=== PATIENT | male | born 1960 | race Caucasian/White ===

== ENCOUNTER 2018-09-04 00:10 | Inpatient (IN) | payer OTHER ==
[~2018-09-04] VITALS: Ht 172.7 cm; Wt 85.9 kg
[2018-09-04] MEDS ORDERED: SOD CHLORIDE 0.9% 1,000 ML IV STA (00:16)
--- NOTE | 2018-09-04 00:20 | ERD ---
ER Documentation Chief Complaint Chief Complaint R39. R SIDED WEAKNESS. 3 PRIOR STROKES. FROM HOME. LWKT 1200. HPI 58-year-old man with a history of stroke and chronic right-sided paresis brought in by EMS from home for about 12 hours of generalized weakness and difficulty speaking, family member who is at the bedside is worried about another stroke because she states he normally speaks more and holds conversations and was able to bathe himself this morning. Since noon he has been more bedbound and does not speak or hold conversations. He has had no fevers or chills, no vomiting or diarrhea, no complaints of chest pain or shortness of breath. Patient was transported here by EMS without complications. ROS All systems reviewed and are negative except as per history of present illness. PMhx/Soc Hypertension, history of stroke with right-sided paresis, expressive dysphasia FmHx Family History: No diabetes Physical Exam Vitals Vital Signs Date Temp Pulse Resp B/P (MAP) Pulse Ox O2 O2 Flow FiO2 Time Delivery Rate 09/04/18 98.7 95 18 204/83 100 00:13 (123) Physical Exam Const: Well developed well-nourished man, appears dehydrated, afebrile HEENT: Dry mucous membranes, no cervical spine deformity Resp: Clear to auscultation bilaterally Cardio: Regular rate and rhythm, no murmurs Ext: No cyanosis, or edema, calves symmetrical Neur: Eyes are open patient is mute, responsive to voice, patient has chronic right upper and lower extremity paresis moving left upper and lower extremity without difficulty Psych: Normal Mood and Affect Result Diagram: 09/04/18 0028 09/04/18 0028 Results 24 hrs Laboratory Tests Test 09/04/18 00:28 White Blood Count 11.1 10^3/ul Red Blood Count 4.92 10^6/ul Hemoglobin 14.1 g/dl Hematocrit 41.3 % Mean Corpuscular Volume 83.9 fl Mean Corpuscular Hemoglobin 28.7 pg Mean Corpuscular Hemoglobin Concent 34.1 g/dl Red Cell Distribution Width 12.7 % Platelet Count 302 10^3/UL Mean Platelet Volume 9.8 fl Immature Granulocytes % 0.200 % Neutrophils % 77.4 % Lymphocytes % 16.5 % Monocytes % 5.3 % Eosinophils % 0.2 % Basophils % 0.4 % Nucleated Red Blood Cells % 0.0 /100WBC Immature Granulocytes # 0.020 10^3/ul Neutrophils # 8.6 10^3/ul Lymphocytes # 1.8 10^3/ul Monocytes # 0.6 10^3/ul Eosinophils # 0.0 10^3/ul Basophils # 0.0 10^3/ul Nucleated Red Blood Cells # 0.0 10^3/ul Sodium Level 142 mmol/L Potassium Level 3.6 mmol/L Chloride Level 99 mmol/L Carbon Dioxide Level 30 mmol/L Anion Gap 13 Blood Urea Nitrogen 21 mg/dl Creatinine 1.75 mg/dl Est Glomerular Filtrat Rate mL/min 40 mL/min Glucose Level 322 mg/dl Calcium Level 9.4 mg/dl Total Bilirubin 0.5 mg/dl Direct Bilirubin 0.00 mg/dl Indirect Bilirubin 0.5 mg/dl Aspartate Amino Transf (AST/SGOT) 23 IU/L Alanine Aminotransferase (ALT/SGPT) 17 IU/L Alkaline Phosphatase 110 IU/L Troponin I 0.056 ng/ml Total Protein 8.4 g/dl Albumin 4.5 g/dl Globulin 3.90 g/dl Albumin/Globulin Ratio 1.15 Lipase 64 U/L Current Medications Medications Dose Sig/Felipe Start Time Status Last (Trade) Ordered Route PRN Stop Time Admin Dose Reason Admin Sodium 1,000 ml @ Q1H STAT 09/04/18 DC 09/04/18 Chloride 1,000 mls/hr IV 00:16 09/04/18 00:53 01:15 Procedures/MDM IV line was established patient was placed on cardiac exercise specialist rhythm strip revealed a sinus rhythm at about 80 bpm with upright P and T waves. Patient was afebrile I administered 1 L normal saline IV EKG performed, read by me revealed a normal sinus rhythm at 91 bpm, normal axis, left ventricular conduction delay QRS duration 112 ms, no concerning ST elevations or depressions noted, diffuse T wave inversions 1 view chest x-ray performed, read by me reveals a pacemaker in the left chest, no acute infiltrates, no pneumothorax. CT scan of the brain was performed there is no acute bleed mass or shift, old CVAs noted. I administered aspirin 324 mg p.o. for neuro protective measures and enalapril 1.25 mg IV x1 for hypertension. CBC was unremarkable, electrolytes revealed dehydration with a BUN/creatinine of 21/1.8, liver function test normal, troponin negative, urinalysis is pending I will follow-up, if positive I will treat with antibiotics. Patient will be admitted to telemetry setting for continued medical management and neurology consultation, possible MRI Departure Diagnosis: Primary Impression: Acute weakness Additional Impressions: Acute dehydration Stroke CVA mechanism: unspecified Qualified Codes: I63.9 - Cerebral infarction, unspecified Altered mental status Altered mental status type: unspecified Qualified Codes: R41.82 - Altered mental status, unspecified Condition: AUGUSTINE Redd MD Sep 04, 2018 00:20
[2018-09-04] MEDS ORDERED: ENALAPRILAT 1.25 MG INJ IV ONE (02:00)
[2018-09-04] MEDS ORDERED: ASPIRIN 81 MG TAB PO ONE (02:00)
[2018-09-04] MEDS ORDERED: SOD CHLORIDE 0.9% 1,000 ML IV SCH (02:07)
[2018-09-04] MEDS ORDERED: ACETAMINOPHEN 650 MG SUPP PR PRN (02:30)
[2018-09-04] MEDS ORDERED: hydrALAzine 20 MG INJ IV PRN (02:30)
[2018-09-04] MEDS ORDERED: NACL 0.9% 3 ML SYG IV SCH (02:30)
--- NOTE | 2018-09-04 05:29 | HP ---
Date/Time of Note Date/Time of Note DATE: 09/04/18 TIME: 05:20 Assessment/Plan VTE Prophylaxis SCD applied (from Nsg): Yes Pharmacological prophylaxis: NA/contraindicated Pharm contraindication: low risk/ambulating Lines/Catheters IV Catheter Type (from Nrsg): Saline Lock Assessment/Plan Hospital Course This is a 58-year-old male being admitted to the telemetry floor for: #1 acute CVA: Patient has left-sided facial droop with right-sided weakness. Permissive hypertension for the first 24 hours, PRN hydralazine for blood pressure greater than 220/120 . Will initiate blood pressure medications after the 24-hour sonia from the incident. Patient did receive aspirin in the emergency room. Check hemoglobin a1C, lipid panel, TSH. MRI of the brain, MRA of the head and neck, 2D echocardiogram with Doppler study, carotid Doppler ultrasound. Neurology . #2 BRIDGETTE: Likely prerenal etiology, from previous baseline creatinine. Will monitor kidney function. Avoid nephrotoxic agents. We will hydrate the patient. #3 history of CVA : Patient has a history of 3 CVAs #4 insulin-dependent diabetes mitis: Insulin sliding scale, will need to confirm patient's home medications, will check hemoglobin A 1C next #5 coronary artery disease: Continue home medications, will check an echocardiogram with bubble study #6 DVT GI prophylaxis: SCDs, no GI prophylaxis indicated Further treatment strategy will be implemented as per the clinical Result Diagram: 09/04/18 0028 09/04/18 0028 Results 24hrs Laboratory Tests Test 09/04/18 00:28 White Blood Count 11.1 H Red Blood Count 4.92 Hemoglobin 14.1 Hematocrit 41.3 L Mean Corpuscular Volume 83.9 Mean Corpuscular Hemoglobin 28.7 L Mean Corpuscular Hemoglobin Concent 34.1 Red Cell Distribution Width 12.7 Platelet Count 302 Mean Platelet Volume 9.8 Immature Granulocytes % 0.200 Neutrophils % 77.4 H Lymphocytes % 16.5 Monocytes % 5.3 Eosinophils % 0.2 Basophils % 0.4 Nucleated Red Blood Cells % 0.0 Immature Granulocytes # 0.020 Neutrophils # 8.6 H Lymphocytes # 1.8 Monocytes # 0.6 Eosinophils # 0.0 Basophils # 0.0 Nucleated Red Blood Cells # 0.0 Urine Color YELLOW Urine Clarity CLEAR Urine pH 6.0 Urine Specific [place] 1.020 Urine Ketones NEGATIVE Urine Nitrite NEGATIVE Urine Bilirubin NEGATIVE Urine Urobilinogen NEGATIVE Urine Leukocyte Esterase NEGATIVE Urine Microscopic RBC 1 Urine Microscopic WBC 1 Urine Hemoglobin NEGATIVE Urine Glucose 3+ H Urine Total Protein 3+ H Sodium Level 142 Potassium Level 3.6 Chloride Level 99 Carbon Dioxide Level 30 Anion Gap 13 Blood Urea Nitrogen 21 H Creatinine 1.75 H Est Glomerular Filtrat Rate mL/min 40 L Glucose Level 322 H Calcium Level 9.4 Total Bilirubin 0.5 Direct Bilirubin 0.00 Indirect Bilirubin 0.5 Aspartate Amino Transf (AST/SGOT) 23 Alanine Aminotransferase (ALT/SGPT) 17 Alkaline Phosphatase 110 Troponin I 0.056 Total Protein 8.4 H Albumin 4.5 Globulin 3.90 H Albumin/Globulin Ratio 1.15 Lipase 64 HPI/ROS Admit Date/Time Admit Date/Time Hx of Present Illness Chief complaint: Generalized weakness, difficulty speaking 58-year-old man with a history of stroke and chronic right-sided paresis brought in by EMS from home for about 12 hours of generalized weakness and difficulty speaking, family member who is at the bedside is worried about another stroke because she states he normally speaks more and holds conversations and was able to bathe himself this morning. Since noon he has been more bedbound and does not speak or hold conversations. He has had no fevers or chills, no vomiting or diarrhea, no complaints of chest pain or shortness of breath. does state that he typically uses a walker at home but also is able to walk short distances without the use of a walker. Allergies: NKDA Medications: We will need to confirm patient's home medication ROS Const: As per HPI Eyes : No pain discharge or redness or change in visual acuity ENT: No pain, sore throat, congestion, congestion, dysphagia or discharge Respiratory: No shortness of breath, cough, sputum, wheezing, or pleuritic pain Cardiovascular: As per HPI GI : no change in appetite, abdominal pain, nausea, vomiting, diarrhea, constipation, or change in the color his stool Genitourinary: No dysuria, hematuria, flank pain , discharge or CVA tenderness Musculoskeletal: No joint pain, back pain, neck pain, restricted range of motion in neck or joints Skin: No rash, bruising or hives Neuro: No headache, dizziness, syncope, seizure, focal weakness Endocrine: No polyuria, polydipsia, temperature intolerance Psych: No hallucination, depression, anxiety or suicidal ideation PMH/Family/Social Past Medical History CVA x3 Insulin-dependent diabetes mellitus Pacemaker Coronary disease Medications Current Medications Sodium Chloride 1,000 ml @ 75 mls/hr [id number] IV ; Start 09/04/18 at 02:07; Stop 09/05/18 at 02:06 IV Flush (NS 3 ml) 3 ml PER PROTOCOL IV ; Start 09/04/18 at 02:30 Acetaminophen (Tylenol Supp) 650 mg Q6H PRN [place] .PAIN 1-3 OR TEMP; Start 09/04/18 at 02:30 Hydralazine HCl (Apresoline) 10 mg Q4H PRN IV ELEVATED BLOOD PRESSURE; Start 09/04/18 at 02:30 Amlodipine Besylate (Norvasc) 5 mg DAILY PO ; Start 09/04/18 at 14:00 Coded Allergies: No Known Allergy (Unverified , 09/04/18) Past Surgical History Pacemaker insertion Family History Significant Family History: no pertinent family hx Social History Smoking Status: Former smoker Exam/Review of Systems Vital Signs Vitals Vital Signs Date Temp Pulse Resp B/P (MAP) Pulse Ox O2 O2 Flow FiO2 Time Delivery Rate 09/04/18 97.6 77 17 151/76 99 Room Air 04:10 (101) Exam Exam General: Currently lying in bed in no acute distress HEENT: Atraumatic, normocephalic. The pupils are equal, round and reactive. Extraocular motor are intact, left-sided facial droop Neck: Supple with full range of motion. No rigidity or meningismus Chest: Nontender Lungs: Clear to auscultation bilaterally no crackles rales or wheezing Heart: Normal S1-S2, Regular rhythm and rate. No murmur, S3, or S4 Abdomen: Soft , nontender, nondistended , bowel sounds are present. No guarding no rebound tenderness , No masses or organomegaly. No costovertebral temporal angle mass Extremities: Normal to inspection, no edema no cyanosis Neurologic: Awake, but nonverbal, patient does have strength 2 out of 5 in bilateral upper and lower extremities, patient is able to move his bilateral upper and lower left extremity.. Additional Comments PROCEDURE: CT Brain without contrast. CLINICAL INDICATION: Altered mental status TECHNIQUE: A CT of the brain was performed utilizing axial imaging from the skull base through the vertex without IV contrast. Multiplanar reformatted images were made. Images were reviewed on a PACS workstation. CTDIvol: 39.30 mGy DLP: 634.23 mGycm DICOM images are available. One or more of the following dose reduction techniques were utilized: 1.) Automated exposure control 2.) Adjustment of the mA +/- kV according to patient's size 3.) Use of iterative reconstruction technique. COMPARISON: None FINDINGS: CALVARIUM: Regional bones are intact. SINUSES: Paranasal sinuses and mastoid air cells are clear. BRAIN: There is mild cerebral volume loss and there is patchy diminished attenuation within the subcortical and periventricular white matter, likely indicating chronic small vessel ischemic changes. Atherosclerotic calcifications noted at the carotid siphons. Prominent relatively symmetric calcifications present in the bilateral basal ganglia and thalami. No evidence for acute ischemia. There is no significant mass effect or evidence of acute hemorrhage. Ventricular prominence is in keeping with degree of sulcal and fissural widening. IMPRESSION: 1. No acute intracranial abnormality. 2. Generalized volume loss, atherosclerosis, moderate chronic small vessel ischemic changes. 3. Prominent calcifications in the bilateral thalami and basal ganglia, chronic and nonspecific, may represent idiopathic calcification, sequela of hyper/ hypoparathyroidism versus remote sequela of toxic exposure or infection. RPTAT: [facility] Physician Efren Date Time Electronically viewed and signed by Physician Efren on 09/04/2018 02:37 xB/ CC: AUGUSTINE JULIAN MD [id number] PROCEDURE: XR Chest. CLINICAL INDICATION: Abdominal pain. TECHNIQUE: PA and Lateral views of the chest were obtained. COMPARISON: None. FINDINGS: Left anterior chest wall dual chamber cardiac pacer, with intact pacing leads. Lead tips overlying the expected locations of the right atrium right ventricle. Cardiomegaly with mild pulmonary vascular congestion. Right pleural effusion and right mid lung and lung base atelectasis versus airspace disease. No signs of pleural fluid or pneumothorax are seen. The osseous structures and soft tissues are unremarkable. IMPRESSION: 1. Cardiomegaly and mild failure. 2. Right pleural effusion with right mid lung and lung base atelectasis. 3. Differential considerations include right lung base pneumonia. RPTAT: [facility] Physician Dorcas Date Time Electronically viewed and signed by Angelita Vasquez Physician on 09/04/2018 01:34 RS/ CC: AUGUSTINE JULIAN MD [id number] LEBRON GARCIA Sep 04, 2018 05:29
[2018-09-04 08:20] VITALS: BP 184/84; PULSE 76; RESP 17
[2018-09-04 09:31] VITALS: Ht 172.7 cm; Wt 85.9 kg
[2018-09-04] MEDS ORDERED: ASPI-903 PO (11:06)
[2018-09-04] MEDS ORDERED: FURO20TA3 PO (11:12)
[2018-09-04] MEDS ORDERED: SPIR100T4 PO (11:12)
[2018-09-04] MEDS ORDERED: ATOR-2 PO (11:12)
[2018-09-04] MEDS ORDERED: CHOL100062 PO (11:12)
[2018-09-04] MEDS ORDERED: INSU100I33 SC (11:17)
[2018-09-04] MEDS ORDERED: BENA5TAB33 PO (11:17)
[2018-09-04] MEDS ORDERED: FLUO10CA17 PO (11:17)
[2018-09-04] MEDS ORDERED: NOVO3I SC ×3 (11:17)
[2018-09-04] MEDS ORDERED: FER325 PO (11:17)
[2018-09-04] MEDS ORDERED: HYDR-3672 PO (11:17)
[2018-09-04] MEDS ORDERED: TAMS-14 PO (11:17)
[2018-09-04 11:36] VITALS: BP 174/82; PULSE 73; RESP 17
[2018-09-04] MEDS: AMLODIPINE 5 MG TAB PO SCH (13:14)
--- NOTE | 2018-09-04 13:19 | CONSI ---
Assessment/Plan Assessment/Plan Assessment/Plan (Recall) 58 M c/ report of prior stroke w/ ? residual R sided weakness (? L MCA) and other comorbidities... who presents for evaluation of new aphasia. The clinical picture is worrisome for a recurrent stroke. Focal seizure is additionally considered (especially given the chronicity of his R sided weakness...). Recrudescence is a Dx of exclusion.. Head CT is without obvious acute intracranial pathology. MRI brain is contraindicated 2/2 pacemaker. CTA is presently limited by acute renal failure.. LDL 148; A1C 8.1% P: EEG to evaluate for epileptiform activity Repeat CTH in am to evaluate for interval change CTA H/N when able, should kidney function continue to improve Await echo read Add UDS, ESR, RPR Agree w/ asa daily for secondary stroke prevention for now Add Lipitor 80 hs for the same.. Other risk factor modification and other medical management per primary PT/OT/ST as necessary Will follow clinically Consultation Date/Type/Reason Admit Date/Time Type of Consult Neurology Reason for Consultation aphasia Requesting Provider: LEBRON GARCIA Date/Time of Note DATE: 09/04/18 TIME: 13:06 Hx of Present Illness The patient is presently unable to contribute a Hx. It is elsewhere noted: 58-year-old man with a history of stroke and chronic right-sided paresis brought in by EMS from home for about 12 hours of generalized weakness and difficulty speaking, family member who is at the bedside is worried about another stroke because she states he normally speaks more and holds conversations and was able to bathe himself this morning. Since noon he has been more bedbound and does not speak or hold conversations. He has had no fevers or chills, no vomiting or diarrhea, no complaints of chest pain or shortness of breath. does state t hat he typically uses a walker at home but also is able to walk short distances without the use of a walker. Allergies: NKDA limited by aphasia Objective Exam Vitals Vital Signs Date Temp Pulse Resp B/P (MAP) Pulse Ox O2 O2 Flow FiO2 Time Delivery Rate 09/04/18 97.4 73 17 174/82 96 11:36 (112) 09/04/18 Room Air 08:20 Exam PE: Gen Appearance: No Apparent Distress HEENT: Normocephalic Cardiovascular: Regular rate Abdomen: Soft Extremities: Dry NE: The patient was alert though nonverbal. Cranial nerve examination was limited by mental status. Pupils were equal and reactive to light. There was no afferent pupillary defect. Funduscopic examination was limited. Face was grossly symmetric, w/ present corneal and cough reflexes. Tone was normal. Muscle bulk was normal. I did not see fasciculations. The patient moved his left side with good strength on command, though was weak on the right. Coordination and gait testing was limited by mental status. Arm and leg reflexes were brisk on the right. Ríos's sign was absent. Plantar response was extensor on the right. Results Result Diagram: 09/04/18 0028 09/04/18 0957 Results 24hrs Laboratory Tests Test 09/04/18 00:28 09/04/18 07:40 09/04/18 09:56 09/04/18 09:57 White Blood Count 11.1 H Red Blood Count 4.92 Hemoglobin 14.1 Hematocrit 41.3 L Mean Corpuscular Volume 83.9 Mean Corpuscular 28.7 L Hemoglobin Mean Corpuscular 34.1 Hemoglobin Concent Red Cell Distribution 12.7 Width Platelet Count 302 Mean Platelet Volume 9.8 Immature Granulocytes % 0.200 Neutrophils % 77.4 H Lymphocytes % 16.5 Monocytes % 5.3 Eosinophils % 0.2 Basophils % 0.4 Nucleated Red Blood 0.0 Cells % Immature Granulocytes # 0.020 Neutrophils # 8.6 H Lymphocytes # 1.8 Monocytes # 0.6 Eosinophils # 0.0 Basophils # 0.0 Nucleated Red Blood 0.0 Cells # Urine Color YELLOW Urine Clarity CLEAR Urine pH 6.0 Urine Specific [place] 1.020 Urine Ketones NEGATIVE Urine Nitrite NEGATIVE Urine Bilirubin NEGATIVE Urine Urobilinogen NEGATIVE Urine Leukocyte Esterase NEGATIVE Urine Microscopic RBC 1 Urine Microscopic WBC 1 Urine Hemoglobin NEGATIVE Urine Glucose 3+ H Urine Total Protein 3+ H Sodium Level 142 141 Potassium Level 3.6 3.5 Chloride Level 99 108 Carbon Dioxide Level 30 25 Anion Gap 13 8 Blood Urea Nitrogen 21 H 18 Creatinine 1.75 H 1.42 H Est Glomerular Filtrat 40 L 51 L Rate mL/min Glucose Level 322 H 83 # Calcium Level 9.4 8.7 Total Bilirubin 0.5 Direct Bilirubin 0.00 Indirect Bilirubin 0.5 Aspartate Amino 23 Transf (AST/SGOT) Alanine 17 Aminotransferase (ALT/SG PT) Alkaline Phosphatase 110 Troponin I 0.056 Total Protein 8.4 H Albumin 4.5 Globulin 3.90 H Albumin/Globulin Ratio 1.15 Lipase 64 Bedside Glucose 95 Hemoglobin A1c 8.1 H Triglycerides Level 301 H Cholesterol Level 233 H LDL Cholesterol, 148 Calculated HDL Cholesterol 25 L Cholesterol/HDL Ratio 9.3 Past Medical History reviewed Home Meds Reported Medications Insulin Aspart* (Novolog Insulin Pen*) 100 Unit/Ml Soln, 15 UNIT SC WITH LUNCH, EA 09/04/18 Insulin Aspart* (Novolog Insulin Pen*) 100 Unit/Ml Soln, 20 UNIT SC WITH DINNER, EA 09/04/18 Insulin Aspart* (Novolog Insulin Pen*) 100 Unit/Ml Soln, 10 UNIT SC WITH BREAKFAST, EA 09/04/18 Insulin Glargine,Hum.rec.anlog (Basaglar Kwikpen U-100) 100 Unit/1 Ml Insuln.pen, 40 UNIT SC QHS, EA 09/04/18 Benazepril Hcl* (Benazepril Hcl*) 5 Mg Tablet, 5 MG PO DAILY, #30 TAB 09/04/18 Hydralazine Hcl* (Hydralazine Hcl*) 50 Mg Tab, 12.5 MG PO TID, #90 TAB 09/04/18 Tamsulosin Hcl* (Flomax*) 0.4 Mg Cap.er.24h, 0.4 MG PO DAILY, CAP 09/04/18 Fluoxetine Hcl* (Fluoxetine Hcl*) 10 Mg Capsule, 10 MG PO DAILY, CAP 09/04/18 Ferrous Sulfate* (Ferrous Sulfate*) 325 Mg Tabec, 325 MG PO DAILY, TAB 09/04/18 Furosemide* (Furosemide*) 20 Mg Tablet, 60 MG PO BID, #30 TAB 09/04/18 Cholecalciferol* (Vitamin D3*) 1,000 Unit Tablet, 1000 UNIT PO DAILY, TAB 09/04/18 Atorvastatin* (Atorvastatin*) 80 Mg Tablet, 80 MG PO QHS, #30 TAB 09/04/18 Spironolactone* (Spironolactone*) 100 Mg Tablet, 25 MG PO DAILY, TAB 09/04/18 Aspirin* (Aspirin* Chew) 81 Mg Tab.chew, 81 MG PO DAILY, TAB.CHEW 09/04/18 Medications Current Medications IV Flush (NS 3 ml) 3 ml PER PROTOCOL IV ; Start 09/04/18 at 02:30 Acetaminophen (Tylenol Supp) 650 mg Q6H PRN [place] .PAIN 1-3 OR TEMP; Start 09/04/18 at 02:30 Hydralazine HCl (Apresoline) 10 mg Q4H PRN IV ELEVATED BLOOD PRESSURE; Start 09/04/18 at 02:30 Amlodipine Besylate (Norvasc) 5 mg DAILY PO ; Start 09/04/18 at 14:00 Allergies: Coded Allergies: No Known Allergy (Unverified , 09/04/18) Social History Smoking Status: Former smoker ALLYN CARTWRIGHT Sep 04, 2018 13:18
--- NOTE | 2018-09-04 15:22 | RADRPT ---
Echocardiogram Report Patient Name: SRI CUBAPatient ID: [id number] : 1960 (58y 6m)Study Date: 09/04/2018 9:26:02 AM Gender: MAccession #: [id number] Tech: Amrik Nielson [facility] Location: [facility] Ref.Physician: LEBRON GARCIA Height(Cm): BSA: Weight(Kg): Quality: AdequateOrder Physician: LEBRON GARCIA Account #: Procedures: Echocardiographic Report: Transthoracic echocardiogram with complete 2D, M-Mode, and doppler examination. Indications: Cerebrovascular Accident. Measurements: 2D/M Mode Doppler Measurement Value Normal Range Measurement Value Normal Range LVIDd 2D 4.5 [ 4.2 - 5.8 ] cm AV Peak Saulo 0.9 [ 100.0 - 170.0 ] cm/sec LVIDs 2D 4.2 [ 2.5 - 4.0 ] cm AV Peak PG 3.0 [ 2.0 - 9.0 ] mmHg LVPWd 2D 1.0 [ 0.6 - 1.0 ] cm LVOT Peak Saulo 0.6 [ 70.0 - 110.0 ] cm/sec IVSd 2D 1.4 [ 0.6 - 1.0 ] cm LVOT Peak PG 1.0 [ 2.0 - 6.0 ] mmHg AoR Diam 2D 3.5 [ 2.6 - 3.4 ] cm MV E Peak Saulo 1.0 [ 60.0 - 130.0 ] cm/sec EDV 2D 94.4 [ 62.0 - 150.0 ] ml MV A Peak Saulo 0.5 [ 100.0 - 120.0 ] cm/sec ESV 2D 78.6 [ 21.0 - 61.0 ] ml MV E/A 2.0 [ 0.8 - 1.5 ] ratio EF 2D 16.7 [ 52.0 - 72.0 ] percent MV Decel Time 148 [ 104 - 258 ] msec LA Dimen 2D 3.7 [ 3.0 - 4.0 ] cm Lat E` Saulo 0.1 [ 10.0 - 15.0 ] cm/sec Lateral E/E` 14.4 [ 1.0 - 2.0 ] ratio Med E` Saulo 0.0 cm/sec MV E/A 2.0 [ 0.8 - 1.5 ] ratio TR Peak Saulo 1.9 [ 100.0 - 280.0 ] cm/sec TR Peak PG 14.0 mmHg RVSP 24.0 [ 10.0 - 36.0 ] mmHg Findings: Left Ventricle: Normal left ventricular cavity size. Sigmoid septum. Severe global left ventricular systolic dysfunction. Ejection fraction is visually estimated at 25 %. Tissue Doppler/Mitral Doppler indices are consistent with pseudonormalization with mildly elevated left atrial pressure (Stage II diastolic dysfunction). Right Ventricle: Normal right ventricular size. Normal right ventricular systolic function. Linear artifact in right ventricle suggestive of catheter, pacer lead, or ICD lead. Left Atrium: The left atrium is normal in size. Right Atrium: The right atrium is normal in size. Atrial Septum: Bubble study was performed with and with out valsalva indicating no evidence of intra atrial shunt. Mitral Valve: Mild mitral leaflet calcification. Mild mitral annular calcification. Trace mitral regurgitation. Aortic Valve: No significant aortic stenosis or insufficiency. Aortic cusps appear mildly calcified. Tricuspid Valve: Normal appearance of the tricuspid valve. The estimated Peak RVSP is 24 mmHg. There is trace tricuspid regurgitation. Pericardium: Normal pericardium with no significant pericardial effusion. Aorta: Normal aortic root. IVC: Normal size and normal respiratory collapse consistent with normal right atrial pressure. Conclusions: Normal left ventricular cavity size. Sigmoid septum. Severe global left ventricular systolic dysfunction. Ejection fraction is visually estimated at 25 %. Tissue Doppler/Mitral Doppler indices are consistent with pseudonormalization with mildly elevated left atrial pressure (Stage II diastolic dysfunction). Mild mitral leaflet calcification. Mild mitral annular calcification. Trace mitral regurgitation. No significant aortic stenosis or insufficiency. Aortic cusps appear mildly calcified. Normal appearance of the tricuspid valve. The estimated Peak RVSP is 24 mmHg. There is trace tricuspid regurgitation. Bubble study was performed with and with out valsalva indicating no evidence of intra atrial shunt. Electronically Signed By: Chaka Bolivar 2018-09-04 15:21:55 PDT
--- NOTE | 2018-09-04 15:23 | PN ---
Date/Time of Note Date/Time of Note DATE: 09/04/18 TIME: 15:18 Assessment/Plan VTE Prophylaxis SCD applied (from Nsg): Yes Pharmacological prophylaxis: NA/contraindicated Pharm contraindication: low risk/ambulating Lines/Catheters IV Catheter Type (from Nrsg): Peripheral IV Assessment/Plan Hospital Course Assessment and plan 1. Suspect Acute CVA. -Patient with noted with right-sided weakness and left-sided facial droop with suspect aphasia. - Patient with permissive hypertension for now. - Neurologist following. - Continue with antiplatelet therapy as well as statin medication. - MRI of the brain could not be obtained due to pacemaker. - CT scan of the brain with with no acute intracranial abnormality. - Follow-up with PT/OT/ST follow-up on EEG per neurology. - CTA scan of the brain pending renal function. 2. BR[place]GETTE. - Continue with IV hydration. - Follow-up renal panel. - Group Home Supervisor following. - Follow-up renal ultrasound 3. History of CVA in the past. - Patient reportedly has history of CVA x3. - There is reported baseline of weakness on the right side. - PT to follow. 4. Diabetes. - Continue insulin regimen. 5. history of CAD. - Resume cardiovascular medications. Disposition plan. Awaiting PT/OT/ST. Follow-up on renal ultrasound. Follow-up on renal panel. Continue in-house monitoring for now. Discussed POC with Dr. Damon Result Diagram: 09/04/18 0028 09/04/18 0957 Results 24hrs Laboratory Tests Test 09/04/18 00:28 09/04/18 07:40 09/04/18 09:56 09/04/18 09:57 White Blood Count 11.1 H Red Blood Count 4.92 Hemoglobin 14.1 Hematocrit 41.3 L Mean Corpuscular Volume 83.9 Mean Corpuscular 28.7 L Hemoglobin Mean Corpuscular 34.1 Hemoglobin Concent Red Cell Distribution 12.7 Width Platelet Count 302 Mean Platelet Volume 9.8 Immature Granulocytes % 0.200 Neutrophils % 77.4 H Lymphocytes % 16.5 Monocytes % 5.3 Eosinophils % 0.2 Basophils % 0.4 Nucleated Red Blood 0.0 Cells % Immature Granulocytes # 0.020 Neutrophils # 8.6 H Lymphocytes # 1.8 Monocytes # 0.6 Eosinophils # 0.0 Basophils # 0.0 Nucleated Red Blood 0.0 Cells # Urine Color YELLOW Urine Clarity CLEAR Urine pH 6.0 Urine Specific [place] 1.020 Urine Ketones NEGATIVE Urine Nitrite NEGATIVE Urine Bilirubin NEGATIVE Urine Urobilinogen NEGATIVE Urine Leukocyte Esterase NEGATIVE Urine Microscopic RBC 1 Urine Microscopic WBC 1 Urine Hemoglobin NEGATIVE Urine Glucose 3+ H Urine Total Protein 3+ H Sodium Level 142 141 Potassium Level 3.6 3.5 Chloride Level 99 108 Carbon Dioxide Level 30 25 Anion Gap 13 8 Blood Urea Nitrogen 21 H 18 Creatinine 1.75 H 1.42 H Est Glomerular Filtrat 40 L 51 L Rate mL/min Glucose Level 322 H 83 # Calcium Level 9.4 8.7 Total Bilirubin 0.5 Direct Bilirubin 0.00 Indirect Bilirubin 0.5 Aspartate Amino 23 Transf (AST/SGOT) Alanine 17 Aminotransferase (ALT/SG PT) Alkaline Phosphatase 110 Troponin I 0.056 Total Protein 8.4 H Albumin 4.5 Globulin 3.90 H Albumin/Globulin Ratio 1.15 Lipase 64 Bedside Glucose 95 Hemoglobin A1c 8.1 H Triglycerides Level 301 H Cholesterol Level 233 H LDL Cholesterol, 148 Calculated HDL Cholesterol 25 L Cholesterol/HDL Ratio 9.3 Subjective 24 Hr Interval Summary Free Text/Dictation Appears somewhat aphasic. Family at bedside. Noted with weakness on right side of the body Exam/Review of Systems Exam Vitals Vital Signs Date Temp Pulse Resp B/P (MAP) Pulse Ox O2 O2 Flow FiO2 Time Delivery Rate 09/04/18 97.4 73 17 174/82 96 11:36 (112) 09/04/18 Room Air 08:20 Constitutional: alert Respiratory: clear to auscultation Cardiovascular: regular rate and rhythm Gastrointestinal: soft, non-tender Musculoskeletal: muscle weakness (right side) Neurological: No BRICKLAYER SEWER II-XII intact, No nl speech Skin: No ecchymosis Results Results 24hrs Laboratory Tests Test 09/04/18 00:28 09/04/18 07:40 09/04/18 09:56 09/04/18 09:57 White Blood Count 11.1 H Red Blood Count 4.92 Hemoglobin 14.1 Hematocrit 41.3 L Mean Corpuscular Volume 83.9 Mean Corpuscular 28.7 L Hemoglobin Mean Corpuscular 34.1 Hemoglobin Concent Red Cell Distribution 12.7 Width Platelet Count 302 Mean Platelet Volume 9.8 Immature Granulocytes % 0.200 Neutrophils % 77.4 H Lymphocytes % 16.5 Monocytes % 5.3 Eosinophils % 0.2 Basophils % 0.4 Nucleated Red Blood 0.0 Cells % Immature Granulocytes # 0.020 Neutrophils # 8.6 H Lymphocytes # 1.8 Monocytes # 0.6 Eosinophils # 0.0 Basophils # 0.0 Nucleated Red Blood 0.0 Cells # Urine Color YELLOW Urine Clarity CLEAR Urine pH 6.0 Urine Specific [place] 1.020 Urine Ketones NEGATIVE Urine Nitrite NEGATIVE Urine Bilirubin NEGATIVE Urine Urobilinogen NEGATIVE Urine Leukocyte Esterase NEGATIVE Urine Microscopic RBC 1 Urine Microscopic WBC 1 Urine Hemoglobin NEGATIVE Urine Glucose 3+ H Urine Total Protein 3+ H Sodium Level 142 141 Potassium Level 3.6 3.5 Chloride Level 99 108 Carbon Dioxide Level 30 25 Anion Gap 13 8 Blood Urea Nitrogen 21 H 18 Creatinine 1.75 H 1.42 H Est Glomerular Filtrat 40 L 51 L Rate mL/min Glucose Level 322 H 83 # Calcium Level 9.4 8.7 Total Bilirubin 0.5 Direct Bilirubin 0.00 Indirect Bilirubin 0.5 Aspartate Amino 23 Transf (AST/SGOT) Alanine 17 Aminotransferase (ALT/SG PT) Alkaline Phosphatase 110 Troponin I 0.056 Total Protein 8.4 H Albumin 4.5 Globulin 3.90 H Albumin/Globulin Ratio 1.15 Lipase 64 Bedside Glucose 95 Hemoglobin A1c 8.1 H Triglycerides Level 301 H Cholesterol Level 233 H LDL Cholesterol, 148 Calculated HDL Cholesterol 25 L Cholesterol/HDL Ratio 9.3 Medications Medication Current Medications IV Flush (NS 3 ml) 3 ml PER PROTOCOL IV ; Start 09/04/18 at 02:30 Acetaminophen (Tylenol Supp) 650 mg Q6H PRN [place] .PAIN 1-3 OR TEMP; Start 09/04/18 at 02:30 Hydralazine HCl (Apresoline) 10 mg Q4H PRN IV ELEVATED BLOOD PRESSURE; Start 09/04/18 at 02:30 Amlodipine Besylate (Norvasc) 5 mg DAILY PO Last administered on 09/04/18at 13:14; Admin Dose 5 MG; Start 09/04/18 at 14:00 Atorvastatin Calcium (Lipitor) 80 mg HS PO ; Start 09/04/18 at 21:00 EDGAR KING NP Sep 04, 2018 15:23
[2018-09-04 15:44] VITALS: BP 161/78; PULSE 76; RESP 17
--- NOTE | 2018-09-04 16:27 | CONS ---
DATE OF ADMISSION: 09/04/2018 DATE OF CONSULTATION: 09/04/2018 TYPE OF CONSULTATION: Nephrology. REASON FOR CONSULTATION: Acute kidney injury. PROVIDER REQUESTING CONSULTATION: Jayant Hernández NP HISTORY OF PRESENT ILLNESS: This is a 58-year-old male with a past medical history of heart failure with ejection fraction of 30%, history of CVA, history of diabetes and coronary artery disease, who p resented to [facility] with generalized weakness and dysarthria. The patient at [facility] has got chronic right-sided hemiparesis, was noted to have inability to speak or hold conversa tions. As a result, the patient was admitted to [facility] for evaluation. Upon a rrival, the patient had a CT scan of the brain that showed no acute findings, generalized volume loss , calcifications in the thalamus and basal ganglia. The patient was subsequently admitted to [facility] for evaluation and continued care. In terms of patient's renal history, per patient's at bedside states that he has underlying CKD with unknown baseline renal function. The patient's states that his renal function betwee n diuretic use. On admission, the patient has creatinine of 1.75 mg/dL which is improved with suppor tive care. There have been no reports of hemoptysis, hematemesis or hematochezia. PAST MEDICAL HISTORY: History of CVA, history of diabetes, history of coronary artery disease, histo ry of CKD. FAMILY HISTORY: No family history of kidney disease. SOCIAL HISTORY: Does not drink, smoke or do drugs. PAST SURGICAL HISTORY: Status post pacemaker placement. MEDICATIONS: Have been reviewed. ALLERGIES: HAVE BEEN REVIEWED. NO KNOWN DRUG ALLERGIES. REVIEW OF SYSTEMS: Unable to do adequate review systems as patient is nonverbal. Pertinent positive s as obtained by reviewing medical records, speaking to hospital staff, stated in HPI; otherwise nega tive. PHYSICAL EXAMINATION: VITAL SIGNS: Blood pressure is 174/82, respirations 17, pulse 83, temperature 97.4. HEENT: Head is normocephalic. NECK: Supple. HEART: Regular rate. LUNGS: Show diminished breath sounds at the base. ABDOMEN: Soft, nontender to palpation without rebound or guarding. EXTREMITIES: Negative for clubbing, cyanosis. No edema. NEUROLOGIC: The patient has right-sided hemiparesis, currently aphasic. DERMATOLOGIC: No rashes. LABORATORY DATA: Have been reviewed. IMAGING STUDIES: Have been reviewed. ASSESSMENT AND PLAN: This is a 58-year-old male who presents with: 1. Nonoliguric acute kidney injury on top of chronic kidney disease with unknown baseline creatinine . Etiology of current acute kidney injury is secondary to hemodynamics, possible BILLIE inhibitor effec t. The patient's renal function has improved with supportive care and IV fluids. The patient's urin alysis is bland, no active sediment, positive proteinuria. Recommendation at this point is to contin ue current medical management, continue supportive care and renally dose all medications. Avoid BILLIE inhibitors at this time until renal function stabilizes if possible. Also attempt to avoid significa nt hemodynamic fluctuations. 2. Mineral bone disorder. Monitor calcium and phosphorus levels. 3. Hypertension. Etiology may be secondary to acute cerebrovascular accident. Continue to monitor closely. Continue current blood pressure regimen. We would defer BILLIE inhibitor at this time. Avoid hypotensive episodes in the setting of possible cerebrovascular accident. Permissive hypertension m ay be required. 4. Aphasia, possible acute cerebrovascular accident. Initial CT scan was negative. Continue to mon itor. Follow up with neurology. 5. History of cerebrovascular accident. Continue medical management. 6. Diabetes. Continue current insulin regimen. 7. Coronary artery disease. Continue current medical management. Follow up with cardiology. 8. History of congestive heart failure, currently compensated. Monitor closely on IV fluids. Thank you, Jayant, for this interesting consult. It will be a pleasure to follow patient with charli t hroughout the hospital course. Dictated By: BROOKS HER DO NR/NTS Conf#: [id number] DID#: [id number] CC: LEBRON GARCIA MD; HASMUKH KWAN MD;*EndCC*
[2018-09-04 20:00] VITALS: BP 146/98; PULSE 84; RESP 18
[2018-09-04] MEDS ORDERED: GLUCAGON 1 MG INJ IM PRN (21:00)
[2018-09-04] MEDS ORDERED: GLUCOSE GEL 15 GRAM TUBE PO PRN ×2 (21:00)
[2018-09-04] MEDS ORDERED: DEXTROSE 50% 50 ML SYRINGE IV PRN ×2 (21:00)
[2018-09-04] MEDS ORDERED: GLUCOSE GEL 15 GRAM TUBE BUCCAL PRN (21:00)
[2018-09-04] MEDS: ATORVASTATIN 80 MG TAB PO SCH (21:50)
[2018-09-04] MEDS: INSULIN ASPART [NOVOLOG] 3 ML PEN SC SCH (22:10)
[2018-09-05 00:08] VITALS: BP 130/71; PULSE 73; RESP 18
[2018-09-05] MEDS: ACCU-CHEK XX SCH (01:50)
[2018-09-05 04:00] VITALS: BP 147/60; PULSE 68; RESP 18
--- NOTE | 2018-09-05 06:44 | EEG ---
EEG NOTE Report Details DATE OF TEST: 09/04/18 HISTORY: The patient is a 58-year-old M who presents with aphasia. This EEG is requested to evaluate for seizures. SEDATION: None. CONDITIONS OF RECORDING: This EEG was recorded digitally on the [employer] machine, using the International 10-20 System of electrodes plus anterior temporals and [place]. STATES SAMPLED: Wakefulness and drowsiness. FINDINGS: The background is continuous and grossly symmetric. A well-formed posterior dominant rhythm is absent. The normal [id number] frequency-amplitude gradient was absent. The remainder of the awake background is notable for admixed theta and delta activity. Photic stimulation does not elicit any definite driving responses or epileptiform discharges. Hyperventilation was not performed. No asymmetries, focal abnormalities or epileptiform discharges were seen. IMPRESSION: Abnormal electroencephalogram due to: diffuse slowing. COMMENT: The slowing of the background indicates diffuse cortical dysfunction of nonspecific etiology. ALLYN CARTWRIGHT Sep 05, 2018 06:44
[2018-09-05 07:08] VITALS: BP 152/70; PULSE 71; RESP 20
[2018-09-05] MEDS: AMLODIPINE 5 MG TAB PO SCH (08:28)
[2018-09-05] MEDS: INSULIN ASPART [NOVOLOG] 3 ML PEN SC SCH ×4 (08:34→21:00)
--- NOTE | 2018-09-05 08:52 | PN ---
DATE: 09/05/2018 SUBJECTIVE: The patient had an episode of urinary retention overnight, in and out catheterization. No other acute events noted. No hemoptysis, hematemesis or hematochezia. OBJECTIVE: VITAL SIGNS: Blood pressure is 152/70, pulse 71, respirations 20, temperature 98.6. HEENT: Head is normocephalic. NECK: Supple. HEART: Regular rate. LUNGS: Show diminished breath sounds at the base. ABDOMEN: Soft, nontender to palpation without rebound or guarding. EXTREMITIES: Negative for clubbing, cyanosis, no edema. DERMATOLOGIC: No rashes. MUSCULOSKELETAL: No joint effusion. NEUROLOGIC: No change in exam. MEDICATIONS: Reviewed. LABORATORY DATA: Reviewed. IMAGING STUDIES: Reviewed. ASSESSMENT AND PLAN: 1. Nonoliguric acute kidney injury on top of chronic kidney disease with unknown baseline creatinine . Etiology of acute kidney injury is secondary to hemodynamics, BILLIE inhibitor effect, diuretics. Th e patient's renal function has improved with supportive care. At this point, continue current treatm ent plan, supportive care, renally dose all medications. 2. Mineral bone disorder, monitor calcium and phosphorus levels. 3. Hypertension. Blood pressure is improving. Continue current medical management. 4. Aphasia possible cerebrovascular accident versus seizure. Continue to monitor. Neurology workup is ongoing. 5. History of cerebrovascular accident. Continue medical management. 6. Diabetes. Continue current insulin regimen. 7. Benign prostatic hypertrophy. The patient had status post intermittent catheterization. Continu e to monitor. Consider resuming Flomax. 8. History of congestive heart failure, currently compensated. 9. History of coronary artery disease. Continue medical management. Dictated By: BROOKS HER DO NR/NTS Conf#: [id number] DID#: [id number] CC: LEBRON GARCIA MD; BROOKS HER DO; HASMUKH KWAN MD;*EndCC*
[2018-09-05 11:36] VITALS: BP 146/80; PULSE 78; RESP 20
--- NOTE | 2018-09-05 13:16 | CONS ---
Assessment/Plan Assessment/Plan Assessment/Plan (Recall) 58 M c/ report of prior stroke w/ ? residual R sided weakness (? L MCA) and other comorbidities... who presents for evaluation of new aphasia. The clinical picture is worrisome for a recurrent stroke. Focal seizure was additionally considered (especially given the chronicity of his R sided weakness...); however, EEG is without epileptiform activity Recrudescence is a Dx of exclusion.. Head CT was without obvious acute intracranial pathology. MRI brain is contraindicated 2/2 pacemaker. TTE was notable for severe, global LV systolic dysfunction. CTA is presently limited by acute renal failure.. LDL 148; A1C 8.1%, RPR neg; UDS neg P: Repeat CTH to evaluate for interval change CTA H/N when able, should kidney function continue to improve Agree w/ asa daily for secondary stroke prevention for now Continue Lipitor 80 hs for the same.. Other risk factor modification and other medical management per primary PT/OT/ST as necessary Will follow clinically Consultation Date/Type/Reason Admit Date/Time Sep 04, 2018 at 02:03 Type of Consult Neurology Reason for Consultation aphasia Requesting Provider: LEBRON GARCIA Date/Time of Note DATE: 09/05/18 TIME: 13:12 24 HR Interval Summary Free Text/Dictation Continues acute care Exam/Review of Systems Exam Vitals Vital Signs Date Temp Pulse Resp B/P (MAP) Pulse Ox O2 O2 Flow FiO2 Time Delivery Rate 09/05/18 97.7 78 20 146/80 94 11:36 (102) 09/05/18 Room Air 04:00 Intake and Output 09/04/18 09/04/18 09/05/18 1515:00 23:00 07:00 IntakeIntake Total 350 ml 200 ml 50 ml OutputOutput Total 225 ml 200 ml BalanceBalance 350 ml -25 ml -150 ml Results Result Diagram: 09/05/18 0550 09/05/18 0550 Results 24hrs Laboratory Tests Test 09/04/18 14:00 09/04/18 18:00 09/04/18 22:06 09/05/18 01:40 Erythrocyte 43 H Sedimentation Rate Urine Color YELLOW Urine Clarity CLEAR Urine pH 5.0 Urine Specific [place] 1.014 Urine Ketones NEGATIVE Urine Nitrite NEGATIVE Urine Bilirubin NEGATIVE Urine Urobilinogen NEGATIVE Urine Leukocyte Esterase NEGATIVE Urine Microscopic RBC 1 Urine Microscopic WBC 1 Urine Hemoglobin NEGATIVE Urine Random Creatinine 97.56 Urine Random Sodium 80 Urine Glucose 3+ H Urine Total Protein Urine Opiates Screen Negative Urine Barbiturates Negative Urine Amphetamines Negative Screen Urine Benzodiazepines Negative Screen Urine Cocaine Screen Negative Urine Cannabinoids Negative Bedside Glucose 229 H 195 Test 09/05/18 05:50 09/05/18 08:01 09/05/18 12:03 White Blood Count 11.5 H Red Blood Count 4.54 L Hemoglobin 13.0 L Hematocrit 37.8 L Mean Corpuscular Volume 83.3 Mean Corpuscular 28.6 L Hemoglobin Mean Corpuscular 34.4 Hemoglobin Concent Red Cell Distribution 12.7 Width Platelet Count 291 Mean Platelet Volume 10.0 Immature Granulocytes % 0.300 Neutrophils % 68.7 Lymphocytes % 22.4 Monocytes % 5.7 Eosinophils % 2.3 Basophils % 0.6 Nucleated Red Blood 0.0 Cells % Immature Granulocytes # 0.040 H Neutrophils # 7.9 H Lymphocytes # 2.6 Monocytes # 0.7 Eosinophils # 0.3 Basophils # 0.1 Nucleated Red Blood 0.0 Cells # Sodium Level 140 Potassium Level 3.5 Chloride Level 106 Carbon Dioxide Level 25 Anion Gap 9 Blood Urea Nitrogen 18 Creatinine 1.48 H Est Glomerular Filtrat 48 L Rate mL/min Glucose Level 178 Calcium Level 8.8 Magnesium Level 1.9 Total Bilirubin 0.5 Direct Bilirubin 0.00 Indirect Bilirubin 0.5 Aspartate Amino 27 Transf (AST/SGOT) Alanine 17 Aminotransferase (ALT/SG PT) Alkaline Phosphatase 90 Total Protein 7.1 # Albumin 3.6 Globulin 3.50 H Albumin/Globulin Ratio 1.02 Thyroid Stimulating 1.720 Hormone (TSH) Bedside Glucose 172 164 Medications Medication Current Medications IV Flush (NS 3 ml) 3 ml PER PROTOCOL IV ; Start 09/04/18 at 02:30 Acetaminophen (Tylenol Supp) 650 mg Q6H PRN [place] .PAIN 1-3 OR TEMP; Start 09/04/18 at 02:30 Hydralazine HCl (Apresoline) 10 mg Q4H PRN IV ELEVATED BLOOD PRESSURE; Start 09/04/18 at 02:30 Amlodipine Besylate (Norvasc) 5 mg DAILY PO Last administered on 09/05/18at 08:28; Admin Dose 5 MG; Start 09/04/18 at 14:00 Atorvastatin Calcium (Lipitor) 80 mg HS PO Last administered on 09/04/18at 21:50; Admin Dose 80 MG; Start 09/04/18 at 21:00 Diagnostic Test (Pha) (Accu-Chek) 1 ea 02 XX Last administered on 09/05/18at 01:50; Admin Dose 1 EA; Start 09/05/18 at 02:00 Insulin Aspart (Novolog Insulin Pen) NOVOLOG *MILD* ALGORITHM WITH MEALS BEDTIME SC Last administered on 09/05/18at 12:10; Admin Dose 1 UNIT; Start 09/04/18 at 21:30 Miscellaneous Information 1 ea NOTE XX ; Start 09/04/18 at 21:00 Glucose (Glutose) 15 gm Q15M PRN PO DECREASED GLUCOSE; Start 09/04/18 at 21:00 Glucose (Glutose) 22.5 gm Q15M PRN PO DECREASED GLUCOSE; Start 09/04/18 at 21:00 Dextrose (D50w Syringe) 25 ml Q15M PRN IV DECREASED GLUCOSE; Start 09/04/18 at 21:00 Dextrose (D50w Syringe) 50 ml Q15M PRN IV DECREASED GLUCOSE; Start 09/04/18 at 21:00 Glucagon (Glucagen) 1 mg Q15M PRN IM DECREASED GLUCOSE; Start 09/04/18 at 21:00 Glucose (Glutose) 15 gm Q15M PRN BUCCAL DECREASED GLUCOSE; Start 09/04/18 at 21:00 Insulin Glargine (Lantus) 13 units DAILY@0800 SC ; Start 09/06/18 at 08:00 ALLYN CARTWRIGHT Sep 05, 2018 13:16
--- NOTE | 2018-09-05 14:23 | PN ---
Date/Time of Note Date/Time of Note DATE: 09/05/18 TIME: 14:18 Assessment/Plan VTE Prophylaxis Risk score (from Ns)>0 risk: 4 [place] [facility] [place] Pharmacological prophylaxis: heparin Lines/Catheters IV [facility] (from [facility]): Peripheral IV Assessment/Plan Hospital Course Assessment and plan 1. Suspect Acute CVA. -Patient with noted with right-sided weakness and left-sided facial droop with aphasia. - Neurologist following. - Continue with antiplatelet therapy as well as statin medication. - MRI of the brain could not be obtained due to pacemaker. - 1st CT scan of the brain with with no acute intracranial abnormality. - Follow-up with PT/OT/ST - further brain imaging per neurologist 2. BRIDGETTE. - Continue with IV hydration. - monitor renal panel. - Technology Teacher following. 3. History of CVA in the past. - Patient reportedly has history of CVA x3. - There is reported baseline of weakness on the right side. - PT following 4. Diabetes. - Continue insulin regimen. 5. history of CAD. - Resume cardiovascular medications. Disposition plan. Continue physical therapy services. Further brain imaging per neurologist. Discussed case with patient's family. We will see for possible retirement facility versus ARU. continue to monitor Discussed POC with Dr. Damon Result Diagram: 09/05/18 0550 09/05/18 0550 Results 24hrs Laboratory Tests Test 09/04/18 18:00 09/04/18 22:06 09/05/18 01:40 09/05/18 05:50 Urine Color YELLOW Urine Clarity CLEAR Urine pH 5.0 Urine Specific [place] 1.014 Urine Ketones NEGATIVE Urine Nitrite NEGATIVE Urine Bilirubin NEGATIVE Urine Urobilinogen NEGATIVE Urine Leukocyte Esterase NEGATIVE Urine Microscopic RBC 1 Urine Microscopic WBC 1 Urine Hemoglobin NEGATIVE Urine Random Creatinine 97.56 Urine Random Sodium 80 Urine Glucose 3+ H Urine Total Protein Urine Opiates Screen Negative Urine Barbiturates Negative Urine Amphetamines Negative Screen Urine Benzodiazepines Negative Screen Urine Cocaine Screen Negative Urine Cannabinoids Negative Bedside Glucose 229 H 195 White Blood Count 11.5 H Red Blood Count 4.54 L Hemoglobin 13.0 L Hematocrit 37.8 L Mean Corpuscular Volume 83.3 Mean Corpuscular 28.6 L Hemoglobin Mean Corpuscular 34.4 Hemoglobin Concent Red Cell Distribution 12.7 Width Platelet Count 291 Mean Platelet Volume 10.0 Immature Granulocytes % 0.300 Neutrophils % 68.7 Lymphocytes % 22.4 Monocytes % 5.7 Eosinophils % 2.3 Basophils % 0.6 Nucleated Red Blood 0.0 Cells % Immature Granulocytes # 0.040 H Neutrophils # 7.9 H Lymphocytes # 2.6 Monocytes # 0.7 Eosinophils # 0.3 Basophils # 0.1 Nucleated Red Blood 0.0 Cells # Sodium Level 140 Potassium Level 3.5 Chloride Level 106 Carbon Dioxide Level 25 Anion Gap 9 Blood Urea Nitrogen 18 Creatinine 1.48 H Est Glomerular Filtrat 48 L Rate mL/min Glucose Level 178 Calcium Level 8.8 Magnesium Level 1.9 Total Bilirubin 0.5 Direct Bilirubin 0.00 Indirect Bilirubin 0.5 Aspartate Amino 27 Transf (AST/SGOT) Alanine 17 Aminotransferase (ALT/SG PT) Alkaline Phosphatase 90 Total Protein 7.1 # Albumin 3.6 Globulin 3.50 H Albumin/Globulin Ratio 1.02 Thyroid Stimulating 1.720 Hormone (TSH) Test 09/05/18 08:01 09/05/18 12:03 Bedside Glucose 172 164 Subjective 24 Hr Interval Summary Free Text/Dictation still aphasic. still noted with right sided weakness. family at bedside. Exam/Review of Systems Exam Vitals Vital Signs Date Temp Pulse Resp B/P (MAP) Pulse Ox O2 O2 Flow FiO2 Time Delivery Rate 09/05/18 97.7 78 20 146/80 94 11:36 (102) 09/05/18 Room Air 04:00 Intake and Output 09/04/18 09/04/18 09/05/18 1515:00 23:00 07:00 IntakeIntake Total 350 ml 200 ml 50 ml OutputOutput Total 225 ml 200 ml BalanceBalance 350 ml -25 ml -150 ml Exam Constitutional: alert Respiratory: clear to auscultation Cardiovascular: regular rate and rhythm Gastrointestinal: soft, non-tender Musculoskeletal: muscle weakness (right side) Neurological: No METAL WINDOW SCREEN ASSEMBLER II-XII intact, No nl speech Skin: No ecchymosis Results Results 24hrs Laboratory Tests Test 09/04/18 18:00 09/04/18 22:06 09/05/18 01:40 09/05/18 05:50 Urine Color YELLOW Urine Clarity CLEAR Urine pH 5.0 Urine Specific [place] 1.014 Urine Ketones NEGATIVE Urine Nitrite NEGATIVE Urine Bilirubin NEGATIVE Urine Urobilinogen NEGATIVE Urine Leukocyte Esterase NEGATIVE Urine Microscopic RBC 1 Urine Microscopic WBC 1 Urine Hemoglobin NEGATIVE Urine Random Creatinine 97.56 Urine Random Sodium 80 Urine Glucose 3+ H Urine Total Protein Urine Opiates Screen Negative Urine Barbiturates Negative Urine Amphetamines Negative Screen Urine Benzodiazepines Negative Screen Urine Cocaine Screen Negative Urine Cannabinoids Negative Bedside Glucose 229 H 195 White Blood Count 11.5 H Red Blood Count 4.54 L Hemoglobin 13.0 L Hematocrit 37.8 L Mean Corpuscular Volume 83.3 Mean Corpuscular 28.6 L Hemoglobin Mean Corpuscular 34.4 Hemoglobin Concent Red Cell Distribution 12.7 Width Platelet Count 291 Mean Platelet Volume 10.0 Immature Granulocytes % 0.300 Neutrophils % 68.7 Lymphocytes % 22.4 Monocytes % 5.7 Eosinophils % 2.3 Basophils % 0.6 Nucleated Red Blood 0.0 Cells % Immature Granulocytes # 0.040 H Neutrophils # 7.9 H Lymphocytes # 2.6 Monocytes # 0.7 Eosinophils # 0.3 Basophils # 0.1 Nucleated Red Blood 0.0 Cells # Sodium Level 140 Potassium Level 3.5 Chloride Level 106 Carbon Dioxide Level 25 Anion Gap 9 Blood Urea Nitrogen 18 Creatinine 1.48 H Est Glomerular Filtrat 48 L Rate mL/min Glucose Level 178 Calcium Level 8.8 Magnesium Level 1.9 Total Bilirubin 0.5 Direct Bilirubin 0.00 Indirect Bilirubin 0.5 Aspartate Amino 27 Transf (AST/SGOT) Alanine 17 Aminotransferase (ALT/SG PT) Alkaline Phosphatase 90 Total Protein 7.1 # Albumin 3.6 Globulin 3.50 H Albumin/Globulin Ratio 1.02 Thyroid Stimulating 1.720 Hormone (TSH) Test 09/05/18 08:01 09/05/18 12:03 Bedside Glucose 172 164 Medications Medication Current Medications IV Flush (NS 3 ml) 3 ml PER PROTOCOL IV ; Start 09/04/18 at 02:30 Acetaminophen (Tylenol Supp) 650 mg Q6H PRN [place] .PAIN 1-3 OR TEMP; Start 09/04/18 at 02:30 Hydralazine HCl (Apresoline) 10 mg Q4H PRN IV ELEVATED BLOOD PRESSURE; Start 09/04/18 at 02:30 Amlodipine Besylate (Norvasc) 5 mg DAILY PO Last administered on 09/05/18at 0 8:28; Admin Dose 5 MG; Start 09/04/18 at 14:00 Atorvastatin Calcium (Lipitor) 80 mg HS PO Last administered on 09/04/18at 21:50; Admin Dose 80 MG; Start 09/04/18 at 21:00 Diagnostic Test (Pha) (Accu-Chek) 1 ea 02 XX Last administered on 09/05/18at 01:50; Admin Dose 1 EA; Start 09/05/18 at 02:00 Insulin Aspart (Novolog Insulin Pen) NOVOLOG *MILD* ALGORITHM WITH MEALS BEDTIME SC Last administered on 09/05/18at 12:10; Admin Dose 1 UNIT; Start 09/04/18 at 21:30 Miscellaneous Information 1 ea NOTE XX ; Start 09/04/18 at 21:00 Glucose (Glutose) 15 gm Q15M PRN PO DECREASED GLUCOSE; Start 09/04/18 at 21:00 Glucose (Glutose) 22.5 gm Q15M PRN PO DECREASED GLUCOSE; Start 09/04/18 at 21:00 Dextrose (D50w Syringe) 25 ml Q15M PRN IV DECREASED GLUCOSE; Start 09/04/18 at 21:00 Dextrose (D50w Syringe) 50 ml Q15M PRN IV DECREASED GLUCOSE; Start 09/04/18 at 21:00 Glucagon (Glucagen) 1 mg Q15M PRN IM DECREASED GLUCOSE; Start 09/04/18 at 21:00 Glucose (Glutose) 15 gm Q15M PRN BUCCAL DECREASED GLUCOSE; Start 09/04/18 at 21:00 Insulin Glargine (Lantus) 13 units DAILY@0800 SC ; Start 09/06/18 at 08:00 EDGAR KING NP Sep 05, 2018 14:23
[2018-09-05 15:18] VITALS: BP 158/68; PULSE 81; RESP 20
[2018-09-05 20:00] VITALS: BP 174/80; PULSE 80; RESP 20
[2018-09-05] MEDS: ATORVASTATIN 80 MG TAB PO SCH (20:48)
[2018-09-05] MEDS: HEPARIN 5,000 UNIT/1 ML VIAL SC SCH (21:01)
[2018-09-06] VITALS (7 sets, daily range): BP systolic 132–163; BP diastolic 74–91; PULSE 68–79; RESP 16–20
[2018-09-06] MEDS: ACCU-CHEK XX SCH (02:19)
[2018-09-06] MEDS: INSULIN ASPART [NOVOLOG] 3 ML PEN SC SCH ×4 (07:53→21:53)
[2018-09-06] MEDS ORDERED: INSULIN GLARGINE [LANTus] (100 UNITS/ML) SYG SC SCH (08:00)
[2018-09-06] MEDS: AMLODIPINE 5 MG TAB PO SCH (09:01)
[2018-09-06] MEDS: HEPARIN 5,000 UNIT/1 ML VIAL SC SCH ×2 (09:04→21:53)
--- NOTE | 2018-09-06 09:41 | PN ---
DATE: 09/06/2018 SUBJECTIVE: The patient is stable, no events overnight. OBJECTIVE: VITAL SIGNS: Blood pressure is 133/74, pulse 68, respirations 16, temperature 98.3. HEENT: Head is normocephalic. NECK: Supple. HEART: Regular rate. LUNGS: Show diminished breath sounds at the base. ABDOMEN: Soft, nontender to palpation without rebound or guarding. EXTREMITIES: Negative for clubbing, cyanosis, no edema. DERMATOLOGIC: No rashes. MUSCULOSKELETAL: No joint effusion. NEUROLOGIC: No change in exam. MEDICATIONS: The patient's medications have been reviewed. LABORATORY DATA: Reviewed. IMAGING STUDIES: Reviewed. ASSESSMENT AND PLAN: 1. Nonoliguric acute kidney injury on top of chronic kidney disease with unknown baseline creatinine . Etiology of acute kidney injury is secondary to hemodynamics. Renal function is overall stable. Continue current treatment plan, supportive care, renally dose all medications. 2. Mineral bone disorder. Monitor calcium and phosphorus levels. 3. Hypertension. Continue current blood pressure regimen. 4. Acute cerebrovascular accident. The patient's repeat CT scan showed evidence of subacute left fr ontal lobe stroke. Continue to monitor. Continue medical management. Follow up with neurology. 5. History of old cerebrovascular accident. Continue medical management. 6. Diabetes. Continue current insulin regimen. 7. Benign prostatic hypertrophy. Continue Flomax. 8. History of congestive heart failure. 9. History of coronary artery disease. Dictated By: BROOKS HER DO NR/NTS Conf#: [id number] DID#: [id number] CC: LEBRON GARCIA MD; HASMUKH KWAN MD; BROOKS HER DO;*EndCC*
--- NOTE | 2018-09-06 11:07 | CONS ---
Assessment/Plan Assessment/Plan Assessment/Plan (Recall) 58 M c/ report of prior stroke w/ ? residual R sided weakness (? L MCA) and other comorbidities... who presents for evaluation of new aphasia. Serial Head CTs confirmed a new Left frontal infarction.. LDL 148; A1C 8.1% RPR neg; UDS neg TTE was notable for severe, global LV systolic dysfunction. MRI brain was contraindicated 2/2 pacemaker. CTA is presently limited by acute renal failure.. P: CUS to evaluate for significant L ICA stenosis Agree w/ asa daily for secondary stroke prevention for now Continue Lipitor 80 hs for the same.. Other risk factor modification and other medical management per primary PT/OT/ST as necessary Will follow clinically Consultation Date/Type/Reason Admit Date/Time Sep 04, 2018 at 02:03 Type of Consult Neurology Reason for Consultation aphasia Requesting Provider: LEBRON GARCIA Date/Time of Note DATE: 09/06/18 TIME: 11:04 24 HR Interval Summary Free Text/Dictation s/p repeat head CT Exam/Review of Systems Exam Vitals Vital Signs Date Temp Pulse Resp B/P (MAP) Pulse Ox O2 O2 Flow FiO2 Time Delivery Rate 09/06/18 98.3 68 16 133/74 94 07:12 (93) 09/05/18 Room Air 04:00 Intake and Output 09/05/18 09/05/18 09/06/18 1515:00 23:00 07:00 IntakeIntake Total 250 ml 350 ml 40 ml OutputOutput Total 400 ml BalanceBalance 250 ml 350 ml -360 ml Results Result Diagram: 09/06/18 0507 09/06/18 0507 Results 24hrs Laboratory Tests Test 09/05/18 12:03 09/05/18 17:06 09/05/18 20:40 09/06/18 02:12 Bedside Glucose 164 239 H 276 H 277 H Test 09/06/18 05:07 09/06/18 07:45 White Blood Count 9.3 Red Blood Count 4.31 L Hemoglobin 12.4 L Hematocrit 36.1 L Mean Corpuscular Volume 83.8 Mean Corpuscular 28.8 L Hemoglobin Mean Corpuscular 34.3 Hemoglobin Concent Red Cell Distribution 12.6 Width Platelet Count 263 Mean Platelet Volume 10.3 Immature Granulocytes % 0.300 Neutrophils % 67.1 Lymphocytes % 22.5 Monocytes % 6.8 Eosinophils % 2.9 Basophils % 0.4 Nucleated Red Blood 0.0 Cells % Immature Granulocytes # 0.030 Neutrophils # 6.2 Lymphocytes # 2.1 Monocytes # 0.6 Eosinophils # 0.3 Basophils # 0.0 Nucleated Red Blood 0.0 Cells # Sodium Level 139 Potassium Level 3.8 Chloride Level 106 Carbon Dioxide Level 25 Anion Gap 8 Blood Urea Nitrogen 20 Creatinine 1.59 H Est Glomerular Filtrat 45 L Rate mL/min Glucose Level 274 H Calcium Level 8.7 Phosphorus Level 3.6 Magnesium Level 1.9 Bedside Glucose 236 H Medications Medication Current Medications IV Flush (NS 3 ml) 3 ml PER PROTOCOL IV ; Start 09/04/18 at 02:30 Acetaminophen (Tylenol Supp) 650 mg Q6H PRN [place] .PAIN 1-3 OR TEMP; Start 09/04/18 at 02:30 Hydralazine HCl (Apresoline) 10 mg Q4H PRN IV ELEVATED BLOOD PRESSURE; Start 09/04/18 at 02:30 Amlodipine Besylate (Norvasc) 5 mg DAILY PO Last administered on 09/06/18at 09:01; Admin Dose 5 MG; Start 09/04/18 at 14:00 Atorvastatin Calcium (Lipitor) 80 mg HS PO Last administered on 09/05/18at 20:48; Admin Dose 80 MG; Start 09/04/18 at 21:00 Diagnostic Test (Pha) (Accu-Chek) 1 ea 02 XX Last administered on 09/06/18at 02:19; Admin Dose 1 EA; Start 09/05/18 at 02:00 Insulin Aspart (Novolog Insulin Pen) NOVOLOG *MILD* ALGORITHM WITH MEALS BEDTIME SC Last administered on 09/06/18at 07:53; Admin Dose 3 UNIT; Start 09/04/18 at 21:30 Miscellaneous Information 1 ea NOTE XX ; Start 09/04/18 at 21:00 Glucose (Glutose) 15 gm Q15M PRN PO DECREASED GLUCOSE; Start 09/04/18 at 21:00 Glucose (Glutose) 22.5 gm Q15M PRN PO DECREASED GLUCOSE; Start 09/04/18 at 21:00 Dextrose (D50w Syringe) 25 ml Q15M PRN IV DECREASED GLUCOSE; Start 09/04/18 at 21:00 Dextrose (D50w Syringe) 50 ml Q15M PRN IV DECREASED GLUCOSE; Start 09/04/18 at 21:00 Glucagon (Glucagen) 1 mg Q15M PRN IM DECREASED GLUCOSE; Start 09/04/18 at 21:00 Glucose (Glutose) 15 gm Q15M PRN BUCCAL DECREASED GLUCOSE; Start 09/04/18 at 21:00 Insulin Glargine (Lantus) 13 units DAILY@0800 SC Last administered on 09/06/18at 07:53; Admin Dose 13 UNITS; Start 09/06/18 at 08:00 Heparin Sodium (Porcine) (Heparin (5000 Units/1ml)) 5,000 unit BID SC Last administered on 09/06/18at 09:04; Admin Dose 5,000 UNIT; Start 09/05/18 at 21:00 ALLYN CARTWRIGHT Sep 06, 2018 11:07
--- NOTE | 2018-09-06 12:24 | PN ---
Date/Time of Note Date/Time of Note DATE: 09/06/18 TIME: 12:20 Assessment/Plan VTE Prophylaxis Risk score (from Ns)>0 risk: 4 SCD applied (from [facility] [place]): Yes Pharmacological prophylaxis: heparin Lines/Catheters IV Catheter Type (from [facility]): [place] Assessment/Plan Hospital Course Assessment and plan 1. Suspect Acute CVA. -Patient with noted with right-sided weakness and left-sided facial droop with aphasia. - Neurologist following. - Continue with antiplatelet therapy as well as statin medication. - MRI of the brain could not be obtained due to pacemaker. - 1st CT scan of the brain with with no acute intracranial abnormality. - 2nd CT scan of brain: Subacute left frontal lobe stroke, anterior cerebral artery territory. - Continue with PT/OT/ST 2. BRIDGETTE. - Continue with IV hydration. - monitor renal panel. - Substitute Bus Driver following. 3. History of CVA in the past. - Patient reportedly has history of CVA x3. - There is reported baseline of weakness on the right side. - PT following 4. Diabetes. - Continue insulin regimen. - will adjust for better glucose control 5. history of CAD. - Resume cardiovascular medications. Disposition plan. Insulin regimen adjusted. Follow-up with case management and family for decision for ARU, fdc facility, or home with [facility]. Continue supportive care for now. Discussed POC with Dr. Damon Result Diagram: 09/06/18 0507 09/06/18 0507 Results 24hrs Laboratory Tests Test 09/05/18 17:06 09/05/18 20:40 09/06/18 02:12 09/06/18 05:07 Bedside Glucose 239 H 276 H 277 H White Blood Count 9.3 Red Blood Count 4.31 L Hemoglobin 12.4 L Hematocrit 36.1 L Mean Corpuscular Volume 83.8 Mean Corpuscular 28.8 L Hemoglobin Mean Corpuscular 34.3 Hemoglobin Concent Red Cell Distribution 12.6 Width Platelet Count 263 Mean Platelet Volume 10.3 Immature Granulocytes % 0.300 Neutrophils % 67.1 Lymphocytes % 22.5 Monocytes % 6.8 Eosinophils % 2.9 Basophils % 0.4 Nucleated Red Blood 0.0 Cells % Immature Granulocytes # 0.030 Neutrophils # 6.2 Lymphocytes # 2.1 Monocytes # 0.6 Eosinophils # 0.3 Basophils # 0.0 Nucleated Red Blood 0.0 Cells # Sodium Level 139 Potassium Level 3.8 Chloride Level 106 Carbon Dioxide Level 25 Anion Gap 8 Blood Urea Nitrogen 20 Creatinine 1.59 H Est Glomerular Filtrat 45 L Rate mL/min Glucose Level 274 H Calcium Level 8.7 Phosphorus Level 3.6 Magnesium Level 1.9 Test 09/06/18 07:45 09/06/18 11:56 Bedside Glucose 236 H 247 H Subjective 24 Hr Interval Summary Free Text/Dictation aphasic, family at bedside. still with right sided weakness Exam/Review of Systems Exam Vitals Vital Signs Date Temp Pulse Resp B/P (MAP) Pulse Ox O2 O2 Flow FiO2 Time Delivery Rate 09/06/18 98.0 18 132/77 97 11:46 (95) 09/06/18 68 07:12 09/05/18 Room Air 04:00 Intake and Output 09/05/18 09/05/18 09/06/18 1515:00 23:00 07:00 IntakeIntake Total 250 ml 350 ml 40 ml OutputOutput Total 400 ml BalanceBalance 250 ml 350 ml -360 ml Exam Constitutional: alert Respiratory: clear to auscultation Cardiovascular: regular rate and rhythm Gastrointestinal: soft, non-tender Musculoskeletal: muscle weakness (right side) Neurological: No MARBLE SUPERVISOR II-XII intact, No nl speech Skin: No ecchymosis Results Results 24hrs Laboratory Tests Test 09/05/18 17:06 09/05/18 20:40 09/06/18 02:12 09/06/18 05:07 Bedside Glucose 239 H 276 H 277 H White Blood Count 9.3 Red Blood Count 4.31 L Hemoglobin 12.4 L Hematocrit 36.1 L Mean Corpuscular Volume 83.8 Mean Corpuscular 28.8 L Hemoglobin Mean Corpuscular 34.3 Hemoglobin Concent Red Cell Distribution 12.6 Width Platelet Count 263 Mean Platelet Volume 10.3 Immature Granulocytes % 0.300 Neutrophils % 67.1 Lymphocytes % 22.5 Monocytes % 6.8 Eosinophils % 2.9 Basophils % 0.4 Nucleated Red Blood 0.0 Cells % Immature Granulocytes # 0.030 Neutrophils # 6.2 Lymphocytes # 2.1 Monocytes # 0.6 Eosinophils # 0.3 Basophils # 0.0 Nucleated Red Blood 0.0 Cells # Sodium Level 139 Potassium Level 3.8 Chloride Level 106 Carbon Dioxide Level 25 Anion Gap 8 Blood Urea Nitrogen 20 Creatinine 1.59 H Est Glomerular Filtrat 45 L Rate mL/min Glucose Level 274 H Calcium Level 8.7 Phosphorus Level 3.6 Magnesium Level 1.9 Test 09/06/18 07:45 09/06/18 11:56 Bedside Glucose 236 H 247 H Medications Medication Current Medications IV Flush (NS 3 ml) 3 ml PER PROTOCOL IV ; Start 09/04/18 at 02:30 Acetaminophen (Tylenol Supp) 650 mg Q6H PRN [place] .PAIN 1-3 OR TEMP; Start 09/04/18 at 02:30 Hydralazine HCl (Apresoline) 10 mg Q4H PRN IV ELEVATED BLOOD PRESSURE; Start 09/04/18 at 02:30 Amlodipine Besylate (Norvasc) 5 mg DAILY PO Last administered on 09/06/18at 09:01; Admin Dose 5 MG; Start 09/04/18 at 14:00 Atorvastatin Calcium (Lipitor) 80 mg HS PO Last administered on 09/05/18at 20:48; Admin Dose 80 MG; Start 09/04/18 at 21:00 Diagnostic Test (Pha) (Accu-Chek) 1 ea 02 XX Last administered on 09/06/18at 02:19; Admin Dose 1 EA; Start 09/05/18 at 02:00 Insulin Aspart (Novolog Insulin Pen) NOVOLOG *MILD* ALGORITHM WITH MEALS BEDTIME SC Last administered on 09/06/18at 07:53; Admin Dose 3 UNIT; Start 09/04/18 at 21:30 Miscellaneous Information 1 ea NOTE XX ; Start 09/04/18 at 21:00 Glucose (Glutose) 15 gm Q15M PRN PO DECREASED GLUCOSE; Start 09/04/18 at 21:00 Glucose (Glutose) 22.5 gm Q15M PRN PO DECREASED GLUCOSE; Start 09/04/18 at 21:00 Dextrose (D50w Syringe) 25 ml Q15M PRN IV DECREASED GLUCOSE; Start 09/04/18 at 21:00 Dextrose (D50w Syringe) 50 ml Q15M PRN IV DECREASED GLUCOSE; Start 09/04/18 at 21:00 Glucagon (Glucagen) 1 mg Q15M PRN IM DECREASED GLUCOSE; Start 09/04/18 at 21:00 Glucose (Glutose) 15 gm Q15M PRN BUCCAL DECREASED GLUCOSE; Start 09/04/18 at 21:00 Heparin Sodium (Porcine) (Heparin (5000 Units/1ml)) 5,000 unit BID SC Last administered on 09/06/18at 09:04; Admin Dose 5,000 UNIT; Start 09/05/18 at 21:00 Insulin Glargine (Lantus) 20 units DAILY@0800 SC ; Start 09/07/18 at 08:00 EDGAR KING NP Sep 06, 2018 12:24
[2018-09-06] MEDS: ATORVASTATIN 80 MG TAB PO SCH (21:40)
[2018-09-07 00:21] VITALS: BP 150/67; PULSE 68; RESP 20
[2018-09-07] MEDS: ACCU-CHEK XX SCH (02:06)
[2018-09-07 04:16] VITALS: BP 149/83; PULSE 70; RESP 20
[2018-09-07] MEDS: AMLODIPINE 5 MG TAB PO SCH (07:54)
[2018-09-07 08:01] VITALS: BP 157/74; PULSE 73; RESP 20
[2018-09-07] MEDS: INSULIN GLARGINE [LANTus] (100 UNITS/ML) SYG SC SCH (08:13)
[2018-09-07] MEDS: INSULIN ASPART [NOVOLOG] 3 ML PEN SC SCH ×4 (08:13→20:36)
[2018-09-07] MEDS: HEPARIN 5,000 UNIT/1 ML VIAL SC SCH ×2 (08:13→20:36)
--- NOTE | 2018-09-07 08:39 | PN ---
DATE: 09/07/2018 SUBJECTIVE: The patient is stable, no events overnight. OBJECTIVE: VITAL SIGNS: Blood pressure 157/74, pulse 73, respirations 20, temperature 98.4. HEENT: Head is normocephalic. NECK: Supple. HEART: Regular rate. LUNGS: Show diminished breath sounds at the base. ABDOMEN: Soft, nontender to palpation without rebound or guarding. EXTREMITIES: Negative for clubbing, cyanosis, no edema. DERMATOLOGIC: No rashes. MUSCULOSKELETAL: No joint effusion. NEUROLOGIC: No change in exam. MEDICATIONS: The patient's medications have been reviewed. LABORATORY DATA: Has been reviewed. IMAGING STUDIES: Have been reviewed. ASSESSMENT AND PLAN: 1. Nonoliguric acute kidney injury on top of chronic kidney disease with unknown baseline creatinine . Etiology of BRIDGETTE is likely secondary to hemodynamics. The patient's renal function appears to be s tabilizing between a creatinine 1.4 to 1.6 mg/dL. At this point, continue current treatment plan, mcdermott pportive care, renally dose all meds. 2. Anemia. Monitor hemoglobin and hematocrit levels. 3. Mineral bone disorder, monitor calcium and phosphorus levels. 4. Hypertension. Continue current blood pressure regimen. 5. Acute cerebrovascular accident. Patient's repeat CT scan shows evidence of subacute left frontal lobe stroke. Continue to monitor. Medical management. Follow up with neurology. 6. Diabetes. Continue current insulin regimen. 7. Benign prostatic hypertrophy. Continue Flomax. 8. History of congestive heart failure. 9. History of coronary artery disease. Dictated By: BROOKS SAMS/LORENA Conf#: [id number] DID#: [id number]
--- NOTE | 2018-09-07 10:22 | CONS ---
Assessment/Plan Assessment/Plan Assessment/Plan (Recall) 58 M c/ report of prior stroke w/ ? residual R sided weakness (? L MCA) and other comorbidities... who presents for evaluation of new aphasia. Serial Head CTs confirmed a new Left frontal infarction.. LDL 148; A1C 8.1% RPR neg; UDS neg TTE was notable for severe, global LV systolic dysfunction. CUS is notable for moderate ICA stenoses bilaterally MRI brain was contraindicated 2/2 pacemaker. CTA is presently limited by acute renal failure.. P: CTA Neck to further characterize L ICA stenosis, when renal function allows.. Agree w/ asa daily for secondary stroke prevention for now Continue Lipitor 80 hs for the same.. Other risk factor modification and other medical management per primary PT/OT/ST as necessary Will follow clinically Consultation Date/Type/Reason Admit Date/Time Sep 04, 2018 at 02:03 Type of Consult Neurology Reason for Consultation aphasia Requesting Provider: LEBRON GARCIA Date/Time of Note DATE: 09/07/18 TIME: 10:21 24 HR Interval Summary Free Text/Dictation s/p CUS Exam/Review of Systems Exam Vitals Vital Signs Date Temp Pulse Resp B/P (MAP) Pulse Ox O2 O2 Flow FiO2 Time Delivery Rate 09/07/18 98.4 73 20 157/74 94 Room Air 08:01 (101) Intake and Output 09/06/18 09/06/18 09/07/18 1515:00 23:00 07:00 IntakeIntake Total 300 ml 50 ml OutputOutput Total 350 ml 1200 ml BalanceBalance -50 ml -1150 ml Results Result Diagram: 09/07/1818 09/07/1818 Results 24hrs Laboratory Tests Test 09/06/18 11:56 09/06/18 17:14 09/06/18 21:39 09/07/18 02:02 Bedside Glucose 247 H 234 H 239 H 183 Test 09/07/18 05:18 09/07/18 07:51 White Blood Count 9.1 Red Blood Count 4.59 L Hemoglobin 13.0 L Hematocrit 38.2 L Mean Corpuscular Volume 83.2 Mean Corpuscular 28.3 L Hemoglobin Mean Corpuscular 34.0 Hemoglobin Concent Red Cell Distribution 12.8 Width Platelet Count 273 Mean Platelet Volume 10.2 Immature Granulocytes % 0.300 Neutrophils % 62.6 Lymphocytes % 26.3 Monocytes % 6.8 Eosinophils % 3.2 Basophils % 0.8 Nucleated Red Blood 0.0 Cells % Immature Granulocytes # 0.030 Neutrophils # 5.7 Lymphocytes # 2.4 Monocytes # 0.6 Eosinophils # 0.3 Basophils # 0.1 Nucleated Red Blood 0.0 Cells # Sodium Level 140 Potassium Level 3.7 Chloride Level 107 Carbon Dioxide Level 27 Anion Gap 6 Blood Urea Nitrogen 20 Creatinine 1.48 H Est Glomerular Filtrat 48 L Rate mL/min Glucose Level 216 Calcium Level 8.5 Bedside Glucose 176 Medications Medication Current Medications IV Flush (NS 3 ml) 3 ml PER PROTOCOL IV ; Start 09/04/18 at 02:30 Acetaminophen (Tylenol Supp) 650 mg Q6H PRN [place] .PAIN 1-3 OR TEMP; Start 09/04/18 at 02:30 Hydralazine HCl (Apresoline) 10 mg Q4H PRN IV ELEVATED BLOOD PRESSURE; Start 09/04/18 at 02:30 Amlodipine Besylate (Norvasc) 5 mg DAILY PO Last administered on 09/07/18at 07:54; Admin Dose 5 MG; Start 09/04/18 at 14:00 Atorvastatin Calcium (Lipitor) 80 mg HS PO Last administered on 09/06/18at 21:40; Admin Dose 80 MG; Start 09/04/18 at 21:00 Diagnostic Test (Pha) (Accu-Chek) 1 ea 02 XX Last administered on 09/07/18at 02:06; Admin Dose 1 EA; Start 09/05/18 at 02:00 Insulin Aspart (Novolog Insulin Pen) NOVOLOG *MILD* ALGORITHM WITH MEALS BEDTIME SC Last administered on 09/07/18at 08:13; Admin Dose 1 UNIT; Start 09/04/18 at 21:30 Miscellaneous Information 1 ea NOTE XX ; Start 09/04/18 at 21:00 Glucose (Glutose) 15 gm Q15M PRN PO DECREASED GLUCOSE; Start 09/04/18 at 21:00 Glucose (Glutose) 22.5 gm Q15M PRN PO DECREASED GLUCOSE; Start 09/04/18 at 21:00 Dextrose (D50w Syringe) 25 ml Q15M PRN IV DECREASED GLUCOSE; Start 09/04/18 at 21:00 Dextrose (D50w Syringe) 50 ml Q15M PRN IV DECREASED GLUCOSE; Start 09/04/18 at 21:00 Glucagon (Glucagen) 1 mg Q15M PRN IM DECREASED GLUCOSE; Start 09/04/18 at 21:00 Glucose (Glutose) 15 gm Q15M PRN BUCCAL DECREASED GLUCOSE; Start 09/04/18 at 21:00 Heparin Sodium (Porcine) (Heparin (5000 Units/1ml)) 5,000 unit BID SC Last administered on 09/07/18at 08:13; Admin Dose 5,000 UNIT; Start 09/05/18 at 21:00 Insulin Glargine (Lantus) 20 units DAILY@0800 SC Last administered on 09/07/18at 08:13; Admin Dose 20 UNITS; Start 09/07/18 at 08:00 ALLYN CARTWRIGHT Sep 07, 2018 10:22
[2018-09-07 11:20] VITALS: BP 147/73; PULSE 71; RESP 20
--- NOTE | 2018-09-07 13:53 | PN ---
Date/Time of Note Date/Time of Note DATE: 09/07/18 TIME: 13:48 Assessment/Plan VTE Prophylaxis Risk score (from Ns)>0 risk: 5 SCD applied ([place] [facility] [place] Yes Pharmacological prophylaxis: heparin Lines/Catheters IV [facility] Type (from [facility] Saline Lock Assessment/Plan Hospital Course Assessment and plan 1. Suspect Acute CVA. -Patient with noted with right-sided weakness and left-sided facial droop with aphasia. - Neurologist following. - Continue with antiplatelet therapy as well as statin medication. - MRI of the brain could not be obtained due to pacemaker. - 1st CT scan of the brain with with no acute intracranial abnormality. - 2nd CT scan of brain: Subacute left frontal lobe stroke, anterior cerebral artery territory. - Continue with PT/OT/ST - Carotid doppler: Increased velocities in the bilateral ICAs, suspicious for at least 50-69% stenosis. - Plan for CTA 2. BRIDGETTE. - monitor renal panel. - Receptionist [facility] following. 3. History of CVA in the past. - Patient reportedly has history of CVA x3. - There is reported baseline of weakness on the right side. - PT following 4. Diabetes. - Continue insulin regimen. - will adjust for better glucose control 5. history of CAD. - Resume cardiovascular medications. Disposition plan. f/u CTA neck. continue supportive care. Awaiting ARU eval Discussed POC with Dr. Damon Result Diagram: 09/07/18 0518 09/07/18 0518 Results 24hrs Laboratory Tests Test 09/06/18 17:14 09/06/18 21:39 09/07/18 02:02 09/07/18 05:18 Bedside Glucose 234 H 239 H 183 White Blood Count 9.1 Red Blood Count 4.59 L Hemoglobin 13.0 L Hematocrit 38.2 L Mean Corpuscular Volume 83.2 Mean Corpuscular 28.3 L Hemoglobin Mean Corpuscular 34.0 Hemoglobin Concent Red Cell Distribution 12.8 Width Platelet Count 273 Mean Platelet Volume 10.2 Immature Granulocytes % 0.300 Neutrophils % 62.6 Lymphocytes % 26.3 Monocytes % 6.8 Eosinophils % 3.2 Basophils % 0.8 Nucleated Red Blood 0.0 Cells % Immature Granulocytes # 0.030 Neutrophils # 5.7 Lymphocytes # 2.4 Monocytes # 0.6 Eosinophils # 0.3 Basophils # 0.1 Nucleated Red Blood 0.0 Cells # Sodium Level 140 Potassium Level 3.7 Chloride Level 107 Carbon Dioxide Level 27 Anion Gap 6 Blood Urea Nitrogen 20 Creatinine 1.48 H Est Glomerular Filtrat 48 L Rate mL/min Glucose Level 216 Calcium Level 8.5 Test 09/07/18 07:51 09/07/18 11:40 09/07/18 12:58 Bedside Glucose 176 254 H 256 H Subjective 24 Hr Interval Summary Free Text/Dictation was able to tell me his name during interview. Still with right sided weakness Exam/Review of Systems Exam Vitals Vital Signs Date Temp Pulse Resp B/P (MAP) Pulse Ox O2 O2 Flow FiO2 Time Delivery Rate 09/07/18 98.6 71 20 147/73 93 Room Air 11:20 (97) Intake and Output 09/06/18 09/06/18 09/07/18 1515:00 23:00 07:00 IntakeIntake Total 300 ml 50 ml OutputOutput Total 350 ml 1200 ml BalanceBalance -50 ml -1150 ml Exam Constitutional: alert Respiratory: clear to auscultation Cardiovascular: regular rate and rhythm Gastrointestinal: soft, non-tender Musculoskeletal: muscle weakness (right side) Neurological: No AUDIT CONTROL CLERK II-XII intact, No nl speech Skin: No ecchymosis Results Results 24hrs Laboratory Tests Test 09/06/18 17:14 09/06/18 21:39 09/07/18 02:02 09/07/18 05:18 Bedside Glucose 234 H 239 H 183 White Blood Count 9.1 Red Blood Count 4.59 L Hemoglobin 13.0 L Hematocrit 38.2 L Mean Corpuscular Volume 83.2 Mean Corpuscular 28.3 L Hemoglobin Mean Corpuscular 34.0 Hemoglobin Concent Red Cell Distribution 12.8 Width Platelet Count 273 Mean Platelet Volume 10.2 Immature Granulocytes % 0.300 Neutrophils % 62.6 Lymphocytes % 26.3 Monocytes % 6.8 Eosinophils % 3.2 Basophils % 0.8 Nucleated Red Blood 0.0 Cells % Immature Granulocytes # 0.030 Neutrophils # 5.7 Lymphocytes # 2.4 Monocytes # 0.6 Eosinophils # 0.3 Basophils # 0.1 Nucleated Red Blood 0.0 Cells # Sodium Level 140 Potassium Level 3.7 Chloride Level 107 Carbon Dioxide Level 27 Anion Gap 6 Blood Urea Nitrogen 20 Creatinine 1.48 H Est Glomerular Filtrat 48 L Rate mL/min Glucose Level 216 Calcium Level 8.5 Test 09/07/18 07:51 09/07/18 11:40 09/07/18 12:58 Bedside Glucose 176 254 H 256 H Medications Medication Current Medications IV Flush (NS 3 ml) 3 ml PER PROTOCOL IV ; Start 09/04/18 at 02:30 Acetaminophen (Tylenol Supp) 650 mg Q6H PRN [place] .PAIN 1-3 OR TEMP; Start 09/04/18 at 02:30 Hydralazine HCl (Apresoline) 10 mg Q4H PRN IV ELEVATED BLOOD PRESSURE; Start 09/04/18 at 02:30 Amlodipine Besylate (Norvasc) 5 mg DAILY PO Last administered on 09/07/18at 07:54; Admin Dose 5 MG; Start 09/04/18 at 14:00 Atorvastatin Calcium (Lipitor) 80 mg HS PO Last administered on 09/06/18at 21:40; Admin Dose 80 MG; Start 09/04/18 at 21:00 Diagnostic Test (Pha) (Accu-Chek) 1 ea 02 XX Last administered on 09/07/18at 02:06; Admin Dose 1 EA; Start 09/05/18 at 02:00 Insulin Aspart (Novolog Insulin Pen) NOVOLOG *MILD* ALGORITHM WITH MEALS BEDTIME SC Last administered on 09/07/18at 11:47; Admin Dose 3 UNIT; Start 09/04/18 at 21:30 Miscellaneous Information 1 ea NOTE XX ; Start 09/04/18 at 21:00 Glucose (Glutose) 15 gm Q15M PRN PO DECREASED GLUCOSE; Start 09/04/18 at 21:00 Glucose (Glutose) 22.5 gm Q15M PRN PO DECREASED GLUCOSE; Start 09/04/18 at 21:00 Dextrose (D50w Syringe) 25 ml Q15M PRN IV DECREASED GLUCOSE; Start 09/04/18 at 21:00 Dextrose (D50w Syringe) 50 ml Q15M PRN IV DECREASED GLUCOSE; Start 09/04/18 at 21:00 Glucagon (Glucagen) 1 mg Q15M PRN IM DECREASED GLUCOSE; Start 09/04/18 at 21:00 Glucose (Glutose) 15 gm Q15M PRN BUCCAL DECREASED GLUCOSE; Start 09/04/18 at 21:00 Heparin Sodium (Porcine) (Heparin (5000 Units/1ml)) 5,000 unit BID SC Last administered on 09/07/18at 08:13; Admin Dose 5,000 UNIT; Start 09/05/18 at 21:00 Insulin Glargine (Lantus) 20 units DAILY@0800 SC Last administered on 09/07/18at 08:13; Admin Dose 20 UNITS; Start 09/07/18 at 08:00 EDGAR KING NP Sep 07, 2018 13:53
[2018-09-07 15:34] VITALS: BP 161/77; PULSE 76; RESP 22
[2018-09-07 20:00] VITALS: BP 165/79; RESP 18
[2018-09-07] MEDS: ATORVASTATIN 80 MG TAB PO SCH (20:24)
[2018-09-08 00:50] VITALS: BP 142/85; PULSE 80; RESP 18
[2018-09-08] MEDS: ACCU-CHEK XX SCH (01:59)
[2018-09-08 04:31] VITALS: BP 163/80; PULSE 76; RESP 18
[2018-09-08 07:37] VITALS: BP 148/74; PULSE 71; RESP 24
[2018-09-08] MEDS: INSULIN ASPART [NOVOLOG] 3 ML PEN SC SCH ×4 (08:10→21:00)
[2018-09-08] MEDS: INSULIN GLARGINE [LANTus] (100 UNITS/ML) SYG SC SCH (08:13)
--- NOTE | 2018-09-08 08:44 | PN ---
DATE: 09/08/2018 SUBJECTIVE: The patient is stable, no events overnight. OBJECTIVE: VITAL SIGNS: Blood pressure is 148/74, pulse 71, respirations 24, temperature 98.2. HEENT: Head is normocephalic. NECK: Supple. HEART: Regular rate. LUNGS: Show diminished breath sounds at the base. ABDOMEN: Soft, nontender to palpation without rebound or guarding. EXTREMITIES: Negative for clubbing, cyanosis. No edema. DERMATOLOGIC: No rashes. MUSCULOSKELETAL: No joint effusion. NEUROLOGIC: No change in exam. MEDICATIONS: The patient's medication have been reviewed. LABORATORY DATA: Has been reviewed. ASSESSMENT AND PLAN: 1. Nonoliguric acute kidney injury on top of chronic kidney disease with unknown baseline creatinine . Etiology of acute kidney injury is secondary to hemodynamics. The patient's renal function appear s to be stabilizing between a creatinine of 1.4 to 1.6 mg/dL. At this point, continue current treatm ent plans, supportive care, renally dose all medication. 2. Anemia. Monitor hemoglobin and hematocrit levels. 3. Mineral bone disorder, monitor calcium and phosphorus levels. 4. Hypertension. Continue current blood pressure regimen. 5. Possible acute cerebrovascular accident. The patient's CT scan has been reviewed. Continue [facility] [place] management. Follow up with neurology. 6. Diabetes. Continue current insulin regimen. 7. Benign prostatic hypertrophy. Continue Flomax. 8. History of congestive heart failure. 9. History of coronary artery disease. 10. Carotid artery stenosis. The patient will eventually require CT angiogram for definitive evalua tion. Please note that patient does have risk for contrast-associated nephropathy. We will continue to monitor. If the patient is to proceed with angiogram, would recommend a course of IV hydration a nd starting Mucomyst. Dictated By: BROOKS HER DO NR/NTS Conf#: [id number] DID#: [id number] CC: HASMUKH KWAN MD; LEBRON GARCIA MD;*EndCC*
[2018-09-08] MEDS: HEPARIN 5,000 UNIT/1 ML VIAL SC SCH ×2 (09:36→21:25)
[2018-09-08] MEDS: AMLODIPINE 5 MG TAB PO SCH (09:45)
[2018-09-08 11:23] VITALS: BP 139/71; PULSE 73; RESP 20
--- NOTE | 2018-09-08 13:49 | PN ---
Date/Time of Note Date/Time of Note DATE: 09/08/18 TIME: 13:46 Assessment/Plan VTE Prophylaxis Risk score (from Ns)>0 risk: 4 SCD applied (from [facility] [place]): Yes Pharmacological prophylaxis: heparin Lines/Catheters IV Catheter Type (from [facility] Saline Lock Assessment/Plan Hospital Course Assessment and plan 1. Suspect Acute CVA. -Patient with noted with right-sided weakness and left-sided facial droop with aphasia. - Neurologist following. - Continue with antiplatelet therapy as well as statin medication. - MRI of the brain could not be obtained due to pacemaker. - 1st CT scan of the brain with with no acute intracranial abnormality. - 2nd CT scan of brain: Subacute left frontal lobe stroke, anterior cerebral artery territory. - Continue with PT/OT/ST - Carotid doppler: Increased velocities in the bilateral ICAs, suspicious for at least 50-69% stenosis. - Awaiting ARU eval 2. BRIDGETTE. - monitor renal panel. - Windows Application Developer following. 3. History of CVA in the past. - Patient reportedly has history of CVA x3. - There is reported baseline of weakness on the right side. - PT following 4. Diabetes. - Continue insulin regimen. - will adjust for better glucose control 5. history of CAD. - Resume cardiovascular medications. Disposition plan. continue current tx. Pending ARU vs. snf placement. Will follow up Discussed POC with Dr. Damon Result Diagram: 09/08/1851509/08/18 0516 Results 24hrs Laboratory Tests Test 09/07/18 16:48 09/07/18 20:26 09/08/18 01:52 09/08/18 05:16 Bedside Glucose 200 266 H 158 White Blood Count 9.7 Red Blood Count 4.54 L Hemoglobin 12.9 L Hematocrit 38.2 L Mean Corpuscular Volume 84.1 Mean Corpuscular 28.4 L Hemoglobin Mean Corpuscular 33.8 Hemoglobin Concent Red Cell Distribution 12.7 Width Platelet Count 284 Mean Platelet Volume 10.2 Immature Granulocytes % 0.200 Neutrophils % 62.1 Lymphocytes % 27.8 Monocytes % 5.9 Eosinophils % 3.4 Basophils % 0.6 Nucleated Red Blood 0.0 Cells % Immature Granulocytes # 0.020 Neutrophils # 6.0 Lymphocytes # 2.7 Monocytes # 0.6 Eosinophils # 0.3 Basophils # 0.1 Nucleated Red Blood 0.0 Cells # Sodium Level 140 Potassium Level 3.7 Chloride Level 106 Carbon Dioxide Level 27 Anion Gap 7 Blood Urea Nitrogen 20 Creatinine 1.44 H Est Glomerular Filtrat 50 L Rate mL/min Glucose Level 177 Calcium Level 8.6 Test 09/08/18 08:02 09/08/18 12:18 Bedside Glucose 175 186 Subjective 24 Hr Interval Summary Free Text/Dictation patient able to follow simple commands, appears to have more strength on ride side of body. Exam/Review of Systems Exam Vitals Vital Signs Date Temp Pulse Resp B/P (MAP) Pulse Ox O2 O2 Flow FiO2 Time Delivery Rate 09/08/18 97.9 73 20 139/71 96 Room Air 11:23 (93) Intake and Output 09/07/18 09/07/18 09/08/18 1515:00 23:00 07:00 IntakeIntake Total 240 ml 240 ml OutputOutput Total 850 ml 35 ml BalanceBalance 240 ml -610 ml -35 ml Exam Constitutional: alert Respiratory: clear to auscultation Cardiovascular: regular rate and rhythm Gastrointestinal: soft, non-tender Musculoskeletal: muscle weakness (right side) Neurological: No EVENT PROMOTER II-XII intact, No nl speech Skin: No ecchymosis Results Results 24hrs Laboratory Tests Test 09/07/18 16:48 09/07/18 20:26 09/08/18 01:52 09/08/18 05:16 Bedside Glucose 200 266 H 158 White Blood Count 9.7 Red Blood Count 4.54 L Hemoglobin 12.9 L Hematocrit 38.2 L Mean Corpuscular Volume 84.1 Mean Corpuscular 28.4 L Hemoglobin Mean Corpuscular 33.8 Hemoglobin Concent Red Cell Distribution 12.7 Width Platelet Count 284 Mean Platelet Volume 10.2 Immature Granulocytes % 0.200 Neutrophils % 62.1 Lymphocytes % 27.8 Monocytes % 5.9 Eosinophils % 3.4 Basophils % 0.6 Nucleated Red Blood 0.0 Cells % Immature Granulocytes # 0.020 Neutrophils # 6.0 Lymphocytes # 2.7 Monocytes # 0.6 Eosinophils # 0.3 Basophils # 0.1 Nucleated Red Blood 0.0 Cells # Sodium Level 140 Potassium Level 3.7 Chloride Level 106 Carbon Dioxide Level 27 Anion Gap 7 Blood Urea Nitrogen 20 Creatinine 1.44 H Est Glomerular Filtrat 50 L Rate mL/min Glucose Level 177 Calcium Level 8.6 Test 09/08/18 08:02 09/08/18 12:18 Bedside Glucose 175 186 Medications Medication Current Medications IV Flush (NS 3 ml) 3 ml PER PROTOCOL IV ; Start 09/04/18 at 02:30 Acetaminophen (Tylenol Supp) 650 mg Q6H PRN [place] .PAIN 1-3 OR TEMP; Start 09/04/18 at 02:30 Hydralazine HCl (Apresoline) 10 mg Q4H PRN IV ELEVATED BLOOD PRESSURE; Start 09/04/18 at 02:30 Amlodipine Besylate (Norvasc) 5 mg DAILY PO Last administered on 09/08/18at 09:45; Admin Dose 5 MG; Start 09/04/18 at 14:00 Atorvastatin Calcium (Lipitor) 80 mg HS PO Last administered on 09/07/18at 20:24; Admin Dose 80 MG; Start 09/04/18 at 21:00 Diagnostic Test (Pha) (Accu-Chek) 1 ea 02 XX Last administered on 09/08/18at 01:59; Admin Dose 1 EA; Start 09/05/18 at 02:00 Insulin Aspart (Novolog Insulin Pen) NOVOLOG *MILD* ALGORITHM WITH MEALS BEDTIME SC Last administered on 09/08/18at 12:22; Admin Dose 2 UNIT; Start 09/04/18 at 21:30 Miscellaneous Information 1 ea NOTE XX ; Start 09/04/18 at 21:00 Glucose (Glutose) 15 gm Q15M PRN PO DECREASED GLUCOSE; Start 09/04/18 at 21:00 Glucose (Glutose) 22.5 gm Q15M PRN PO DECREASED GLUCOSE; Start 09/04/18 at 21:00 Dextrose (D50w Syringe) 25 ml Q15M PRN IV DECREASED GLUCOSE; Start 09/04/18 at 21:00 Dextrose (D50w Syringe) 50 ml Q15M PRN IV DECREASED GLUCOSE; Start 09/04/18 at 21:00 Glucagon (Glucagen) 1 mg Q15M PRN IM DECREASED GLUCOSE; Start 09/04/18 at 21:00 Glucose (Glutose) 15 gm Q15M PRN BUCCAL DECREASED GLUCOSE; Start 09/04/18 at 21:00 Heparin Sodium (Porcine) (Heparin (5000 Units/1ml)) 5,000 unit BID SC Last administered on 09/08/18at 09:36; Admin Dose 5,000 UNIT; Start 09/05/18 at 21:00 Insulin Glargine (Lantus) 20 units DAILY@0800 SC Last administered on 09/08/18at 08:13; Admin Dose 20 UNITS; Start 09/07/18 at 08:00 Acetaminophen (Tylenol Tab) 650 mg Q6H PRN PO MILD PAIN(1-3)OR ELEVATED TEMP; Start 09/07/18 at 15:00 EDGAR KING NP Sep 08, 2018 13:49
[2018-09-08 15:55] VITALS: BP 137/66; PULSE 75; RESP 20
--- NOTE | 2018-09-08 18:06 | CONS ---
Assessment/Plan Assessment/Plan Assessment/Plan (Recall) 58 M c/ report of prior stroke w/ ? residual R sided weakness (? L MCA) and other comorbidities... who presents for evaluation of new aphasia. Serial Head CTs confirmed a new Left frontal infarction.. LDL 148; A1C 8.1% RPR neg; UDS neg TTE was notable for severe, global LV systolic dysfunction. CUS is notable for moderate ICA stenoses bilaterally MRI brain was contraindicated 2/2 pacemaker. CTA is presently limited by acute renal failure.. P: CTA Neck to further characterize L ICA stenosis, when renal function allows.. Agree w/ asa daily for secondary stroke prevention for now Continue Lipitor 80 hs for the same.. Other risk factor modification and other medical management per primary PT/OT/ST as necessary Will follow clinically Consultation Date/Type/Reason Admit Date/Time Sep 04, 2018 at 02:03 Type of Consult Neurology Reason for Consultation aphasia Requesting Provider: LEBRON GARCIA Date/Time of Note DATE: 09/08/18 TIME: 18:05 24 HR Interval Summary Free Text/Dictation Continues acute care Exam/Review of Systems Exam Vitals Vital Signs Date Temp Pulse Resp B/P (MAP) Pulse Ox O2 O2 Flow FiO2 Time Delivery Rate 09/08/18 98.2 75 20 137/66 95 Room Air 15:55 (89) Intake and Output 09/07/18 09/07/18 09/08/18 1515:00 23:00 07:00 IntakeIntake Total 240 ml 240 ml OutputOutput Total 850 ml 35 ml BalanceBalance 240 ml -610 ml -35 ml Results Result Diagram: 09/08/18 0516 09/08/18 0516 Results 24hrs Laboratory Tests Test 09/07/18 20:26 09/08/18 01:52 09/08/18 05:16 09/08/18 08:02 Bedside Glucose 266 H 158 175 White Blood Count 9.7 Red Blood Count 4.54 L Hemoglobin 12.9 L Hematocrit 38.2 L Mean Corpuscular Volume 84.1 Mean Corpuscular 28.4 L Hemoglobin Mean Corpuscular 33.8 Hemoglobin Concent Red Cell Distribution 12.7 Width Platelet Count 284 Mean Platelet Volume 10.2 Immature Granulocytes % 0.200 Neutrophils % 62.1 Lymphocytes % 27.8 Monocytes % 5.9 Eosinophils % 3.4 Basophils % 0.6 Nucleated Red Blood 0.0 Cells % Immature Granulocytes # 0.020 Neutrophils # 6.0 Lymphocytes # 2.7 Monocytes # 0.6 Eosinophils # 0.3 Basophils # 0.1 Nucleated Red Blood 0.0 Cells # Sodium Level 140 Potassium Level 3.7 Chloride Level 106 Carbon Dioxide Level 27 Anion Gap 7 Blood Urea Nitrogen 20 Creatinine 1.44 H Est Glomerular Filtrat 50 L Rate mL/min Glucose Level 177 Calcium Level 8.6 Test 09/08/18 12:18 Bedside Glucose 186 Medications Medication Current Medications IV Flush (NS 3 ml) 3 ml PER PROTOCOL IV ; Start 09/04/18 at 02:30 Acetaminophen (Tylenol Supp) 650 mg Q6H PRN [place] .PAIN 1-3 OR TEMP; Start 09/04/18 at 02:30 Hydralazine HCl (Apresoline) 10 mg Q4H PRN IV ELEVATED BLOOD PRESSURE; Start 09/04/18 at 02:30 Amlodipine Besylate (Norvasc) 5 mg DAILY PO Last administered on 09/08/18at 09:45; Admin Dose 5 MG; Start 09/04/18 at 14:00 Atorvastatin Calcium (Lipitor) 80 mg HS PO Last administered on 09/07/18at 20:24; Admin Dose 80 MG; Start 09/04/18 at 21:00 Diagnostic Test (Pha) (Accu-Chek) 1 ea 02 XX Last administered on 09/08/18at 01:59; Admin Dose 1 EA; Start 09/05/18 at 02:00 Insulin Aspart (Novolog Insulin Pen) NOVOLOG *MILD* ALGORITHM WITH MEALS BE DTIME SC Last administered on 09/08/18at 12:22; Admin Dose 2 UNIT; Start 09/04/18 at 21:30 Miscellaneous Information 1 ea NOTE XX ; Start 09/04/18 at 21:00 Glucose (Glutose) 15 gm Q15M PRN PO DECREASED GLUCOSE; Start 09/04/18 at 21:00 Glucose (Glutose) 22.5 gm Q15M PRN PO DECREASED GLUCOSE; Start 09/04/18 at 21:00 Dextrose (D50w Syringe) 25 ml Q15M PRN IV DECREASED GLUCOSE; Start 09/04/18 at 21:00 Dextrose (D50w Syringe) 50 ml Q15M PRN IV DECREASED GLUCOSE; Start 7/1/19 at 21:00 Glucagon (Glucagen) 1 mg Q15M PRN IM DECREASED GLUCOSE; Start 09/04/18 at 21:00 Glucose (Glutose) 15 gm Q15M PRN BUCCAL DECREASED GLUCOSE; Start 09/04/18 at 21:00 Heparin Sodium (Porcine) (Heparin (5000 Units/1ml)) 5,000 unit BID SC Last administered on 09/08/18at 09:36; Admin Dose 5,000 UNIT; Start 09/05/18 at 21:00 Insulin Glargine (Lantus) 20 units DAILY@0800 SC Last administered on 09/08/18at 08:13; Admin Dose 20 UNITS; Start 09/07/18 at 08:00 Acetaminophen (Tylenol Tab) 650 mg Q6H PRN PO MILD PAIN(1-3)OR ELEVATED TEMP; Start 09/07/18 at 15:00 ALLYN CARTWRIGHT Sep 08, 2018 18:06
[2018-09-08 20:00] VITALS: BP 169/83; PULSE 77; RESP 20
[2018-09-08] MEDS: ATORVASTATIN 80 MG TAB PO SCH (21:18)
[2018-09-09 01:13] VITALS: BP 130/78; RESP 20
[2018-09-09] MEDS: ACCU-CHEK XX SCH (02:00)
[2018-09-09 04:00] VITALS: BP 129/72; PULSE 63; RESP 20
[2018-09-09 07:49] VITALS: BP 130/74; PULSE 77; RESP 16
[2018-09-09] MEDS: INSULIN ASPART [NOVOLOG] 3 ML PEN SC SCH ×4 (07:49→21:06)
[2018-09-09] MEDS: INSULIN GLARGINE [LANTus] (100 UNITS/ML) SYG SC SCH (07:53)
[2018-09-09] MEDS: AMLODIPINE 5 MG TAB PO SCH (08:36)
[2018-09-09] MEDS: HEPARIN 5,000 UNIT/1 ML VIAL SC SCH ×2 (08:48→21:07)
--- NOTE | 2018-09-09 08:49 | PN ---
DATE: 09/09/2018 SUBJECTIVE: The patient is stable. No events overnight. OBJECTIVE: VITAL SIGNS: Blood pressure is 130/74, pulse 77, respirations 16, temperature 98.3. HEENT: Head is normocephalic. NECK: Supple. HEART: Regular rate. LUNGS: Show diminished breath sounds at the base. ABDOMEN: Soft, nontender to palpation without rebound or guarding. EXTREMITIES: Negative for clubbing, cyanosis, no edema. DERMATOLOGIC: No rashes. MUSCULOSKELETAL: No joint effusion. NEUROLOGIC: No change in exam. MEDICATIONS: Reviewed. LABORATORY DATA: Has been reviewed. ASSESSMENT AND PLAN: 1. Nonoliguric acute kidney injury on top of chronic kidney disease with unknown baseline creatinine . Etiology of acute kidney injury is secondary to hemodynamics. The patient's renal function appear s to be stabilizing around creatinine of 1.4 to 1.6 mg/dL. At this point, continue current treatment plan, supportive care, renally dose all meds. 2. Anemia. Monitor hemoglobin and hematocrit levels. 3. Mineral bone disorder. Monitor calcium and phosphorus levels. 4. Hypertension. Continue current blood pressure regimen. 5. Possible cerebrovascular accident. Continue current medical management. Follow up with neurolog y. 6. Diabetes. Continue current insulin regimen. 7. Benign prostatic hypertrophy. Continue Flomax. 8. Carotid artery stenosis. The patient will require possible CT angio for definitive evaluation. The patient is at moderate risk for contrast-associated nephropathy. If CT angio is to be ordered, w ould start the patient on IV hydration and Mucomyst one day prior. 9. History of congestive heart failure. 10. History of coronary artery disease. Dictated By: BROOKS SAMS/LORENA Conf#: [id number] DID#: [id number] CC: LEBRON GARCIA MD;*EndCC*
[2018-09-09 11:19] VITALS: BP 153/79; PULSE 80; RESP 18
--- NOTE | 2018-09-09 14:30 | PN ---
Date/Time of Note Date/Time of Note DATE: 09/09/18 TIME: 14:29 Assessment/Plan VTE Prophylaxis Risk score (from Ns)>0 risk: 5 SCD applied (from Ns): Yes Pharmacological prophylaxis: heparin Lines/Catheters IV Catheter Type (from [facility] Saline Lock Assessment/Plan Hospital Course Assessment and plan 1. Suspect Acute CVA. -Patient with noted with right-sided weakness and left-sided facial droop with aphasia. - Neurologist following. - Continue with antiplatelet therapy as well as statin medication. - MRI of the brain could not be obtained due to pacemaker. - 1st CT scan of the brain with with no acute intracranial abnormality. - 2nd CT scan of brain: Subacute left frontal lobe stroke, anterior cerebral artery territory. - Continue with PT/OT/ST - Carotid doppler: Increased velocities in the bilateral ICAs, suspicious for at least 50-69% stenosis. - Awaiting ARU eval 2. BRIDGETTE. - monitor renal panel. - [employer] following. 3. History of CVA in the past. - Patient reportedly has history of CVA x3. - There is reported baseline of weakness on the right side. - PT following 4. Diabetes. - Continue insulin regimen. - will adjust for better glucose control 5. history of CAD. - Resume cardiovascular medications. Disposition plan. continue current tx. Pending ARU eval. continue PT services Discussed POC with Dr. Damon Result Diagram: 09/08/18 0516 09/08/18 0516 Results 24hrs Laboratory Tests Test 09/08/18 18:33 09/08/18 21:17 09/09/18 07:49 09/09/18 11:27 Bedside Glucose 116 137 121 201 Subjective 24 Hr Interval Summary Free Text/Dictation able to communicate name. Still with noted movement on right side of body. 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, No nl speech Skin: No ecchymosis Results Results 24hrs Laboratory Tests Test 09/08/18 18:33 09/08/18 21:17 09/09/18 07:49 09/09/18 11:27 Bedside Glucose 116 137 121 201 Medications Medication Current Medications IV Flush (NS 3 ml) 3 ml PER PROTOCOL IV ; Start 09/04/18 at 02:30 Acetaminophen (Tylenol Supp) 650 mg Q6H PRN [place] .PAIN 1-3 OR TEMP; Start 09/04/18 at 02:30 Hydralazine HCl (Apresoline) 10 mg Q4H PRN IV ELEVATED BLOOD PRESSURE; Start 09/04/18 at 02:30 Amlodipine Besylate (Norvasc) 5 mg DAILY PO Last administered on 09/09/18at 08:36; Admin Dose 5 MG; Start 09/04/18 at 14:00 Atorvastatin Calcium (Lipitor) 80 mg HS PO Last administered on 09/08/18at 21:18; Admin Dose 80 MG; Start 09/04/18 at 21:00 Diagnostic Test (Pha) (Accu-Chek) 1 ea 02 XX Last administered on 09/08/18at 01:59; Admin Dose 1 EA; Start 09/05/18 at 02:00 Insulin Aspart (Novolog Insulin Pen) NOVOLOG *MILD* ALGORITHM WITH MEALS BEDTIME SC Last administered on 09/09/18at 11:33; Admin Dose 2 UNIT; Start 09/04/18 at 21:30 Miscellaneous Information 1 ea NOTE XX ; Start 09/04/18 at 21:00 Glucose (Glutose) 15 gm Q15M PRN PO DECREASED GLUCOSE; Start 09/04/18 at 21:00 Glucose (Glutose) 22.5 gm Q15M PRN PO DECREASED GLUCOSE; Start 09/04/18 at 21:00 Dextrose (D50w Syringe) 25 ml Q15M PRN IV DECREASED GLUCOSE; Start 09/04/18 at 21:00 Dextrose (D50w Syringe) 50 ml Q15M PRN IV DECREASED GLUCOSE; Start 09/04/18 at 21:00 Glucagon (Glucagen) 1 mg Q15M PRN IM DECREASED GLUCOSE; Start 09/04/18 at 21:00 Glucose (Glutose) 15 gm Q15M PRN BUCCAL DECREASED GLUCOSE; Start 09/04/18 at 21:00 Heparin Sodium (Porcine) (Heparin (5000 Units/1ml)) 5,000 unit BID SC Last administered on 09/09/18at 08:48; Admin Dose 5,000 UNIT; Start 09/05/18 at 21:00 Insulin Glargine (Lantus) 20 units DAILY@0800 SC Last administered on 09/09/18at 07:53; Admin Dose 20 UNITS; Start 09/07/18 at 08:00 Acetaminophen (Tylenol Tab) 650 mg Q6H PRN PO MILD PAIN(1-3)OR ELEVATED TEMP; Start 09/07/18 at 15:00 EDGAR KING NP Sep 09, 2018 14:30
[2018-09-09 15:01] VITALS: BP 121/73; PULSE 77; RESP 16
[2018-09-09 20:00] VITALS: BP 170/81; PULSE 79; RESP 20
[2018-09-09] MEDS: ATORVASTATIN 80 MG TAB PO SCH (21:07)
[2018-09-10] VITALS (7 sets, daily range): BP systolic 110–175; BP diastolic 65–79; PULSE 69–131; RESP 20–22
[2018-09-10] MEDS: ACCU-CHEK XX SCH (02:16)
--- NOTE | 2018-09-10 08:13 | CONS ---
Assessment/Plan Assessment/Plan Assessment/Plan (Recall) 58 M c/ report of prior stroke w/ ? residual R sided weakness (? L MCA) and other comorbidities... who presents for evaluation of new aphasia. Serial Head CTs confirmed a new Left frontal infarction.. LDL 148; A1C 8.1% RPR neg; UDS neg TTE was notable for severe, global LV systolic dysfunction. CUS is notable for moderate ICA stenoses bilaterally MRI brain was contraindicated 2/2 pacemaker. CTA is presently limited by acute renal failure.. P: CTA Neck to further characterize L ICA stenosis, when renal function allows.. Agree w/ asa daily for secondary stroke prevention for now Continue Lipitor 80 hs for the same.. Other risk factor modification and other medical management per primary PT/OT/ST as necessary Will follow clinically Consultation Date/Type/Reason Admit Date/Time Sep 04, 2018 at 02:03 Type of Consult Neurology Reason for Consultation aphasia Requesting Provider: LEBRON GARCIA Date/Time of Note DATE: 09/10/18 TIME: 08:13 24 HR Interval Summary Free Text/Dictation Continues acute care Exam/Review of Systems Exam Vitals Vital Signs Date Temp Pulse Resp B/P (MAP) Pulse Ox O2 O2 Flow FiO2 Time Delivery Rate 09/10/18 98.0 70 22 150/68 96 08:00 (95) 09/09/18 Room Air 04:00 Intake and Output 09/09/18 09/09/18 09/10/18 1515:00 23:00 07:00 IntakeIntake Total 650 ml 50 ml OutputOutput Total 950 ml 800 ml BalanceBalance -300 ml -750 ml Results Result Diagram: 09/08/18 0516 09/08/18 0516 Results 24hrs Laboratory Tests Test 09/09/18 11:27 09/09/18 17:20 09/10/18 02:10 09/10/18 07:37 Bedside Glucose 201 149 136 145 Medications Medication Current Medications IV Flush (NS 3 ml) 3 ml PER PROTOCOL IV ; Start 09/04/18 at 02:30 Acetaminophen (Tylenol Supp) 650 mg Q6H PRN [place] .PAIN 1-3 OR TEMP; Start 09/04/18 at 02:30 Hydralazine HCl (Apresoline) 10 mg Q4H PRN IV ELEVATED BLOOD PRESSURE; Start 09/04/18 at 02:30 Amlodipine Besylate (Norvasc) 5 mg DAILY PO Last administered on 09/09/18 08:36; Admin Dose 5 MG; Start 09/04/18 at 14:00 Atorvastatin Calcium (Lipitor) 80 mg HS PO Last administered on 09/09/18 21:07; Admin Dose 80 MG; Start 09/04/18 at 21:00 Diagnostic Test (Pha) (Accu-Chek) 1 ea 02 XX Last administered on 09/10/18 02:16; Admin Dose 1 EA; Start 09/05/18 at 02:00 Insulin Aspart (Novolog Insulin Pen) NOVOLOG *MILD* ALGORITHM WITH MEALS BEDTIME SC Last administered on 09/09/18 21:06; Admin Dose 2 UNIT; Start 09/04/18 at 21:30 Miscellaneous Information 1 ea NOTE XX ; Start 09/04/18 at 21:00 Glucose (Glutose) 15 gm Q15M PRN PO DECREASED GLUCOSE; Start 09/04/18 at 21:00 Glucose (Glutose) 22.5 gm Q15M PRN PO DECREASED GLUCOSE; Start 09/04/18 at 21:00 Dextrose (D50w Syringe) 25 ml Q15M PRN IV DECREASED GLUCOSE; Start 09/04/18 at 21:00 Dextrose (D50w Syringe) 50 ml Q15M PRN IV DECREASED GLUCOSE; Start 09/04/18 at 21:00 Glucagon (Glucagen) 1 mg Q15M PRN IM DECREASED GLUCOSE; Start 09/04/18 at 21:00 Glucose (Glutose) 15 gm Q15M PRN BUCCAL DECREASED GLUCOSE; Start 09/04/18 at 21: 00 Heparin Sodium (Porcine) (Heparin (5000 Units/1ml)) 5,000 unit BID SC Last administered on 09/09/18at 21:07; Admin Dose 5,000 UNIT; Start 09/05/18 at 21:00 Insulin Glargine (Lantus) 20 units DAILY@0800 SC Last administered on 09/09/18 07:53; Admin Dose 20 UNITS; Start 09/07/18 at 08:00 Acetaminophen (Tylenol Tab) 650 mg Q6H PRN PO MILD PAIN(1-3)OR ELEVATED TEMP; Start 09/07/18 at 15:00 ALLYN CARTWRIGHT Sep 10, 2018 08:13
--- NOTE | 2018-09-10 08:29 | PN ---
DATE: 09/10/2018 SUBJECTIVE: The patient is stable. No events overnight. OBJECTIVE: VITAL SIGNS: Blood pressure is 138/65, respirations 20, pulse 69, temperature 98.2. HEENT: Head is normocephalic. NECK: Supple. HEART: Regular rate. LUNGS: Show diminished breath sounds at the base. ABDOMEN: Soft, nontender to palpation without rebound or guarding. EXTREMITIES: Negative for clubbing, cyanosis, no edema. DERMATOLOGIC: No rashes. MUSCULOSKELETAL: No joint effusion. NEUROLOGIC: No change in exam. MEDICATIONS: The patient's medications have been reviewed. LABORATORY DATA: Reviewed. IMAGING STUDIES: Reviewed. ASSESSMENT AND PLAN: 1. Nonoliguric acute kidney injury on top of chronic kidney disease with unknown baseline creatinine . Etiology of BRIDGETTE is secondary to hemodynamics. Renal function stabilized with creatinine 1.4 to 1. 6 mg/dL. At this point, continue current treatment plans, supportive care, renally dose all medicati ons. 2. Anemia. Monitor hemoglobin and hematocrit levels. 3. Mineral bone disorder, monitor calcium and phosphorus level. 4. Hypertension. Continue current blood pressure regimen. 5. Possible cerebrovascular accident. Continue medical management. Follow up with neurology. 6. Diabetes. Continue current insulin regimen. 7. Benign prostatic hypertrophy. Continue Flomax. 8. Carotid artery stenosis. The patient may require CT angio for a definitive evaluation. Please n ote the patient is at moderate risk for contrast-associated nephropathy. If a CT angio is to be orde red, would start the patient on IV hydration and Mucomyst 1 day prior. 9. History of CHF. 10. History of coronary artery disease. Dictated By: BROOKS HER DO NR/NTS Conf#: [id number] DID#: [id number] CC: HASMUKH KWAN MD; LEBRON GARCIA MD;*EndCC*
[2018-09-10] MEDS: AMLODIPINE 5 MG TAB PO SCH (09:21)
[2018-09-10] MEDS: INSULIN ASPART [NOVOLOG] 3 ML PEN SC SCH ×4 (09:42→20:34)
[2018-09-10] MEDS: INSULIN GLARGINE [LANTus] (100 UNITS/ML) SYG SC SCH (09:42)
[2018-09-10] MEDS: HEPARIN 5,000 UNIT/1 ML VIAL SC SCH ×2 (09:42→20:23)
--- NOTE | 2018-09-10 18:13 | PN ---
Date/Time of Note Date/Time of Note DATE: 09/10/18 TIME: 18:08 Assessment/Plan VTE Prophylaxis Risk score (from Ns)>0 risk: 3 SCD applied (from Ns): Yes Pharmacological prophylaxis: heparin Lines/Catheters IV [facility]from [facility] Saline Lock Assessment/Plan Hospital Course Assessment and plan 1. Suspect Acute CVA. -Patient with noted with right-sided weakness and left-sided facial droop with aphasia. - Neurologist following. - Continue with antiplatelet therapy as well as statin medication. - MRI of the brain could not be obtained due to pacemaker. - 1st CT scan of the brain with with no acute intracranial abnormality. - 2nd CT scan of brain: Subacute left frontal lobe stroke, anterior cerebral artery territory. - Continue with PT/OT/ST - Carotid doppler: Increased velocities in the bilateral ICAs, suspicious for at least 50-69% stenosis. - Awaiting ARU eval 2. BRIDGETTE. - monitor renal panel. - Base Filler following. 3. History of CVA in the past. - Patient reportedly has history of CVA x3. - There is reported baseline of weakness on the right side. - PT following 4. Diabetes. - Continue insulin regimen. - will adjust for better glucose control 5. history of CAD. - Resume cardiovascular medications. Disposition plan. continue current tx. Pending ARU eval. continue PT services. Check AM labs. continue current tx Discussed POC with Dr. Damon Result Diagram: 09/08/18 0516 09/08/18 0516 Results 24hrs Laboratory Tests Test 09/10/18 02:10 09/10/18 07:37 09/10/18 11:51 09/10/18 17:35 Bedside Glucose 136 145 155 199 Subjective 24 Hr Interval Summary Free Text/Dictation was seen with during visit. alert and able to follow commands. 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, No nl speech Skin: No ecchymosis Results Results 24hrs Laboratory Tests Test 09/10/18 02:10 09/10/18 07:37 09/10/18 11:51 09/10/18 17:35 Bedside Glucose 136 145 155 199 Medications Medication Current Medications IV Flush (NS 3 ml) 3 ml PER PROTOCOL IV ; Start 09/04/18 at 02:30 Acetaminophen (Tylenol Supp) 650 mg Q6H PRN [place] .PAIN 1-3 OR TEMP; Start 09/04/18 at 02:30 Hydralazine HCl (Apresoline) 10 mg Q4H PRN IV ELEVATED BLOOD PRESSURE; Start 09/04/18 at 02:30 Amlodipine Besylate (Norvasc) 5 mg DAILY PO Last administered on 09/10/18at 09:21; Admin Dose 5 MG; Start 09/04/18 at 14:00 Atorvastatin Calcium (Lipitor) 80 mg HS PO Last administered on 09/09/18at 21:07; Admin Dose 80 MG; Start 09/04/18 at 21:00 Diagnostic Test (Pha) (Accu-Chek) 1 ea 02 XX Last administered on 09/10/18at 02:16; Admin Dose 1 EA; Start 09/05/18 at 02:00 Insulin Aspart (Novolog Insulin Pen) NOVOLOG *MILD* ALGORITHM WITH MEALS BEDTIME SC Last administered on 09/10/18at 17:50; Admin Dose 2 UNIT; Start 09/04/18 at 21:30 Miscellaneous Information 1 ea NOTE XX ; Start 09/04/18 at 21:00 Glucose (Glutose) 15 gm Q15M PRN PO DECREASED GLUCOSE; Start 09/04/18 at 21:00 Glucose (Glutose) 22.5 gm Q15M PRN PO DECREASED GLUCOSE; Start 09/04/18 at 21:00 Dextrose (D50w Syringe) 25 ml Q15M PRN IV DECREASED GLUCOSE; Start 09/04/18 at 21:00 Dextrose (D50w Syringe) 50 ml Q15M PRN IV DECREASED GLUCOSE; Start 09/04/18 at 21:00 Glucagon (Glucagen) 1 mg Q15M PRN IM DECREASED GLUCOSE; Start 09/04/18 at 21:00 Glucose (Glutose) 15 gm Q15M PRN BUCCAL DECREASED GLUCOSE; Start 09/04/18 at 21:00 Heparin Sodium (Porcine) (Heparin (5000 Units/1ml)) 5,000 unit BID SC Last administered on 09/10/18at 09:42; Admin Dose 5,000 UNIT; Start 09/05/18 at 21:00 Insulin Glargine (Lantus) 20 units DAILY@0800 SC Last administered on 09/10/18at 09:42; Admin Dose 20 UNITS; Start 09/07/18 at 08:00 Acetaminophen (Tylenol Tab) 650 mg Q6H PRN PO MILD PAIN(1-3)OR ELEVATED TEMP; Start 09/07/18 at 15:00 EDGAR KING NP Sep 10, 2018 18:13
[2018-09-10] MEDS: ATORVASTATIN 80 MG TAB PO SCH (20:21)
[2018-09-11] VITALS: BP 150/74; PULSE 71; RESP 23
[2018-09-11] MEDS: ACCU-CHEK XX SCH (02:18)
[2018-09-11] MEDS: ACETAMINOPHEN 325 MG TAB PO PRN (02:22)
[2018-09-11 04:28] VITALS: BP 146/80; PULSE 73; RESP 20
[2018-09-11 07:11] VITALS: BP 140/70; PULSE 61
[2018-09-11] MEDS: INSULIN ASPART [NOVOLOG] 3 ML PEN SC SCH ×4 (07:52→21:00)
[2018-09-11] MEDS: INSULIN GLARGINE [LANTus] (100 UNITS/ML) SYG SC SCH (08:00)
[2018-09-11] MEDS: AMLODIPINE 5 MG TAB PO SCH (08:27)
--- NOTE | 2018-09-11 08:36 | PN ---
DATE: 09/11/2018 SUBJECTIVE: The patient is stable, no events overnight. OBJECTIVE: VITAL SIGNS: Blood pressure is 140/70, pulse 61, temperature 98.1. HEENT: Head is normocephalic. NECK: Supple. HEART: Regular rate. LUNGS: Show diminished breath sounds at the base. ABDOMEN: Soft, nontender to palpation without rebound or guarding. EXTREMITIES: Negative for clubbing, cyanosis, no edema. DERMATOLOGIC: No rashes. MUSCULOSKELETAL: No joint effusion. NEUROLOGIC: No change in exam. MEDICATIONS: Reviewed. LABORATORY DATA: Reviewed. ASSESSMENT AND PLAN: 1. Nonoliguric acute kidney injury on top of chronic kidney disease with unknown baseline creatinine . Etiology of acute kidney injury is secondary to hemodynamics. The patient's renal function is sta bilized between creatinine 1.4 to 1.6 mg/dL. At this point, continue current treatment plans, suppor tive care, renally dose all medications. 2. Anemia. Monitor hemoglobin and hematocrit levels. 3. Mineral bone disorder, monitor calcium and phosphorus levels. 4. Hypertension. Continue current blood pressure regimen. 5. Possible cerebrovascular accident. Continue medical management. 6. Diabetes. Continue current insulin regimen. 7. Benign prostatic hypertrophy. Continue Flomax. 8. Carotid artery stenosis. Continue to monitor. The patient may require CT angio. 9. History of congestive heart failure. 10. Coronary artery disease. Dictated By: BROOKS HER DO NR/NTS Conf#: [id number] DID#: [id number] CC: BROOKS HER DO; HASMUKH KWAN MD; LEBRON GARCIA MD;*[facility]*
[2018-09-11] MEDS: HEPARIN 5,000 UNIT/1 ML VIAL SC SCH ×2 (09:26→21:44)
--- NOTE | 2018-09-11 11:35 | CONS ---
Assessment/Plan Assessment/Plan Assessment/Plan (Recall) 58 M c/ report of prior stroke w/ ? residual R sided weakness (? L MCA) and other comorbidities... who presents for evaluation of new aphasia. Serial Head CTs confirmed a new Left frontal infarction.. LDL 148; A1C 8.1% RPR neg; UDS neg TTE was notable for severe, global LV systolic dysfunction. CUS is notable for moderate ICA stenoses bilaterally MRI brain was contraindicated 2/2 pacemaker. CTA is presently limited by acute renal failure.. P: Agree w/ asa daily for secondary stroke prevention for now Continue Lipitor 80 hs for the same.. Other risk factor modification and other medical management per primary PT/OT/ST as necessary Will follow clinically Consultation Date/Type/Reason Admit Date/Time Sep 04, 2018 at 02:03 Type of Consult Neurology Reason for Consultation aphasia Requesting Provider: LEBRON GARCIA Date/Time of Note DATE: 09/11/18 TIME: 11:35 24 HR Interval Summary Free Text/Dictation Await ARU eval Exam/Review of Systems Exam Vitals Vital Signs Date Temp Pulse Resp B/P (MAP) Pulse Ox O2 O2 Flow FiO2 Time Delivery Rate 09/11/18 98.1 61 140/70 95 Room Air 07:11 (93) 09/11/18 20 04:28 09/10/18 3.0 16:28 Intake and Output 09/10/18 09/10/18 09/11/18 1515:00 23:00 07:00 IntakeIntake Total 530 ml 200 ml OutputOutput Total 720 ml 900 ml BalanceBalance -190 ml -700 ml Results Result Diagram: 09/08/18 0516 09/11/18 0520 Results 24hrs Laboratory Tests Test 09/10/18 11:51 09/10/18 17:35 09/10/18 20:27 09/11/18 02:13 Bedside Glucose 155 199 237 H 111 Test 09/11/18 05:20 09/11/18 07:35 Sodium Level 140 Potassium Level 4.0 Chloride Level 105 Carbon Dioxide Level 26 Anion Gap 9 Blood Urea Nitrogen 24 H Creatinine 1.62 H Est Glomerular Filtrat 44 L Rate mL/min Glucose Level 153 Calcium Level 8.8 Phosphorus Level 3.9 Magnesium Level 2.1 Bedside Glucose 131 Medications Medication Current Medications IV Flush (NS 3 ml) 3 ml PER PROTOCOL IV ; Start 7/1/19 at 02:30 Acetaminophen (Tylenol Supp) [address] .PAIN 1-3 OR TEMP; Start 09/04/18 at 02:30 Hydralazine HCl (Apresoline) 10 mg Q4H PRN IV ELEVATED BLOOD PRESSURE; Start 09/04/18 at 02:30 Amlodipine Besylate (Norvasc) 5 mg DAILY PO Last administered on 09/11/18at 08:27; Admin Dose 5 MG; Start 09/04/18 at 14:00 Atorvastatin Calcium (Lipitor) 80 mg HS PO Last administered on 09/10/18at 20:21; Admin Dose 80 MG; Start 09/04/18 at 21:00 Diagnostic Test (Pha) (Accu-Chek) 1 ea 02 XX Last administered on 09/11/18at 02:18; Admin Dose 1 EA; Start 09/05/18 at 02:00 Insulin Aspart (Novolog Insulin Pen) NOVOLOG *MILD* ALGORITHM WITH MEALS BEDTIME SC Last administered on 09/10/18at 20:34; Admin Dose 2 UNIT; Start 09/04/18 at 21:30 Miscellaneous Information 1 ea NOTE XX ; Start 09/04/18 at 21:00 Glucose (Glutose) 15 gm Q15M PRN PO DECREASED GLUCOSE; Start 09/04/18 at 21:00 Glucose (Glutose) 22.5 gm Q15M PRN PO DECREASED GLUCOSE; Start 09/04/18 at 21:00 Dextrose (D50w Syringe) 25 ml Q15M PRN IV DECREASED GLUCOSE; Start 09/04/18 at 21:00 Dextrose (D50w Syringe) 50 ml Q15M PRN IV DECREASED GLUCOSE; Start 09/04/18 at 21:00 Glucagon (Glucagen) 1 mg Q15M PRN IM DECREASED GLUCOSE; Start 09/04/18 at 21:00 Glucose (Glutose) 15 gm Q15M PRN BUCCAL DECREASED GLUCOSE; Start 09/04/18 at 21:00 Heparin Sodium (Porcine) (Heparin (5000 Units/1ml)) 5,000 unit BID SC Last administered on 09/11/18at 09:26; Admin Dose 5,000 UNIT; Start 09/05/18 at 21:00 Insulin Glargine (Lantus) 20 units DAILY@0800 SC Last administered on 09/11/18 08:00; Admin Dose 20 UNITS; Start 09/07/18 at 08:00 Acetaminophen (Tylenol Tab) 650 mg Q6H PRN PO MILD PAIN(1-3)OR ELEVATED TEMP Last administered on 09/11/18 02:22; Admin Dose 650 MG; Start 09/07/18 at 15:00 ALLYN CARTWRIGHT Sep 11, 2018 11:35
--- NOTE | 2018-09-11 14:26 | PN ---
Date/Time of Note Date/Time of Note DATE: 09/11/18 TIME: 14:25 Assessment/Plan VTE Prophylaxis Risk score (from Nsg)>0 risk: 1 SCD applied (from Nsg): Yes Pharmacological prophylaxis: heparin Lines/Catheters IV Catheter Type (from Nrsg): Saline Lock Urinary Cath still in place: Yes (condom cath in place) Reason Cath still needed: other (indicate) Assessment/Plan Hospital Course SUBJECTIVE: Denies any pain. OBJECTIVE: Physical Exam General: Adequately build 58 year-old male lying in bed in no apparent distress. HEENT: Normocephalic, atraumatic. Eyes: Anicteric sclerae, conjunctivae clear. ENT: Nasal septum midline, oral mucosa moist. Neck supple. Respiratory: Bilaterally diminished breath sounds. No use of accessory muscles of respiration. No adventitious breath sounds. Cardiovascular: S1, S2 heard. Regular rate and rhythm. Abdomen: Soft, nontender, and nondistended. Bowel sounds positive in all 4 quadrants. Genitourinary: Deferred. Extremities: No cyanosis, no clubbing, no edema. Peripheral pulses palpable. Neurologic: The patient is awake and alert. Expressive aphasia. Right hemiparesis. Skin: Normal skin turgor. No skin rashes. Labs & Vitals per chart ASSESSMENT & PLAN 58-year-old male with past medical history of hypertension, diabetes mellitus, stroke with right-sided paresis, cardiomyopathy with dual-chamber pacemaker, and dyslipidemia who was brought to the emergency room because of difficulty in spe aking, who was admitted to inpatient setting for further treatment and evaluation. 1. Subacute left frontal lobe stroke, anterior cerebral artery territory. Unable to obtain brain MRI because of underlying pacemaker. Continue aspirin and high-dose statins. Continue PT, OT, ST. 2. Cardiomyopathy. Ejection fraction of 25%. The patient has a dual-chamber pacemaker in place. Start the patient on beta-blockers. Initiate BILLIE inhibitors if renal function permits. 3. Acute on chronic kidney disease. Being followed by nephrology. Continue to monitor renal function closely. 4. Hypertension. Continue antihypertensives. 5. Diabetes mellitus. Hemoglobin A1c 8.1. Continue sliding scale insulin along with basal insulin. 6. Dyslipidemia. Continue statins. 7. Prostate hypertrophy. Continue Flomax. 8. Carotid artery disease. Doppler showing moderate soft plaque in the right common carotid artery with a 67% stenosis. Continue medical optimization. 9. Normocytic anemia. Monitor H&H closely. Most probably anemia chronic disease. 10. DVT prophylaxis. Subcutaneous heparin. 11. Fluids, electrolytes, and nutrition. Carbohydrate controlled diet. 12. Plan. Continue aspirin plus Plavix. Add beta-blockers. The patient needs [facility] facility upon discharge. Transfer to Med/Surg. Patient was seen in collaboration with Dr. Mcgarry. Result Diagram: 09/08/18 0516 09/11/18 0520 Results 24hrs Laboratory Tests Test 09/10/18 17:35 09/10/18 20:27 09/11/18 02:13 09/11/18 05:20 Bedside Glucose 199 237 H 111 Sodium Level 140 Potassium Level 4.0 Chloride Level 105 Carbon Dioxide Level 26 Anion Gap 9 Blood Urea Nitrogen 24 H Creatinine 1.62 H Est Glomerular Filtrat 44 L Rate mL/min Glucose Level 153 Calcium Level 8.8 Phosphorus Level 3.9 Magnesium Level 2.1 Test 09/11/18 07:35 09/11/18 11:50 Bedside Glucose 131 124 Exam/Review of Systems Exam Vitals Vital Signs Date Temp Pulse Resp B/P (MAP) Pulse Ox O2 O2 Flow FiO2 Time Delivery Rate 09/11/18 98.1 61 140/70 95 Room Air 07:11 (93) 09/11/18 20 04:28 09/10/18 3.0 16:28 Intake and Output 09/10/18 09/10/18 09/11/18 1515:00 23:00 07:00 IntakeIntake Total 530 ml 200 ml OutputOutput Total 720 ml 900 ml BalanceBalance -190 ml -700 ml Results Results 24hrs Laboratory Tests Test 09/10/18 17:35 09/10/18 20:27 09/11/18 02:13 09/11/18 05:20 Bedside Glucose 199 237 H 111 Sodium Level 140 Potassium Level 4.0 Chloride Level 105 Carbon Dioxide Level 26 Anion Gap 9 Blood Urea Nitrogen 24 H Creatinine 1.62 H Est Glomerular Filtrat 44 L Rate mL/min Glucose Level 153 Calcium Level 8.8 Phosphorus Level 3.9 Magnesium Level 2.1 Test 09/11/18 07:35 09/11/18 11:50 Bedside Glucose 131 124 Medications Medication Current Medications IV Flush (NS 3 ml) 3 ml PER PROTOCOL IV ; Start 09/04/18 at 02:30 Acetaminophen (Tylenol Supp) 650 mg Q6H PRN [place] .PAIN 1-3 OR TEMP; Start 09/04/18 at 02:30 Hydralazine HCl (Apresoline) 10 mg Q4H PRN IV ELEVATED BLOOD PRESSURE; Start 09/04/18 at 02:30 Amlodipine Besylate (Norvasc) 5 mg DAILY PO Last administered on 09/11/18 08:27; Admin Dose 5 MG; Start 09/04/18 at 14:00 Atorvastatin Calcium (Lipitor) 80 mg HS PO Last administered on 09/10/18at 20:21; Admin Dose 80 MG; Start 09/04/18 at 21:00 Diagnostic Test (Pha) (Accu-Chek) 1 ea 02 XX Last administered on 09/11/18 02:18; Admin Dose 1 EA; Start 09/05/18 at 02:00 Insulin Aspart (Novolog Insulin Pen) NOVOLOG *MILD* ALGORITHM WITH MEALS BEDTIME SC Last administered on 09/10/18at 20:34; Admin Dose 2 UNIT; Start 09/04/18 at 21:30 Miscellaneous Information 1 ea NOTE XX ; Start 09/04/18 at 21:00 Glucose (Glutose) 15 gm Q15M PRN PO DECREASED GLUCOSE; Start 09/04/18 at 21:00 Glucose (Glutose) 22.5 gm Q15M PRN PO DECREASED GLUCOSE; Start 09/04/18 at 21:00 Dextrose (D50w Syringe) 25 ml Q15M PRN IV DECREASED GLUCOSE; Start 09/04/18 at 21:00 Dextrose (D50w Syringe) 50 ml Q15M PRN IV DECREASED GLUCOSE; Start 09/04/18 at 21:00 Glucagon (Glucagen) 1 mg Q15M PRN IM DECREASED GLUCOSE; Start 09/04/18 at 21:00 Glucose (Glutose) 15 gm Q15M PRN BUCCAL DECREASED GLUCOSE; Start 09/04/18 at 21:00 Heparin Sodium (Porcine) (Heparin (5000 Units/1ml)) 5,000 unit BID SC Last administered on 09/11/18at 09:26; Admin Dose 5,000 UNIT; Start 09/05/18 at 21:00 Insulin Glargine (Lantus) 20 units DAILY@0800 SC Last administered on 09/11/18at 08:00; Admin Dose 20 UNITS; Start 09/07/18 at 08:00 Acetaminophen (Tylenol Tab) 650 mg Q6H PRN PO MILD PAIN(1-3)OR ELEVATED TEMP Last administered on 09/11/18at 02:22; Admin Dose 650 MG; Start 09/07/18 at 15:00 Aspirin (Halfprin) 81 mg DAILY PO ; Start 09/11/18 at 14:30 Carvedilol (Coreg) 3.125 mg BID PO ; Start 09/11/18 at 21:00 PACHECO WORTHY NP Sep 11, 2018 14:26
[2018-09-11] MEDS ORDERED: ASPIRIN (EC) 81 MG TAB PO SCH (14:30)
[2018-09-11 15:23] VITALS: BP 143/71; PULSE 69; RESP 18
[2018-09-11] MEDS ORDERED: BISACODYL (EC) 5 MG TAB PO PRN (16:00)
[2018-09-11 18:46] VITALS: BP 140/71; PULSE 73; RESP 19
[2018-09-11 20:10] VITALS: BP 134/68; PULSE 75; RESP 17
[2018-09-11] MEDS: ATORVASTATIN 80 MG TAB PO SCH (21:41)
[2018-09-11] MEDS: POLYETHYLENE GLYCOL 17 GM PACKET PO SCH (21:42)
[2018-09-12] MEDS: ACCU-CHEK XX SCH (02:00)
[2018-09-12 02:11] VITALS: BP 135/67; PULSE 64; RESP 20
--- NOTE | 2018-09-12 08:21 | PN ---
DATE: 09/12/2018 09/12/2018 SUBJECTIVE: The patient is stable. No events overnight. OBJECTIVE: VITAL SIGNS: Blood pressure is 135/67, respirations 20, pulse 64, temperature 98.4. HEENT: Head is normocephalic. NECK: Supple. HEART: Regular rate. LUNGS: Show diminished breath sounds at the base. ABDOMEN: Soft, nontender to palpation without rebound or guarding. EXTREMITIES: Negative for clubbing, cyanosis, no edema. DERMATOLOGIC: No rashes. MUSCULOSKELETAL: No joint effusions. NEUROLOGIC: No change in exam. MEDICATIONS: Reviewed. LABORATORY DATA: Has been reviewed. IMAGING STUDIES: Have been reviewed. ASSESSMENT AND PLAN: 1. Nonoliguric acute kidney injury on top of chronic kidney disease with unknown baseline creatinine . Etiology of acute kidney injury is secondary to hemodynamics. Renal function has stabilized. Con popue current treatment plans, supportive care, renally dose all meds. 2. Anemia. Monitor hemoglobin and hematocrit levels. 3. Mineral bone disorder. Monitor calcium and phosphorus levels. 4. Hypertension. Continue current blood pressure regimen. 5. Possible cerebrovascular accident. Continue medical management. 6. Diabetes. Continue current insulin regimen. 7. Benign prostatic hypertrophy. Continue Flomax. 8. Carotid artery stenosis. Continue to monitor. 9. History of congestive heart failure. 10. Coronary artery disease. Dictated By: BROOKS HER DO NR/NTS Conf#: [id number] DID#: [id number] CC: LEBRON GARCIA MD;*EndCC*
[2018-09-12 08:29] VITALS: BP 144/74; PULSE 75; RESP 19
[2018-09-12] MEDS ORDERED: ASPIRIN (EC) 81 MG TAB PO SCH (09:00)
[2018-09-12] MEDS: INSULIN ASPART [NOVOLOG] 3 ML PEN SC SCH ×4 (09:00→20:48)
[2018-09-12] MEDS: ASPIRIN 81 MG TAB PO SCH (09:08)
--- NOTE | 2018-09-12 09:08 | PN ---
Date/Time of Note Date/Time of Note DATE: 09/12/18 TIME: 09:07 Assessment/Plan VTE Prophylaxis Risk score (from Nsg)>0 risk: 3 SCD applied (from Nsg): Yes Pharmacological prophylaxis: heparin Lines/Catheters IV Catheter Type (from Nrsg): Saline Lock Urinary Cath still in place: Yes (condom cath) Reason Cath still needed: other (indicate) Assessment/Plan Hospital Course SUBJECTIVE: Denies any pain. OBJECTIVE: Physical Exam General: Adequately build 58 year-old male lying in bed in no apparent distress. HEENT: Normocephalic, atraumatic. Eyes: Anicteric sclerae, conjunctivae clear. ENT: Nasal septum midline, oral mucosa moist. Neck supple. Respiratory: Bilaterally diminished breath sounds. No use of accessory muscles of respiration. No adventitious breath sounds. Cardiovascular: S1, S2 heard. Regular rate and rhythm. Abdomen: Soft, nontender, and nondistended. Bowel sounds positive in all 4 quadrants. Genitourinary: Deferred. Extremities: No cyanosis, no clubbing, no edema. Peripheral pulses palpable. Neurologic: The patient is awake and alert. Expressive aphasia. Right hemiparesis. Skin: Normal skin turgor. No skin rashes. Labs & Vitals per chart ASSESSMENT & PLAN 58-year-old male with past medical history of hypertension, diabetes mellitus, stroke with right-sided paresis, cardiomyopathy with dual-chamber pacemaker, and dyslipidemia who was brought to the emergency room because of difficulty in speaking, who was admitted to inpatient setting for further treatment and evaluation. 1. Subacute left frontal lobe stroke, anterior cerebral artery territory. Unable to obtain brain MRI because of underlying pacemaker. Continue aspirin and high-dose statins. Continue PT, OT, ST. 2. Cardiomyopathy. Ejection fraction of 25%. The patient has a dual-chamber pacemaker in place. Continue the patient on beta-blockers. Initiate BILLIE inhibitors if renal function permits. 3. Acute on chronic kidney disease. Being followed by nephrology. Continue to monitor renal function closely. 4. Hypertension. Continue antihypertensives. 5. Diabetes mellitus. Hemoglobin A1c 8.1. Continue sliding scale insulin along with basal insulin. 6. Dyslipidemia. Continue statins. 7. Prostate hypertrophy. Continue Flomax. 8. Carotid artery disease. Doppler showing moderate soft plaque in the right common carotid artery with a 67% stenosis. Continue medical optimization. 9. Normocytic anemia. Monitor H&H closely. Most probably anemia chronic disease. 10. DVT prophylaxis. Subcutaneous heparin. 11. Fluids, electrolytes, and nutrition. Carbohydrate controlled diet. 12. Plan. Continue aspirin plus Plavix. The patient needs [facility] facility upon discharge. Patient was seen in collaboration with Dr. Mcgarry. Result Diagram: 09/12/18 0451 09/12/18 0451 Results 24hrs Laboratory Tests Test 09/11/18 11:50 09/11/18 17:05 09/11/18 21:55 09/12/18 04:51 Bedside Glucose 124 192 179 White Blood Count 9.5 Red Blood Count 4.58 L Hemoglobin 12.9 L Hematocrit 38.3 L Mean Corpuscular Volume 83.6 Mean Corpuscular 28.2 L Hemoglobin Mean Corpuscular 33.7 Hemoglobin Concent Red Cell Distribution 13.0 Width Platelet Count 323 Mean Platelet Volume 10.3 Immature Granulocytes % 0.300 Neutrophils % 61.6 Lymphocytes % 28.4 Monocytes % 6.9 Eosinophils % 2.3 Basophils % 0.5 Nucleated Red Blood 0.0 Cells % Immature Granulocytes # 0.030 Neutrophils # 5.9 Lymphocytes # 2.7 Monocytes # 0.7 Eosinophils # 0.2 Basophils # 0.1 Nucleated Red Blood 0.0 Cells # Sodium Level 139 Potassium Level 4.3 Chloride Level 106 Carbon Dioxide Level 27 Anion Gap 6 Blood Urea Nitrogen 25 H Creatinine 1.65 H Est Glomerular Filtrat 43 L Rate mL/min Glucose Level 130 Calcium Level 8.8 Phosphorus Level 3.9 Magnesium Level 2.1 Exam/Review of Systems Exam Vitals Vital Signs Date Temp Pulse Resp B/P (MAP) Pulse Ox O2 O2 Flow FiO2 Time Delivery Rate 09/12/18 98.4 64 20 135/67 95 02:11 (89) 09/11/18 Room Air 18:46 09/10/18 3.0 16:28 Intake and Output 09/11/18 09/11/18 09/12/18 1515:00 23:00 07:00 IntakeIntake Total 240 ml 100 ml OutputOutput Total 450 ml BalanceBalance 240 ml -350 ml Results Results 24hrs Laboratory Tests Test 09/11/18 11:50 09/11/18 17:05 09/11/18 21:55 09/12/18 04:51 Bedside Glucose 124 192 179 White Blood Count 9.5 Red Blood Count 4.58 L Hemoglobin 12.9 L Hematocrit 38.3 L Mean Corpuscular Volume 83.6 Mean Corpuscular 28.2 L Hemoglobin Mean Corpuscular 33.7 Hemoglobin Concent Red Cell Distribution 13.0 Width Platelet Count 323 Mean Platelet Volume 10.3 Immature Granulocytes % 0.300 Neutrophils % 61.6 Lymphocytes % 28.4 Monocytes % 6.9 Eosinophils % 2.3 Basophils % 0.5 Nucleated Red Blood 0.0 Cells % Immature Granulocytes # 0.030 Neutrophils # 5.9 Lymphocytes # 2.7 Monocytes # 0.7 Eosinophils # 0.2 Basophils # 0.1 Nucleated Red Blood 0.0 Cells # Sodium Level 139 Potassium Level 4.3 Chloride Level 106 Carbon Dioxide Level 27 Anion Gap 6 Blood Urea Nitrogen 25 H Creatinine 1.65 H Est Glomerular Filtrat 43 L Rate mL/min Glucose Level 130 Calcium Level 8.8 Phosphorus Level 3.9 Magnesium Level 2.1 Medications Medication Current Medications IV Flush (NS 3 ml) 3 ml PER PROTOCOL IV ; Start 09/04/18 at 02:30 Acetaminophen (Tylenol Supp) 650 mg Q6H PRN [place] .PAIN 1-3 OR TEMP; Start 09/04/18 at 02:30 Hydralazine HCl (Apresoline) 10 mg Q4H PRN IV ELEVATED BLOOD PRESSURE; Start 09/04/18 at 02:30 Amlodipine Besylate (Norvasc) 5 mg DAILY PO Last administered on 09/11/18at 08:27; Admin Dose 5 MG; Start 09/04/18 at 14:00 Atorvastatin Calcium (Lipitor) 80 mg HS PO Last administered on 09/11/18at 21:41; Admin Dose 80 MG; Start 09/04/18 at 21:00 Diagnostic Test (Pha) (Accu-Chek) 1 ea 02 XX Last administered on 09/11/18at 02:18; Admin Dose 1 EA; Start 09/05/18 at 02:00 Insulin Aspart (Novolog Insulin Pen) NOVOLOG *MILD* ALGORITHM WITH MEALS BEDTIME SC Last administered on 09/11/18at 18:10; Admin Dose 2 UNIT; Start 09/04/18 at 21:30 Miscellaneous Information 1 ea NOTE XX ; Start 09/04/18 at 21:00 Glucose (Glutose) 15 gm Q15M PRN PO DECREASED GLUCOSE; Start 09/04/18 at 21:00 Glucose (Glutose) 22.5 gm Q15M PRN PO DECREASED GLUCOSE; Start 09/04/18 at 21:00 Dextrose (D50w Syringe) 25 ml Q15M PRN IV DECREASED GLUCOSE; Start 09/04/18 at 21:00 Dextrose (D50w Syringe) 50 ml Q15M PRN IV DECREASED GLUCOSE; Start 09/04/18 at 21:00 Glucagon (Glucagen) 1 mg Q15M PRN IM DECREASED GLUCOSE; Start 09/04/18 at 21:00 Glucose (Glutose) 15 gm Q15M PRN BUCCAL DECREASED GLUCOSE; Start 09/04/18 at 21:00 Heparin Sodium (Porcine) (Heparin (5000 Units/1ml)) 5,000 unit BID SC Last administered on 09/11/18 21:44; Admin Dose 5,000 UNIT; Start 09/05/18 at 21:00 Insulin Glargine (Lantus) 20 units DAILY@0800 SC Last administered on 09/11/18 08:00; Admin Dose 20 UNITS; Start 09/07/18 at 08:00 Acetaminophen (Tylenol Tab) 650 mg Q6H PRN PO MILD PAIN(1-3)OR ELEVATED TEMP Last administered on 09/11/18 02:22; Admin Dose 650 MG; Start 09/07/18 at 15:00 Carvedilol (Coreg) 3.125 mg BID PO Last administered on 09/11/18 21:41; Admin Dose 3.125 MG; Start 09/11/18 at 21:00 Polyethylene Glycol (Miralax) 17 gm BID PO Last administered on 09/11/18 21:42; Admin Dose 17 GM; Start 09/11/18 at 21:00 Bisacodyl (Dulcolax) 10 mg DAILY PRN PO CONSTIPATION Last administered on 09/11/18 17:56; Admin Dose 10 MG; Start 09/11/18 at 16:00 Aspirin (Aspirin) 81 mg DAILY PO ; Start 09/12/18 at 09:00 PACHECO WORTHY NP Sep 12, 2018 09:08
[2018-09-12] MEDS: POLYETHYLENE GLYCOL 17 GM PACKET PO SCH ×2 (09:09→20:43)
[2018-09-12] MEDS: AMLODIPINE 5 MG TAB PO SCH (09:09)
[2018-09-12] MEDS: HEPARIN 5,000 UNIT/1 ML VIAL SC SCH ×2 (09:11→20:49)
[2018-09-12] MEDS: INSULIN GLARGINE [LANTus] (100 UNITS/ML) SYG SC SCH (09:11)
--- NOTE | 2018-09-12 09:26 | CONS ---
Assessment/Plan Assessment/Plan Assessment/Plan (Recall) 58 M c/ report of prior stroke w/ ? residual R sided weakness (? L MCA) and other comorbidities... who presents for evaluation of new aphasia. Serial Head CTs confirmed a new Left frontal infarction.. LDL 148; A1C 8.1% RPR neg; UDS neg TTE was notable for severe, global LV systolic dysfunction. CUS is notable for moderate ICA stenoses bilaterally MRI brain was contraindicated 2/2 pacemaker. CTA is presently limited by acute renal failure.. P: Agree w/ asa daily for secondary stroke prevention for now Continue Lipitor 80 hs for the same.. Other risk factor modification and other medical management per primary PT/OT/ST as necessary Will follow clinically Consultation Date/Type/Reason Admit Date/Time Sep 04, 2018 at 02:03 Type of Consult Neurology Reason for Consultation aphasia Requesting Provider: LEBRON GARCIA Date/Time of Note DATE: 09/12/18 TIME: 09:25 24 HR Interval Summary Free Text/Dictation Continues acute care Exam/Review of Systems Exam Vitals Vital Signs Date Temp Pulse Resp B/P (MAP) Pulse Ox O2 O2 Flow FiO2 Time Delivery Rate 09/12/18 98.4 64 20 135/67 95 02:11 (89) 09/11/18 Room Air 18:46 09/10/18 3.0 16:28 Intake and Output 09/11/18 09/11/18 09/12/18 1515:00 23:00 07:00 IntakeIntake Total 240 ml 100 ml OutputOutput Total 450 ml BalanceBalance 240 ml -350 ml Results Result Diagram: 09/12/18 0451 09/12/18 0451 Results 24hrs Laboratory Tests Test 09/11/18 11:50 09/11/18 17:05 09/11/18 21:55 09/12/18 04:51 Bedside Glucose 124 192 179 White Blood Count 9.5 Red Blood Count 4.58 L Hemoglobin 12.9 L Hematocrit 38.3 L Mean Corpuscular Volume 83.6 Mean Corpuscular 28.2 L Hemoglobin Mean Corpuscular 33.7 Hemoglobin Concent Red Cell Distribution 13.0 Width Platelet Count 323 Mean Platelet Volume 10.3 Immature Granulocytes % 0.300 Neutrophils % 61.6 Lymphocytes % 28.4 Monocytes % 6.9 Eosinophils % 2.3 Basophils % 0.5 Nucleated Red Blood 0.0 Cells % Immature Granulocytes # 0.030 Neutrophils # 5.9 Lymphocytes # 2.7 Monocytes # 0.7 Eosinophils # 0.2 Basophils # 0.1 Nucleated Red Blood 0.0 Cells # Sodium Level 139 Potassium Level 4.3 Chloride Level 106 Carbon Dioxide Level 27 Anion Gap 6 Blood Urea Nitrogen 25 H Creatinine 1.65 H Est Glomerular Filtrat 43 L Rate mL/min Glucose Level 130 Calcium Level 8.8 Phosphorus Level 3.9 Magnesium Level 2.1 Test 09/12/18 09:06 Bedside Glucose 107 Medications Medication Current Medications IV Flush (NS 3 ml) 3 ml PER PROTOCOL IV ; Start 09/04/18 at 02:30 Acetaminophen (Tylenol Supp) 650 mg Q6H PRN [place] .PAIN 1-3 OR TEMP; Start 09/04/18 at 02:30 Hydralazine HCl (Apresoline) 10 mg Q4H PRN IV ELEVATED BLOOD PRESSURE; Start 09/04/18 at 02:30 Amlodipine Besylate (Norvasc) 5 mg DAILY PO Last administered on 09/12/18at 09:09; Admin Dose 5 MG; Start 09/04/18 at 14:00 Atorvastatin Calcium (Lipitor) 80 mg HS PO Last administered on 09/11/18at 21:41; Admin Dose 80 MG; Start 09/04/18 at 21:00 Diagnostic Test (Pha) (Accu-Chek) 1 ea 02 XX Last administered on 09/11/18at 02:18; Admin Dose 1 EA; Start 09/05/18 at 02:00 Insulin Aspart (Novolog Insulin Pen) NOVOLOG *MILD* ALGORITHM WITH MEALS BEDTIME SC Last administered on 09/11/18at 18:10; Admin Dose 2 UNIT; Start 09/04/18 at 21:30 Miscellaneous Information 1 ea NOTE XX ; Start 09/04/18 at 21:00 Glucose (Glutose) 15 gm Q15M PRN PO DECREASED GLUCOSE; Start 09/04/18 at 21:00 Glucose (Glutose) 22.5 gm Q15M PRN PO DECREASED GLUCOSE; Start 09/04/18 at 21:00 Dextrose (D50w Syringe) 25 ml Q15M PRN IV DECREASED GLUCOSE; Start 09/04/18 at 21:00 Dextrose (D50w Syringe) 50 ml Q15M PRN IV DECREASED GLUCOSE; Start 09/04/18 at 21:00 Glucagon (Glucagen) 1 mg Q15M PRN IM DECREASED GLUCOSE; Start 09/04/18 at 21:00 Glucose (Glutose) 15 gm Q15M PRN BUCCAL DECREASED GLUCOSE; Start 09/04/18 at 21:00 Heparin Sodium (Porcine) (Heparin (5000 Units/1ml)) 5,000 unit BID SC Last administered on 09/12/18 09:11; Admin Dose 5,000 UNIT; Start 09/05/18 at 21:00 Insulin Glargine (Lantus) 20 units DAILY@0800 SC Last administered on 09/12/18 09:11; Admin Dose 20 UNITS; Start 09/07/18 at 08:00 Acetaminophen (Tylenol Tab) 650 mg Q6H PRN PO MILD PAIN(1-3)OR ELEVATED TEMP Last administered on 09/11/18 02:22; Admin Dose 650 MG; Start 09/07/18 at 15:00 Carvedilol (Coreg) 3.125 mg BID PO Last administered on 09/12/18 09:09; Admin Dose 3.125 MG; Start 09/11/18 at 21:00 Polyethylene Glycol (Miralax) 17 gm BID PO Last administered on 09/12/18 09:09; Admin Dose 17 GM; Start 09/11/18 at 21:00 Bisacodyl (Dulcolax) 10 mg DAILY PRN PO CONSTIPATION Last administered on 09/11/18 17:56; Admin Dose 10 MG; Start 09/11/18 at 16:00 Aspirin (Aspirin) 81 mg DAILY PO Last administered on 09/12/18 09:08; Admin Dose 81 MG; Start 09/12/18 at 09:00 ALLYN CARTWRIGHT Sep 12, 2018 09:26
[2018-09-12 15:03] VITALS: BP 134/61; PULSE 78; RESP 19
[2018-09-12 20:33] VITALS: BP 140/71; PULSE 71; RESP 19
[2018-09-12] MEDS: ATORVASTATIN 80 MG TAB PO SCH (20:43)
[2018-09-13] MEDS: ACCU-CHEK XX SCH (02:00)
[2018-09-13 02:20] VITALS: BP 140/67; PULSE 67; RESP 18
--- NOTE | 2018-09-13 05:55 | PN ---
Date/Time of Note Date/Time of Note DATE: 09/13/18 TIME: 05:55 Assessment/Plan VTE Prophylaxis Risk score (from Nsg)>0 risk: 4 SCD applied (from Nsg): Yes Pharmacological prophylaxis: heparin Lines/Catheters IV Catheter Type (from Nrs): Saline Lock Urinary Cath still in place: No Assessment/Plan Hospital Course SUBJECTIVE: Denies any pain. OBJECTIVE: Physical Exam General: Adequately build 58 year-old male lying in bed in no apparent distress. HEENT: Normocephalic, atraumatic. Eyes: Anicteric sclerae, conjunctivae clear. ENT: Nasal septum midline, oral mucosa moist. Neck supple. Respiratory: Bilaterally diminished breath sounds. No use of accessory muscles of respiration. No adventitious breath sounds. Cardiovascular: S1, S2 heard. Regular rate and rhythm. Abdomen: Soft, nontender, and nondistended. Bowel sounds positive in all 4 quadrants. Genitourinary: Deferred. Extremities: No cyanosis, no clubbing, no edema. Peripheral pulses palpable. Neurologic: The patient is awake and alert. Expressive aphasia. Right hemiparesis. Skin: Normal skin turgor. No skin rashes. Labs & Vitals per chart ASSESSMENT & PLAN 58-year-old male with past medical history of hypertension, diabetes mellitus, stroke with right-sided paresis, cardiomyopathy with dual-chamber pacemaker, and dyslipidemia who was brought to the emergency room because of difficulty in speaking, who was admitted to inpatient setting for further treatment and evaluation. 1. Subacute left frontal lobe stroke, anterior cerebral artery territory. Unable to obtain brain MRI because of underlying pacemaker. Continue aspirin and high-dose statins. Continue PT, OT, ST. 2. Cardiomyopathy. Ejection fraction of 25%. The patient has a dual-chamber pacemaker in place. Continue the patient on beta-blockers. Initiate BILLIE inhibitors if renal function permits. 3. Acute on chronic kidney disease. Being followed by nephrology. Continue to monitor renal function closely. 4. Hypertension. Continue antihypertensives. 5. Diabetes mellitus. Hemoglobin A1c 8.1. Continue sliding scale insulin along with basal insulin. 6. Dyslipidemia. Continue statins. 7. Prostate hypertrophy. Continue Flomax. 8. Carotid artery disease. Doppler showing moderate soft plaque in the right common carotid artery with a 67% stenosis. Continue medical optimization. 9. Normocytic anemia. Monitor H&H closely. Most probably anemia chronic disease. 10. DVT prophylaxis. Subcutaneous heparin. 11. Fluids, electrolytes, and nutrition. Carbohydrate controlled diet. 12. Plan. Continue aspirin plus Plavix. The patient needs fpc facility upon discharge. Patient was seen in collaboration with Dr. Mcgarry. Result Diagram: 09/13/18 0448 09/13/18 0448 Results 24hrs Laboratory Tests Test 09/12/18 09:06 09/12/18 13:16 09/12/18 17:43 09/12/18 20:30 Bedside Glucose 107 125 223 H 182 Test 09/13/18 01:30 09/13/18 04:48 Bedside Glucose 143 White Blood Count 10.9 H Red Blood Count 4.53 L Hemoglobin 13.0 L Hematocrit 38.3 L Mean Corpuscular 84.5 Volume Mean Corpuscular 28.7 L Hemoglobin Mean Corpuscular 33.9 Hemoglobin Concent Red Cell Distribution 13.0 Width Platelet Count 317 Mean Platelet Volume 10.1 Immature Granulocytes 0.300 % Neutrophils % 68.1 Lymphocytes % 22.9 Monocytes % 6.4 Eosinophils % 1.8 Basophils % 0.5 Nucleated Red Blood 0.0 Cells % Immature Granulocytes 0.030 # Neutrophils # 7.4 Lymphocytes # 2.5 Monocytes # 0.7 Eosinophils # 0.2 Basophils # 0.1 Nucleated Red Blood 0.0 Cells # Sodium Level 141 Potassium Level 4.3 Chloride Level 106 Carbon Dioxide Level 29 Anion Gap 6 Blood Urea Nitrogen 27 H Creatinine 1.65 H Est Glomerular Filtrat 43 L Rate mL/min Glucose Level 132 Calcium Level 9.1 Phosphorus Level 4.1 Magnesium Level 2.1 Exam/Review of Systems Exam Vitals Vital Signs Date Temp Pulse Resp B/P (MAP) Pulse Ox O2 O2 Flow FiO2 Time Delivery Rate 09/13/18 97.5 67 18 140/67 94 02:20 (91) 09/12/18 Room Air 15:03 09/10/18 3.0 16:28 Intake and Output 09/12/18 09/12/18 09/13/18 1515:00 23:00 07:00 IntakeIntake Total 120 ml 220 ml 100 ml OutputOutput Total 200 ml 500 ml BalanceBalance 120 ml 20 ml -400 ml Results Results 24hrs Laboratory Tests Test 09/12/18 09:06 09/12/18 13:16 09/12/18 17:43 09/12/18 20:30 Bedside Glucose 107 125 223 H 182 Test 09/13/18 01:30 09/13/18 04:48 Bedside Glucose 143 White Blood Count 10.9 H Red Blood Count 4.53 L Hemoglobin 13.0 L Hematocrit 38.3 L Mean Corpuscular 84.5 Volume Mean Corpuscular 28.7 L Hemoglobin Mean Corpuscular 33.9 Hemoglobin Concent Red Cell Distribution 13.0 Width Platelet Count 317 Mean Platelet Volume 10.1 Immature Granulocytes 0.300 % Neutrophils % 68.1 Lymphocytes % 22.9 Monocytes % 6.4 Eosinophils % 1.8 Basophils % 0.5 Nucleated Red Blood 0.0 Cells % Immature Granulocytes 0.030 # Neutrophils # 7.4 Lymphocytes # 2.5 Monocytes # 0.7 Eosinophils # 0.2 Basophils # 0.1 Nucleated Red Blood 0.0 Cells # Sodium Level 141 Potassium Level 4.3 Chloride Level 106 Carbon Dioxide Level 29 Anion Gap 6 Blood Urea Nitrogen 27 H Creatinine 1.65 H Est Glomerular Filtrat 43 L Rate mL/min Glucose Level 132 Calcium Level 9.1 Phosphorus Level 4.1 Magnesium Level 2.1 Medications Medication Current Medications IV Flush (NS 3 ml) 3 ml PER PROTOCOL IV ; Start 09/04/18 at 02:30 Acetaminophen (Tylenol Supp) 650 mg Q6H PRN [place] .PAIN 1-3 OR TEMP; Start 09/04/18 at 02:30 Hydralazine HCl (Apresoline) 10 mg Q4H PRN IV ELEVATED BLOOD PRESSURE; Start 09/04/18 at 02:30 Amlodipine Besylate (Norvasc) 5 mg DAILY PO Last administered on 09/12/18at 09:09; Admin Dose 5 MG; Start 09/04/18 at 14:00 Atorvastatin Calcium (Lipitor) 80 mg HS PO Last administered on 09/12/18at 20:43; Admin Dose 80 MG; Start 09/04/18 at 21:00 Diagnostic Test (Pha) (Accu-Chek) 1 ea 02 XX Last administered on 09/11/18at 02:18; Admin Dose 1 EA; Start 09/05/18 at 02:00 Insulin Aspart (Novolog Insulin Pen) NOVOLOG *MILD* ALGORITHM WITH MEALS BEDTIME SC Last administered on 09/12/18at 20:48; Admin Dose 1 UNIT; Start 09/04/18 at 21:30 Miscellaneous Information 1 ea NOTE XX ; Start 09/04/18 at 21:00 Glucose (Glutose) 15 gm Q15M PRN PO DECREASED GLUCOSE; Start 09/04/18 at 21:00 Glucose (Glutose) 22.5 gm Q15M PRN PO DECREASED GLUCOSE; Start 09/04/18 at 21:00 Dextrose (D50w Syringe) 25 ml Q15M PRN IV DECREASED GLUCOSE; Start 09/04/18 at 21:00 Dextrose (D50w Syringe) 50 ml Q15M PRN IV DECREASED GLUCOSE; Start 09/04/18 at 21:00 Glucagon (Glucagen) 1 mg Q15M PRN IM DECREASED GLUCOSE; Start 09/04/18 at 21:00 Glucose (Glutose) 15 gm Q15M PRN BUCCAL DECREASED GLUCOSE; Start 09/04/18 at 21:00 Heparin Sodium (Porcine) (Heparin (5000 Units/1ml)) 5,000 unit BID SC Last administered on 09/12/18 20:49; Admin Dose 5,000 UNIT; Start 09/05/18 at 21:00 Insulin Glargine (Lantus) 20 units DAILY@0800 SC Last administered on 09/12/18 09:11; Admin Dose 20 UNITS; Start 09/07/18 at 08:00 Acetaminophen (Tylenol Tab) 650 mg Q6H PRN PO MILD PAIN(1-3)OR ELEVATED TEMP Last administered on 09/11/18 02:22; Admin Dose 650 MG; Start 09/07/18 at 15:00 Carvedilol (Coreg) 3.125 mg BID PO Last administered on 09/12/18 20:43; Admin Dose 3.125 MG; Start 09/11/18 at 21:00 Polyethylene Glycol (Miralax) 17 gm BID PO Last administered on 09/12/18 20:43; Admin Dose 17 GM; Start 09/11/18 at 21:00 Bisacodyl (Dulcolax) 10 mg DAILY PRN PO CONSTIPATION Last administered on 09/11/18 17:56; Admin Dose 10 MG; Start 09/11/18 at 16:00 Aspirin (Aspirin) 81 mg DAILY PO Last administered on 09/12/18 09:08; Admin Dose 81 MG; Start 09/12/18 at 09:00 PACHECO WORTHY NP Sep 13, 2018 05:55
[2018-09-13] MEDS: INSULIN ASPART [NOVOLOG] 3 ML PEN SC SCH ×4 (07:50→20:20)
[2018-09-13 08:25] VITALS: BP 148/72; PULSE 77; RESP 18
--- NOTE | 2018-09-13 08:30 | PN ---
DATE: 09/13/2018 SUBJECTIVE: The patient is stable, no events overnight. No fevers, chills, nausea, vomiting. OBJECTIVE: VITAL SIGNS: Blood pressure 140/67, respiration 18, pulse 67, temperature 97.5. HEENT: Head is normocephalic. NECK: Supple. HEART: Regular rate. LUNGS: Show diminished breath sounds at the base. ABDOMEN: Soft, nontender to palpation without rebound or guarding. EXTREMITIES: Negative for clubbing, cyanosis, no edema. DERMATOLOGIC: No rashes. MUSCULOSKELETAL: No joint effusion. NEUROLOGIC: No change in exam. MEDICATIONS: Have been reviewed. LABORATORY DATA: Has been reviewed. IMAGING STUDIES: Have been reviewed. ASSESSMENT AND PLAN: 1. Nonoliguric acute injury on top of chronic kidney disease with unknown baseline creatinine. Etio logy is secondary to hemodynamics. Renal function stabilized. Creatinine 1.4 to 1.6 mg/dL. At this point, continue current treatment plans, supportive care, renally dose all medication. 2. Anemia. Monitor hemoglobin and hematocrit levels. 3. Mineral bone disorder. Monitor calcium and phosphorus levels. 4. Hypertension. Continue blood pressure regimen. 5. Possible cerebrovascular accident. Continue treatment plan. Follow up with neurology. 6. Diabetes. Continue current insulin regimen. 7. Benign prostatic hypertrophy. Continue Flomax. 8. Coronary artery stenosis. 9. History of congestive heart failure. 10. Coronary artery disease. Dictated By: BROOKS HER DO NR/NTS Conf#: [id number] DID#: [id number] CC: HASMUKH KWAN MD;*EndCC*
[2018-09-13] MEDS: ASPIRIN 81 MG TAB PO SCH (08:38)
[2018-09-13] MEDS: AMLODIPINE 5 MG TAB PO SCH (08:41)
[2018-09-13] MEDS: POLYETHYLENE GLYCOL 17 GM PACKET PO SCH ×2 (08:42→20:14)
[2018-09-13] MEDS: INSULIN GLARGINE [LANTus] (100 UNITS/ML) SYG SC SCH (08:43)
[2018-09-13] MEDS: HEPARIN 5,000 UNIT/1 ML VIAL SC SCH ×2 (08:43→20:21)
--- NOTE | 2018-09-13 12:49 | CONS ---
Assessment/Plan Assessment/Plan Assessment/Plan (Recall) 58 M c/ report of prior stroke w/ ? residual R sided weakness (? L MCA) and other comorbidities... who presents for evaluation of new aphasia. Serial Head CTs confirmed a new Left frontal infarction.. LDL 148; A1C 8.1% RPR neg; UDS neg TTE was notable for severe, global LV systolic dysfunction. CUS is notable for moderate ICA stenoses bilaterally MRI brain was contraindicated 2/2 pacemaker. CTA is presently limited by acute renal failure.. P: Continue asa daily for secondary stroke prevention, indefinitely Continue Lipitor 80 hs for the same..to goal LDL < 70 Other risk factor modification and other medical management per primary PT/OT/ST as necessary Will sign off for now; please call w/ ?s Consultation Date/Type/Reason Admit Date/Time Sep 04, 2018 at 02:03 Type of Consult Neurology Reason for Consultation aphasia Requesting Provider: LEBRON GARCIA Date/Time of Note DATE: 09/13/18 TIME: 12:48 24 HR Interval Summary Free Text/Dictation Awaiting SNF placement Exam/Review of Systems Exam Vitals Vital Signs Date Temp Pulse Resp B/P (MAP) Pulse Ox O2 O2 Flow FiO2 Time Delivery Rate 09/13/18 98.3 77 18 148/72 95 Room Air 08:25 (97) 09/10/18 3.0 16:28 Intake and Output 09/12/18 09/12/18 09/13/18 1515:00 23:00 07:00 IntakeIntake Total 120 ml 220 ml 100 ml OutputOutput Total 200 ml 500 ml BalanceBalance 120 ml 20 ml -400 ml Results Result Diagram: 09/13/18 0448 09/13/18 0448 Results 24hrs Laboratory Tests Test 09/12/18 13:16 09/12/18 17:43 09/12/18 20:30 09/13/18 01:30 Bedside Glucose 125 223 H 182 143 Test 09/13/18 04:48 09/13/18 08:36 White Blood Count 10.9 H Red Blood Count 4.53 L Hemoglobin 13.0 L Hematocrit 38.3 L Mean Corpuscular 84.5 Volume Mean Corpuscular 28.7 L Hemoglobin Mean Corpuscular 33.9 Hemoglobin Concent Red Cell Distribution 13.0 Width Platelet Count 317 Mean Platelet Volume 10.1 Immature Granulocytes 0.300 % Neutrophils % 68.1 Lymphocytes % 22.9 Monocytes % 6.4 Eosinophils % 1.8 Basophils % 0.5 Nucleated Red Blood 0.0 Cells % Immature Granulocytes 0.030 # Neutrophils # 7.4 Lymphocytes # 2.5 Monocytes # 0.7 Eosinophils # 0.2 Basophils # 0.1 Nucleated Red Blood 0.0 Cells # Sodium Level 141 Potassium Level 4.3 Chloride Level 106 Carbon Dioxide Level 29 Anion Gap 6 Blood Urea Nitrogen 27 H Creatinine 1.65 H Est Glomerular 43 L Filtrat Rate mL/min Glucose Level 132 Calcium Level 9.1 Phosphorus Level 4.1 Magnesium Level 2.1 Bedside Glucose 118 Medications Medication Current Medications IV Flush (NS 3 ml) 3 ml PER PROTOCOL IV ; Start 09/04/18 at 02:30 Acetaminophen (Tylenol Supp) 650 mg Q6H PRN [place] .PAIN 1-3 OR TEMP; Start 09/04/18 at 02:30 Hydralazine HCl (Apresoline) 10 mg Q4H PRN IV ELEVATED BLOOD PRESSURE; Start 09/04/18 at 02:30 Amlodipine Besylate (Norvasc) 5 mg DAILY PO Last administered on 09/13/18at 08:41; Admin Dose 5 MG; Start 09/04/18 at 14:00 Atorvastatin Calcium (Lipitor) 80 mg HS PO Last administered on 09/12/18at 20:43; Admin Dose 80 MG; Start 09/04/18 at 21:00 Diagnostic Test (Pha) (Accu-Chek) 1 ea 02 XX Last administered on 09/11/18at 02:18; Admin Dose 1 EA; Start 09/05/18 at 02:00 Insulin Aspart (Novolog Insulin Pen) NOVOLOG *MILD* ALGORITHM WITH MEALS BEDTIME SC Last administered on 09/12/18at 20:48; Admin Dose 1 UNIT; Start 09/04/18 at 21:30 Miscellaneous Information 1 ea NOTE XX ; Start 09/04/18 at 21:00 Glucose (Glutose) 15 gm Q15M PRN PO DECREASED GLUCOSE; Start 09/04/18 at 21:00 Glucose (Glutose) 22.5 gm Q15M PRN PO DECREASED GLUCOSE; Start 09/04/18 at 21:00 Dextrose (D50w Syringe) 25 ml Q15M PRN IV DECREASED GLUCOSE; Start 09/04/18 at 21:00 Dextrose (D50w Syringe) 50 ml Q15M PRN IV DECREASED GLUCOSE; Start 09/04/18 at 21:00 Glucagon (Glucagen) 1 mg Q15M PRN IM DECREASED GLUCOSE; Start 09/04/18 at 21:00 Glucose (Glutose) 15 gm Q15M PRN BUCCAL DECREASED GLUCOSE; Start 09/04/18 at 21:00 Heparin Sodium (Porcine) (Heparin (5000 Units/1ml)) 5,000 unit BID SC Last administered on 09/13/18 08:43; Admin Dose 5,000 UNIT; Start 09/05/18 at 21:00 Insulin Glargine (Lantus) 20 units DAILY@0800 SC Last administered on 09/13/18 08:43; Admin Dose 20 UNITS; Start 09/07/18 at 08:00 Acetaminophen (Tylenol Tab) 650 mg Q6H PRN PO MILD PAIN(1-3)OR ELEVATED TEMP Last administered on 09/11/18 02:22; Admin Dose 650 MG; Start 09/07/18 at 15:00 Carvedilol (Coreg) 3.125 mg BID PO Last administered on 09/13/18 08:41; Admin Dose 3.125 MG; Start 09/11/18 at 21:00 Polyethylene Glycol (Miralax) 17 gm BID PO Last administered on 09/13/18 08:42; Admin Dose 17 GM; Start 09/11/18 at 21:00 Bisacodyl (Dulcolax) 10 mg DAILY PRN PO CONSTIPATION Last administered on 09/11/18 17:56; Admin Dose 10 MG; Start 09/11/18 at 16:00 Aspirin (Aspirin) 81 mg DAILY PO Last administered on 09/13/18 08:38; Admin Dose 81 MG; Start 09/12/18 at 09:00 ALLYN CARTWRIGHT Sep 13, 2018 12:48
[2018-09-13 14:18] VITALS: BP 134/64; PULSE 67; RESP 18
[2018-09-13] MEDS: ACETAMINOPHEN 325 MG TAB PO PRN (19:22)
[2018-09-13 19:33] VITALS: BP 154/68; PULSE 67; RESP 18
[2018-09-13] MEDS: ATORVASTATIN 80 MG TAB PO SCH (20:13)
[2018-09-14] MEDS: ACCU-CHEK XX SCH (02:00)
[2018-09-14 02:43] VITALS: BP 136/70; PULSE 66; RESP 18
[2018-09-14] MEDS: ACETAMINOPHEN 325 MG TAB PO PRN (02:52)
[2018-09-14 07:33] VITALS: BP 139/79; PULSE 64; RESP 18
--- NOTE | 2018-09-14 08:45 | PN ---
DATE: 09/14/2018 SUBJECTIVE: The patient is stable, no events overnight. OBJECTIVE: VITAL SIGNS: Blood pressure is 139/79, pulse 64, respiration 18, temperature 98.2. HEENT: Head is normocephalic. NECK: Supple. HEART: Regular rate. LUNGS: Show diminished breath sounds at the base. ABDOMEN: Soft, nontender to palpation without rebound or guarding. EXTREMITIES: Negative for clubbing, cyanosis, no edema. DERMATOLOGIC: No rashes. MUSCULOSKELETAL: No joint effusion. NEUROLOGIC: No change in exam. MEDICATIONS: Reviewed. LABORATORY DATA: Reviewed. IMAGING STUDIES: Reviewed. ASSESSMENT AND PLAN: 1. Nonoliguric acute kidney injury on top of chronic kidney disease. Renal function has been stable , continue to monitor. The patient will be reintroduced on diuretic therapy. 2. Anemia. Monitor hemoglobin and hematocrit levels. 3. Mineral bone disorder. Monitor calcium and phosphorus levels. 4. Hypertension. Blood pressure controlled. Continue current regimen. 5. History of congestive heart failure. The patient appears compensated. We will reintroduce diure tic therapy, Lasix 20 mg daily and Aldactone 25 mg daily. Monitor renal function, electrolytes close ly. 6. Possible cerebrovascular accident. Continue medical management. 7. Diabetes. Continue current insulin regimen. 8. Benign prostatic hypertrophy. Continue Flomax. 9. Coronary artery stenosis. Continue to monitor. Dictated By: BROOKS SAMS/NTS Conf#: [id number] DID#: [id number] CC: LEBRON GARCIA MD;*EndCC*
[2018-09-14] MEDS: ASPIRIN 81 MG TAB PO SCH (08:48)
[2018-09-14] MEDS: AMLODIPINE 5 MG TAB PO SCH (08:49)
[2018-09-14] MEDS: HEPARIN 5,000 UNIT/1 ML VIAL SC SCH (08:51)
[2018-09-14] MEDS: INSULIN ASPART [NOVOLOG] 3 ML PEN SC SCH ×3 (08:52→17:45)
[2018-09-14] MEDS: INSULIN GLARGINE [LANTus] (100 UNITS/ML) SYG SC SCH (08:53)
[2018-09-14] MEDS: POLYETHYLENE GLYCOL 17 GM PACKET PO SCH (08:54)
[2018-09-14] MEDS ORDERED: FUROSEMIDE 20 MG TAB PO SCH (09:00)
[2018-09-14] MEDS ORDERED: SPIRONOLACTONE 25 MG TAB PO SCH (09:00)
--- NOTE | 2018-09-14 10:03 | PN ---
Assessment/Plan VTE Prophylaxis Risk score (from Nsg)>0 risk: 4 Lines/Catheters Urinary Cath still in place: No Assessment/Plan Result Diagram: 09/14/18 0434 09/14/18 0434 Results 24hrs Exam/Review of Systems Results Results 24hrs Medications Medication PACHECO WORTHY NP Sep 14, 2018 10:03
[2018-09-14 14:00] VITALS: BP 142/69; PULSE 70; RESP 18
[2018-09-14] MEDS ORDERED: LAS20 PO (14:42)
[2018-09-14] MEDS ORDERED: Insulin Glargine SC (14:51)
[2018-09-14] MEDS ORDERED: CARV3.1260 PO (14:52)
--- NOTE | 2018-09-14 15:09 | DS ---
Date/Time of Note Date/Time of Note DATE: 09/14/18 TIME: 15:07 Discharge Summary Admission/Discharge Info Admit Date/Time Sep 04, 2018 at 02:03 Discharge Date/Time Discharge Diagnosis 1. Subacute left frontal lobe stroke, anterior cerebral artery territory. 2. Cardiomyopathy. Ejection fraction of 25%. 3. Acute on chronic kidney disease. 4. Hypertension. 5. Diabetes mellitus. Hemoglobin A1c 8.1. 6. Dyslipidemia. 7. Prostate hypertrophy. 8. Carotid artery disease. 9. Normocytic anemia. Patient Condition: Stable Consults 1. Antonia Cardozo MD, Neurology. 2. Octaviano Dove DO, Nephrology. Procedures Brain CT IMPRESSION: 1. Subacute left frontal lobe stroke, anterior cerebral artery territory. 2. Mild age related cerebral volume loss. Mild small vessel ischemic changes. 2. Extensive atherosclerotic vascular calcification. 3. Extensive calcification involving the lentiform nuclei, and bilateral hippocampal formations. 2D Echocardiogram Conclusions: Normal left ventricular cavity size. Sigmoid septum. Severe global left ventricular systolic dysfunction. Ejection fraction is visually estimated at 25 %. Tissue Doppler/Mitral Doppler indices are consistent with pseudonormalization with mildly elevated left atrial pressure (Stage II diastolic dysfunction). Mild mitral leaflet calcification. Mild mitral annular calcification. Trace mitral regurgitation. No significant aortic stenosis or insufficiency. Aortic cusps appear mildly calcified. Normal appearance of the tricuspid valve. The estimated Peak RVSP is 24 mmHg. There is trace tricuspid regurgitation. Bubble study was performed with and with out Valsalva indicating no evidence of intra atrial shunt. Carotid Doppler IMPRESSION: Moderate soft plaque in the right common carotid artery with a 67% stenosis. Increased velocities in the bilateral ICAs, suspicious for at least 50-69% stenosis. Hx of Present Illness This is a 58-year-old male with past medical history of hypertension, diabetes mellitus, stroke with right-sided paresis, cardiomyopathy with dual-chamber pacemaker, and dyslipidemia who was brought to the emergency room because of difficulty in speaking, who was admitted to inpatient setting for further treatment and evaluation. Hospital Course Neurology consult was obtained. The patient's first CT scan of the brain was negative for any acute findings. The patient was unable to obtain a brain MRI because the patient has an underlying dual-chamber pacemaker in place. [place], the patient underwent a repeat CT scan of the brain on 09/05/2018 that was showing subacute left frontal lobe stroke, of the anterior cerebral artery territory. The patient was maintained on aspirin and high-dose statins. The patient was evaluated by physical therapy, occupational therapy, and speech therapy. The patient had evidence of underlying expressive aphasia. The patient was maintained on a pured diet with nectar thick liquids and aspiration precautions. The patient was also noticed to have right-sided hemiparesis. The patient has underlying cardiomyopathy. The patient's left ventricular ejection fraction was found to be 25%. The patient already has a dual-chamber pacemaker in place. The patient was maintained on beta-blockers. The patient's BILLIE inhibitors and aldosterone antagonists were put on hold because of elevated renal function. The patient's BILLIE inhibitors and aldosterone antagonist were resumed once the patient's renal function improved. The patient had evidence of acute on chronic kidney disease. The patient was being followed by nephrology. The patient has underlying hypertension. The patient's blood pressure was controlled after 48 hours from the day of admission. The patient has underlying diabetes mellitus. The patient's hemoglobin A1c was found to be 8.1. He was maintained on sliding scale insulin along with basal insulin. He also has underlying prostate hypertrophy. The patient was continued on Flomax. The patient's carotid Doppler study was showing moderate soft plaque in the right common carotid artery with a 67% stenosis. The Doppler also showed icreased velocities in the bilateral ICAs, suspicious for at least 50-69% stenosis. The patient was continued on optimal medical therapy. The patient was noticed to have normocytic anemia. The patient's H&H was monitored closely. This could be most probably anemia of chronic disease. Because of the patient's comorbidities as well as disability, a clinical decision was made to transfer this patient to a intermediate facility. There was a delay in getting the patient a bed to intermediate facility. The patient will be transferred to a intermediate facility on 09/14/2018. At this time I would like to thank all the consultants for seeing the patient and providing clinical recommendations. Patient was seen in collaboration with Dr. Mcgarry. Home Meds Active Scripts Carvedilol* (Carvedilol*) 3.125 Mg Tablet, 3.125 MG PO BID, #60 TAB Prov:PACHECO WOTRHY SENIOR RESEARCH ANALYST 09/14/18 [Insulin Glargine] 100 UNITS/ML SOLN No Conflict Check, 20 UNITS SC DAILY@0800 for 30 Days Prov:PACHECO WORTHY SENIOR RESEARCH ANALYST 09/14/18 Furosemide (Lasix) 20 Mg Tab, 20 MG PO DAILY, #30 TAB Prov:PACHECO WORTHY SENIOR RESEARCH ANALYST 09/14/18 Reported Medications Insulin Glargine,Hum.rec.anlog (Basaglar Kwikpen U-100) 100 Unit/1 Ml Insuln.pen, 40 UNIT SC QHS, EA 09/04/18 Benazepril Hcl* (Benazepril Hcl*) 5 Mg Tablet, 5 MG PO DAILY, #30 TAB 09/04/18 Hydralazine Hcl* (Hydralazine Hcl*) 50 Mg Tab, 12.5 MG PO TID, #90 TAB 09/04/18 Tamsulosin Hcl* (Flomax*) 0.4 Mg Cap.er.24h, 0.4 MG PO DAILY, CAP 09/04/18 Fluoxetine Hcl* (Fluoxetine Hcl*) 10 Mg Capsule, 10 MG PO DAILY, CAP 09/04/18 Ferrous Sulfate* (Ferrous Sulfate*) 325 Mg Tabec, 325 MG PO DAILY, TAB 09/04/18 Cholecalciferol* (Vitamin D3*) 1,000 Unit Tablet, 1000 UNIT PO DAILY, TAB 09/04/18 Atorvastatin* (Atorvastatin*) 80 Mg Tablet, 80 MG PO QHS, #30 TAB 09/04/18 Spironolactone* (Spironolactone*) 100 Mg Tablet, 25 MG PO DAILY, TAB 09/04/18 Aspirin* (Aspirin* Chew) 81 Mg Tab.chew, 81 MG PO DAILY, TAB.CHEW 09/04/18 Discontinued Reported Medications Insulin Aspart* (Novolog Insulin Pen*) 100 Unit/Ml Soln, 15 UNIT SC WITH LUNCH, EA 09/04/18 Insulin Aspart* (Novolog Insulin Pen*) 100 Unit/Ml Soln, 20 UNIT SC WITH DINNER, EA 09/04/18 Insulin Aspart* (Novolog Insulin Pen*) 100 Unit/Ml Soln, 10 UNIT SC WITH BREAKFAST, EA 09/04/18 Furosemide* (Furosemide*) 20 Mg Tablet, 60 MG PO BID, #30 TAB 09/04/18 Follow-up Plan The patient being transferred to a intermediate facility, where he will be followed by a primary care physician. Primary Care Provider Care Physician No Primary Time spent on discharge: > 30 minutes Pending Labs Laboratory Tests Test 09/13/18 17:32 09/13/18 20:17 09/14/18 01:24 09/14/18 04:34 Bedside 160 245 146 Glucose mg/dL (70-220) mg/dL (70-220) mg/dL (70-220) White Blood 9.4 Count 10^3/ul (4.8-1 0.8) Red Blood 4.50 Count 10^6/ul (4.70- 6.10) Hemoglobin 12.9 g/dl (14.0-18. 0) Hematocrit 38.2 % (42.0-52.0) Mean 84.9 Corpuscular fl (82.0-101.0 Volume ) Mean 28.7 Corpuscular pg (29.0-33.0) Hemoglobin Mean 33.8 Corpuscular g/dl (32.0-37. Hemoglobin Conc 0) ent Red Cell 13.1 Distribution % (11.5-14.5) Width Platelet Count 302 10^3/UL (140-4 15) Mean Platelet 10.3 Volume fl (7.4-10.4) Immature 0.200 Granulocytes % % (0.001-0.429 ) Neutrophils % 57.5 % (39.0-77.0) Lymphocytes % 32.2 % (15.0-51.0) Monocytes % 7.1 % (0.0-11.0) Eosinophils % 2.5 % (0.0-7.0) Basophils % 0.5 % (0.0-2.0) Nucleated Red 0.0 Blood Cells % /100WBC (0.0-0 .0) Immature 0.020 Granulocytes # 10^3/ul (0.0-0 .031) Neutrophils # 5.4 10^3/ul (1.6-7 .5) Lymphocytes # 3.0 10^3/ul (0.8-2 .9) Monocytes # 0.7 10^3/ul (0.3-0 .9) Eosinophils # 0.2 10^3/ul (0.0-0 .5) Basophils # 0.1 10^3/ul (0.0-0 .1) Nucleated Red 0.0 Blood Cells # 10^3/ul (0.0-0 .0) Sodium Level 139 mmol/L (135-14 4) Potassium 4.4 Level mmol/L (3.5-5. 1) Chloride Level 104 mmol/L (97-110 ) Carbon Dioxide 28 Level mmol/L (21-31) Anion Gap 7 (5-13) Blood Urea 26 Nitrogen mg/dl (7-20) Creatinine 1.68 mg/dl (0.61-1. 24) Est Glomerular 42 Filtrat mL/min (>60) Rate mL/min Glucose Level 171 mg/dl (70-220) Calcium Level 8.9 mg/dl (8.4-10. 2) Phosphorus 4.6 Level mg/dl (2.5-4.9 ) Magnesium 2.2 Level mg/dl (1.7-2.5 ) Test 09/14/18 08:28 09/14/18 12:32 Bedside 159 227 Glucose mg/dL (70-220) mg/dL (70-220) PACHECO WORTHY NP Sep 14, 2018 15:09
== END 2018-09-14 18:30 | DRG 65 ==
LOC: E/R 00:10 → 6WM 02:03 → MS1 09-11 18:04
PROVIDERS: ADMIT Family Medicine; ATTEND Internal Medicine
DX: I63.9 Cerebral infarction, unspecified (principal); G81.91 Hemiplegia, unspecified affecting right dominant side; N17.9 Acute kidney failure, unspecified; I42.9 Cardiomyopathy, unspecified; I12.0 Hypertensive chronic kidney disease with stage 5 chronic kidney disease or end stage renal disease; E11.22 Type 2 diabetes mellitus with diabetic chronic kidney disease; R13.19 Other dysphagia; I25.10 Atherosclerotic heart disease of native coronary artery without angina pectoris; N18.9 Chronic kidney disease, unspecified; E78.5 Hyperlipidemia, unspecified; N40.0 Benign prostatic hyperplasia without lower urinary tract symptoms; D63.8 Anemia in other chronic diseases classified elsewhere; R29.810 Facial weakness; I65.21 Occlusion and stenosis of right carotid artery; Z79.4 Long term (current) use of insulin; Z79.82 Long term (current) use of aspirin; Z95.0 Presence of cardiac pacemaker; Z87.891 Personal history of nicotine dependence
CPT/HCPCS: 36415; 70450; 71045; 76775; 80048; 80053; 80061; 80307; 81001; 81003; 82043; 82962; 83036; 83690; 83735; 84100; 84155; 84300; 84443; 84484; 85025; 85651; 86592; 92507; 92523; 92526; 92610; 93005; 93306; 93880; 95819; 97110; 97163; 97167; 97530; 97535; A4310; J1644; J1815; J7030; P9612

== ENCOUNTER 2018-10-19 11:10 | Inpatient (IN) | payer OTHER ==
[~2018-10-19] VITALS: Ht 172.7 cm; Wt 76.0 kg
[2018-10-19] VITALS (17 sets, daily range): BP systolic 109–126; BP diastolic 56–74; PULSE 80–103; RESP 25–33; Ht 172.7 cm; Wt 76.0 kg
[~2018-10-19 11:10] MED LIST: ACET-2047 PO; AMLO5TAB4 PO; APIX5TAB PO; ASPI-903 PO; ATOR-2 PO; BENA5TAB33 PO; BISA5TAB6 PO; CARV3.1260 PO; CHOL100062 PO; FER325 PO; FLUO10CA17 PO; HEPA500021 IJ; HYDR-3672 PO; INSU100I33 SC; Insulin Glargine SC; LANT3I SC; LAS20 PO; NOVO3I SC; POLY17PO6 PO; SPIR100T4 PO; TAMS-14 PO
[2018-10-19] MEDS ORDERED: SODIUM CHLORIDE 0.9% 1L BAG IV* STA (11:48)
[2018-10-19] MEDS ORDERED: CEFEPIME 2GM/50 ML (PMX) 50 ML IVPB STA (11:48)
[2018-10-19] MEDS ORDERED: VANCOMYCIN 1 GM (PMX) 250 ML IVPB ONE (12:00)
[2018-10-19] MEDS ORDERED: DILTIAZEM-D5W 125MG/125ML DRIP 125 ML IV SCH ×2 (13:30→15:00)
[2018-10-19] MEDS ORDERED: DILTIAZEM 25 MG INJ IV ONE ×2 (13:30→15:30)
[2018-10-19] MEDS ORDERED: INSULIN ASPART [NOVOLOG] 3 ML PEN SC ONE (14:00)
[2018-10-19] MEDS ORDERED: ACCU-CHEK XX ONE (14:30)
[2018-10-19] MEDS ORDERED: MAGNESIUM HYDROXIDE 30ML CUP PO PRN (15:00)
[2018-10-19] MEDS ORDERED: NACL 0.9% 3 ML SYG IV SCH (15:00)
[2018-10-19] MEDS ORDERED: VANCOMYCIN IV PER PHARMACY XX SCH (15:00)
[2018-10-19] MEDS ORDERED: DOCUSATE SODIUM 100 MG CAP PO PRN (15:00)
[2018-10-19] MEDS ORDERED: hydrALAzine 20 MG INJ IV PRN (15:00)
[2018-10-19] MEDS ORDERED: DEXTROSE 50% 50 ML SYRINGE IV PRN ×4 (15:00→15:30)
[2018-10-19] MEDS ORDERED: ONDANSETRON 4 MG INJ IV PRN (15:00)
[2018-10-19] MEDS: ACCU-CHEK XX SCH ×9 (15:00→23:14)
[2018-10-19] MEDS ORDERED: NITROGLYCERIN (SL) 0.4 MG TAB SL PRN (15:00)
[2018-10-19] MEDS ORDERED: ALBUTEROL/IPRATROPIUM (NEB) 3 ML AMP HHN PRN (15:00)
[2018-10-19] MEDS ORDERED: ACETAMINOPHEN 325 MG TAB PO PRN (15:00)
[2018-10-19] MEDS ORDERED: morphine 2 MG INJ IV PRN (15:00)
[2018-10-19] MEDS ORDERED: LORAZEPAM 2 MG INJ IV PRN (15:00)
[2018-10-19] MEDS ORDERED: GLUCOSE GEL 15 GRAM TUBE PO PRN ×2 (15:30)
[2018-10-19] MEDS ORDERED: INSULIN HUMAN REGULAR 100 UNIT in SOD CHLORIDE 0.9% 99 ML IV SCH (15:30)
[2018-10-19] MEDS ORDERED: GLUCOSE GEL 15 GRAM TUBE BUCCAL PRN (15:30)
[2018-10-19] MEDS ORDERED: GLUCAGON 1 MG INJ IM PRN (15:30)
[2018-10-19] MEDS: SOD CHLORIDE 0.9% 1,000 ML IV SCH ×2 (16:11→23:17)
[2018-10-19] MEDS ORDERED: METOPROLOL 5 MG INJ IV PRN (19:30)
[2018-10-19] MEDS ORDERED: HEPARIN 5,000 UNIT/1 ML VIAL SC SCH (21:00)
[2018-10-19] MEDS: POLYETHYLENE GLYCOL 17 GM PACKET PO SCH (21:00)
[2018-10-19] MEDS: DIGOXIN 500 MCG INJ IV SCH (21:04)
[2018-10-19] MEDS: ENOXAPARIN 100 MG/ML SYG SC SCH (21:10)
[2018-10-19] MEDS: FAMOTIDINE 20 MG INJ IV SCH (21:10)
[2018-10-20] VITALS (37 sets, daily range): BP systolic 96–151; BP diastolic 47–95; PULSE 86–121; RESP 16–36
[2018-10-20] MEDS: ACCU-CHEK XX SCH ×15 (00:06→14:00)
[2018-10-20] MEDS: DIGOXIN 500 MCG INJ IV SCH (01:14)
[2018-10-20] MEDS ORDERED: PENDING SANTYL ORDER FOR WOUND CARE XX PRN (03:30)
[2018-10-20] MEDS ORDERED: COLLAGENASE 5 GM (UD JAR) TOP PRN (04:30)
[2018-10-20] MEDS: SOD CHLORIDE 0.9% 1,000 ML IV SCH ×2 (07:12→20:52)
[2018-10-20] MEDS ORDERED: NA BICARBONATE 8.4% 50 ML SYG IV ONE ×2 (08:30→10:00)
[2018-10-20] MEDS ORDERED: COLLAGENASE 5 GM (UD JAR) TOP SCH (09:00)
[2018-10-20] MEDS: TAMSULOSIN (SR) 0.4 MG CAP PO SCH (09:00)
[2018-10-20] MEDS: POLYETHYLENE GLYCOL 17 GM PACKET PO SCH ×2 (09:00→21:00)
[2018-10-20] MEDS: INSULIN ASPART [NOVOLOG] 3 ML PEN SC SCH ×3 (12:12→20:54)
[2018-10-20] MEDS: CEFEPIME 2GM/50 ML (PMX) 50 ML IVPB SCH (12:51)
[2018-10-20] MEDS: INSULIN GLARGINE [LANTus] (100 UNITS/ML) SYG SC SCH (12:52)
[2018-10-20] MEDS ORDERED: DEXTROSE 50% 50 ML SYRINGE IV PRN ×2 (13:00)
[2018-10-20] MEDS ORDERED: GLUCOSE GEL 15 GRAM TUBE PO PRN ×2 (13:00)
[2018-10-20] MEDS ORDERED: GLUCAGON 1 MG INJ IM PRN (13:00)
[2018-10-20] MEDS ORDERED: GLUCOSE GEL 15 GRAM TUBE BUCCAL PRN (13:00)
[2018-10-20] MEDS: DAKINS 0.0125%(1/40) 473 ML SOLUTION TP SCH (15:17)
[2018-10-20] MEDS: FAMOTIDINE 20 MG INJ IV SCH (21:01)
[2018-10-20] MEDS: ENOXAPARIN 100 MG/ML SYG SC SCH (21:10)
[2018-10-21] VITALS (22 sets, daily range): BP systolic 115–143; BP diastolic 62–92; PULSE 102–124; RESP 14–35
[2018-10-21] MEDS: INSULIN ASPART [NOVOLOG] 3 ML PEN SC SCH ×6 (00:03→20:04)
[2018-10-21] MEDS: VANCOMYCIN 1 GM 250 ML IVPB SCH (01:30)
[2018-10-21] MEDS ORDERED: ACCU-CHEK XX SCH (02:00)
[2018-10-21] MEDS: POLYETHYLENE GLYCOL 17 GM PACKET PO SCH ×2 (09:00→20:01)
[2018-10-21] MEDS: TAMSULOSIN (SR) 0.4 MG CAP PO SCH (09:11)
[2018-10-21] MEDS: DAKINS 0.0125%(1/40) 473 ML SOLUTION TP SCH (09:12)
[2018-10-21] MEDS: SOD CHLORIDE 0.45% 1,000 ML IV SCH ×2 (10:51→23:20)
[2018-10-21] MEDS: CEFEPIME 2GM/50 ML (PMX) 50 ML IVPB SCH (12:37)
[2018-10-21] MEDS ORDERED: VANCOMYCIN 1 GM 250 ML IVPB SCH (13:00)
[2018-10-21] MEDS: FAMOTIDINE 20 MG INJ IV SCH (19:59)
[2018-10-21] MEDS: INSULIN GLARGINE [LANTus] (100 UNITS/ML) SYG SC SCH (20:04)
[2018-10-21] MEDS: ENOXAPARIN 80 MG/0.8 ML SYG SC SCH (20:11)
[2018-10-22] VITALS: BP 128/69; PULSE 94; RESP 19
[2018-10-22] MEDS: INSULIN ASPART [NOVOLOG] 3 ML PEN SC SCH ×6 (00:21→21:04)
[2018-10-22 04:00] VITALS: BP 111/49; PULSE 89; RESP 18
[2018-10-22 07:58] VITALS: BP 115/52; PULSE 97; RESP 20
[2018-10-22] MEDS: DEXTROSE 5% 1,000 ML IV SCH (09:33)
[2018-10-22] MEDS: TAMSULOSIN (SR) 0.4 MG CAP PO SCH (09:33)
[2018-10-22] MEDS: POLYETHYLENE GLYCOL 17 GM PACKET PO SCH ×2 (09:34→21:00)
[2018-10-22 11:45] VITALS: BP 124/78; PULSE 83; RESP 20
[2018-10-22] MEDS: CEFEPIME 2GM/50 ML (PMX) 50 ML IVPB SCH (14:23)
[2018-10-22] MEDS: DAKINS 0.0125%(1/40) 473 ML SOLUTION TP SCH (14:24)
[2018-10-22 15:36] VITALS: BP 120/64; PULSE 103; RESP 20
[2018-10-22] MEDS: VANCOMYCIN 1 GM 250 ML IVPB SCH (16:29)
[2018-10-22 20:00] VITALS: BP 119/58; PULSE 97; RESP 19
[2018-10-22] MEDS: ENOXAPARIN 80 MG/0.8 ML SYG SC SCH (21:04)
[2018-10-22] MEDS: INSULIN GLARGINE [LANTus] (100 UNITS/ML) SYG SC SCH (21:04)
[2018-10-22] MEDS: FAMOTIDINE 20 MG TAB PO SCH (22:51)
[2018-10-23] VITALS: BP 118/57; PULSE 107; RESP 18
[2018-10-23] MEDS: INSULIN ASPART [NOVOLOG] 3 ML PEN SC SCH ×6 (01:00→22:09)
[2018-10-23 04:00] VITALS: BP 123/68; PULSE 102; RESP 19
[2018-10-23] MEDS: DEXTROSE 5% 1,000 ML IV SCH ×3 (05:59→22:00)
[2018-10-23] MEDS: TAMSULOSIN (SR) 0.4 MG CAP PO SCH (08:38)
[2018-10-23] MEDS: POLYETHYLENE GLYCOL 17 GM PACKET PO SCH ×2 (09:00→22:02)
[2018-10-23 09:07] VITALS: BP 139/98; PULSE 92; RESP 18
[2018-10-23] MEDS: DAKINS 0.0125%(1/40) 473 ML SOLUTION TP SCH (11:16)
[2018-10-23] MEDS: CEFEPIME 2GM/50 ML (PMX) 50 ML IVPB SCH (11:17)
[2018-10-23 11:24] VITALS: BP 136/65; PULSE 99; RESP 18
[2018-10-23 16:18] VITALS: BP 128/76; PULSE 92; RESP 18
[2018-10-23] MEDS ORDERED: VANCOMYCIN 750 MG (PMX) 250 ML IVPB SCH (17:00)
[2018-10-23 20:00] VITALS: BP 137/70; PULSE 67; RESP 18
[2018-10-23] MEDS: ATORVASTATIN 80 MG TAB PO SCH (22:00)
[2018-10-23] MEDS: FAMOTIDINE 20 MG TAB PO SCH (22:00)
[2018-10-23] MEDS: ENOXAPARIN 80 MG/0.8 ML SYG SC SCH (22:09)
[2018-10-23] MEDS: INSULIN GLARGINE [LANTus] (100 UNITS/ML) SYG SC SCH (22:09)
[2018-10-24] VITALS: BP 136/72; PULSE 96; RESP 19
[2018-10-24] MEDS: INSULIN ASPART [NOVOLOG] 3 ML PEN SC SCH ×4 (01:33→12:07)
[2018-10-24 04:00] VITALS: BP 130/70; PULSE 85; RESP 20
[2018-10-24 07:45] VITALS: BP 144/69; PULSE 87; RESP 19
[2018-10-24] MEDS: POLYETHYLENE GLYCOL 17 GM PACKET PO SCH ×2 (08:36→21:50)
[2018-10-24] MEDS: TAMSULOSIN (SR) 0.4 MG CAP PO SCH (08:36)
[2018-10-24 11:45] VITALS: BP 139/66; PULSE 78; RESP 20
[2018-10-24] MEDS: CEFEPIME 2GM/50 ML (PMX) 50 ML IVPB SCH (11:57)
[2018-10-24] MEDS: DAKINS 0.0125%(1/40) 473 ML SOLUTION TP SCH (15:09)
[2018-10-24 15:30] VITALS: BP 150/95; PULSE 98; RESP 20
[2018-10-24] MEDS: Insulin NOVOLOG SS MODERATE Algorithm (SS with meals and bedtime) SC SCH ×2 (17:21→22:30)
[2018-10-24] MEDS ORDERED: INSULIN ASPART [NOVOLOG] 3 ML PEN SC SCH (17:30)
[2018-10-24 20:25] VITALS: BP 177/83; PULSE 96; RESP 18
[2018-10-24] MEDS: FAMOTIDINE 20 MG TAB PO SCH (21:50)
[2018-10-24] MEDS: ATORVASTATIN 80 MG TAB PO SCH (21:50)
[2018-10-24] MEDS: HYDROCODONE/APAP (5/325) TAB PO PRN (21:57)
[2018-10-24] MEDS: ENOXAPARIN 80 MG/0.8 ML SYG SC SCH (22:29)
[2018-10-24] MEDS: INSULIN GLARGINE [LANTus] (100 UNITS/ML) SYG SC SCH (22:30)
[2018-10-25] VITALS: BP 114/69; PULSE 88; RESP 19
[2018-10-25 04:00] VITALS: BP 138/84; PULSE 98; RESP 20
[2018-10-25 08:25] VITALS: BP 152/71; PULSE 99
[2018-10-25] MEDS: Insulin NOVOLOG SS MODERATE Algorithm (SS with meals and bedtime) SC SCH ×4 (08:25→21:00)
[2018-10-25] MEDS: SOD CHLORIDE 0.9% 1,000 ML IV SCH (10:04)
[2018-10-25] MEDS: POLYETHYLENE GLYCOL 17 GM PACKET PO SCH ×2 (10:04→22:35)
[2018-10-25] MEDS: TAMSULOSIN (SR) 0.4 MG CAP PO SCH (10:04)
[2018-10-25] MEDS: DAKINS 0.0125%(1/40) 473 ML SOLUTION TP SCH (10:05)
[2018-10-25] MEDS: CEFEPIME 2GM/50 ML (PMX) 50 ML IVPB SCH (12:08)
[2018-10-25 15:10] VITALS: BP 136/60; PULSE 75; RESP 19
[2018-10-25 20:00] VITALS: BP 143/67; PULSE 74; RESP 19
[2018-10-25] MEDS: ATORVASTATIN 80 MG TAB PO SCH (22:32)
[2018-10-25] MEDS: FAMOTIDINE 20 MG TAB PO SCH (22:33)
[2018-10-25] MEDS: ENOXAPARIN 80 MG/0.8 ML SYG SC SCH (22:40)
[2018-10-25] MEDS: INSULIN GLARGINE [LANTus] (100 UNITS/ML) SYG SC SCH (23:03)
[2018-10-26] VITALS: BP 159/74; PULSE 77; RESP 19
[2018-10-26 04:00] VITALS: BP 136/63; PULSE 78; RESP 18
[2018-10-26] MEDS: SOD CHLORIDE 0.9% 1,000 ML IV SCH ×2 (05:02→11:04)
[2018-10-26] MEDS: Insulin NOVOLOG SS MODERATE Algorithm (SS with meals and bedtime) SC SCH ×4 (07:41→21:00)
[2018-10-26 07:45] VITALS: BP 144/68; PULSE 72; RESP 18
[2018-10-26] MEDS: POLYETHYLENE GLYCOL 17 GM PACKET PO SCH ×2 (09:15→20:49)
[2018-10-26] MEDS: TAMSULOSIN (SR) 0.4 MG CAP PO SCH (09:15)
[2018-10-26] MEDS: DAKINS 0.0125%(1/40) 473 ML SOLUTION TP SCH (09:16)
[2018-10-26] MEDS: HYDROCODONE/APAP (5/325) TAB PO PRN (09:56)
[2018-10-26] MEDS: CEFEPIME 2GM/50 ML (PMX) 50 ML IVPB SCH (11:56)
[2018-10-26 12:11] VITALS: BP 142/67; PULSE 67; RESP 18
[2018-10-26 15:48] VITALS: BP 136/73; PULSE 73; RESP 18
[2018-10-26 20:00] VITALS: BP 135/68; PULSE 76; RESP 19
[2018-10-26] MEDS: FAMOTIDINE 20 MG TAB PO SCH (20:48)
[2018-10-26] MEDS: ATORVASTATIN 80 MG TAB PO SCH (20:48)
[2018-10-26] MEDS: APIXABAN 5 MG TABLET PO SCH (20:49)
[2018-10-26] MEDS: INSULIN GLARGINE [LANTus] (100 UNITS/ML) SYG SC SCH (21:00)
[2018-10-27] VITALS: BP 134/63; PULSE 75; RESP 19
[2018-10-27 04:00] VITALS: BP 142/57; PULSE 74; RESP 19
[2018-10-27] MEDS: Insulin NOVOLOG SS MODERATE Algorithm (SS with meals and bedtime) SC SCH ×2 (07:55→12:00)
[2018-10-27 07:56] VITALS: BP 148/68; PULSE 72; RESP 18
[2018-10-27] MEDS: TAMSULOSIN (SR) 0.4 MG CAP PO SCH (08:25)
[2018-10-27] MEDS: APIXABAN 5 MG TABLET PO SCH (08:26)
[2018-10-27] MEDS: POLYETHYLENE GLYCOL 17 GM PACKET PO SCH (08:26)
[2018-10-27] MEDS: DAKINS 0.0125%(1/40) 473 ML SOLUTION TP SCH (08:26)
[2018-10-27] MEDS: CEFEPIME 2GM/50 ML (PMX) 50 ML IVPB SCH ×2 (12:00→14:27)
[2018-10-27 12:03] VITALS: BP 155/83; PULSE 71; RESP 18
== END 2018-10-27 15:21 | DRG 871 ==
LOC: E/R 11:10 → ICU 14:45 → 6WM 10-21 22:22
PROVIDERS: ADMIT Hospitalist; ATTEND Internal Medicine
PROC: 3E0F7GC Introduction of Other Therapeutic Substance into Respiratory Tract, Via Natural or Artificial Opening (ICD-10-PCS; principal; 2018-10-19)
DX: A41.9 Sepsis, unspecified organism (principal); J18.9 Pneumonia, unspecified organism; R65.21 Severe sepsis with septic shock; G92 Toxic encephalopathy; N17.9 Acute kidney failure, unspecified; I42.9 Cardiomyopathy, unspecified; E87.2 Acidosis; E11.52 Type 2 diabetes mellitus with diabetic peripheral angiopathy with gangrene; L03.115 Cellulitis of right lower limb; I69.351 Hemiplegia and hemiparesis following cerebral infarction affecting right dominant side; I11.0 Hypertensive heart disease with heart failure; I50.9 Heart failure, unspecified; E11.8 Type 2 diabetes mellitus with unspecified complications; E11.42 Type 2 diabetes mellitus with diabetic polyneuropathy; I48.2 Chronic atrial fibrillation; E11.65 Type 2 diabetes mellitus with hyperglycemia; F03.90 Unspecified dementia, unspecified severity, without behavioral disturbance, psychotic disturbance, mood disturbance, and anxiety; I25.10 Atherosclerotic heart disease of native coronary artery without angina pectoris; F32.9 Major depressive disorder, single episode, unspecified; E78.5 Hyperlipidemia, unspecified; N40.0 Benign prostatic hyperplasia without lower urinary tract symptoms; I69.320 Aphasia following cerebral infarction; Z79.4 Long term (current) use of insulin; Z95.0 Presence of cardiac pacemaker; Z95.5 Presence of coronary angioplasty implant and graft; B95.61 Methicillin susceptible Staphylococcus aureus infection as the cause of diseases classified elsewhere
CPT/HCPCS: 36415; 70450; 71045; 73650; 73700; 80048; 80053; 80061; 80202; 81001; 81003; 82140; 82270; 82550; 82553; 82570; 82607; 82803; 82962; 83036; 83605; 83735; 83880; 84100; 84145; 84300; 84439; 84443; 84484; 85025; 85610; 85651; 85730; 86140; 87045; 87070; 87075; 87081; 87086; 87177; 92526; 92610; 93005; 93306; 93922; 95819; 96374; 96375; 97110; 97163; 97165; 97530; 97535; J0692; J1650; J1815; J3370; J7030; J7070

== ENCOUNTER 2018-10-29 18:42 | Inpatient (IN) | payer OTHER ==
[~2018-10-29] VITALS: Ht 167.6 cm; Wt 80.2 kg
[~2018-10-29 18:42] MED LIST changes: -FLUO10CA17 PO; -HEPA500021 IJ; -HYDR-3672 PO; -INSU100I33 SC; -Insulin Glargine SC; -SPIR100T4 PO
[2018-10-29] MEDS ORDERED: CEFEPIME 2GM/50 ML (PMX) 50 ML IVPB STA (20:05)
[2018-10-29] MEDS ORDERED: SODIUM CHLORIDE 0.9% 1L BAG IV* STA (20:05)
[2018-10-29] MEDS: ONDANSETRON 4 MG INJ IV STA ×2 (20:22→20:59)
[2018-10-29] MEDS: morphine 4 MG/ML VIAL IV STA ×2 (20:22→20:58)
[2018-10-29] MEDS ORDERED: VANCOMYCIN 1 GM (PMX) 250 ML IVPB ONE (20:30)
[2018-10-29] MEDS ORDERED: ONDANSETRON 4 MG INJ IV PRN ×2 (21:30→23:30)
[2018-10-29] MEDS ORDERED: ACETAMINOPHEN 325 MG TAB PO PRN ×3 (21:30→23:30)
[2018-10-29] MEDS ORDERED: POLYETHYLENE GLYCOL 17 GM PACKET PO PRN (23:00)
[2018-10-29] MEDS ORDERED: BISACODYL (EC) 5 MG TAB PO SCH (23:00)
[2018-10-29] MEDS ORDERED: BISACODYL (EC) 5 MG TAB PO PRN (23:30)
[2018-10-29] MEDS ORDERED: morphine 2 MG INJ IV PRN (23:30)
[2018-10-29] MEDS ORDERED: DOCUSATE SODIUM 100 MG CAP PO PRN (23:30)
[2018-10-29] MEDS ORDERED: VANCOMYCIN IV PER PHARMACY XX SCH (23:30)
[2018-10-29] MEDS ORDERED: NACL 0.9% 3 ML SYG IV SCH (23:30)
[2018-10-29] MEDS ORDERED: HYDROCODONE/APAP (5/325) TAB PO PRN (23:30)
[2018-10-29 23:34] VITALS: Ht 167.6 cm; Wt 80.2 kg
[2018-10-30] VITALS (8 sets, daily range): BP systolic 117–201; BP diastolic 73–106; PULSE 76–88; RESP 17–27
[2018-10-30] MEDS ORDERED: ENOXAPARIN 100 MG/ML SYG SC SCH
[2018-10-30] MEDS ORDERED: hydrALAzine 20 MG INJ IV PRN (00:30)
[2018-10-30] MEDS ORDERED: AMLODIPINE 5 MG TAB PO ONE (00:30)
[2018-10-30] MEDS ORDERED: ENOXAPARIN 80 MG/0.8 ML SYG SC SCH (01:00)
[2018-10-30] MEDS: TAMSULOSIN (SR) 0.4 MG CAP PO SCH ×2 (01:53→20:33)
[2018-10-30] MEDS: ATORVASTATIN 80 MG TAB PO SCH ×2 (01:53→20:33)
[2018-10-30] MEDS ORDERED: VANCOMYCIN 500 MG (PMX) 100 ML IVPB SCH (02:00)
[2018-10-30] MEDS ORDERED: GLUCAGON 1 MG INJ IM PRN (02:00)
[2018-10-30] MEDS ORDERED: GLUCOSE GEL 15 GRAM TUBE PO PRN ×2 (02:00)
[2018-10-30] MEDS: ACCU-CHEK XX SCH (02:00)
[2018-10-30] MEDS ORDERED: GLUCOSE GEL 15 GRAM TUBE BUCCAL PRN (02:00)
[2018-10-30] MEDS ORDERED: DEXTROSE 50% 50 ML SYRINGE IV PRN ×2 (02:00)
[2018-10-30] MEDS: INSULIN ASPART [NOVOLOG] 3 ML PEN SC SCH ×4 (08:30→20:38)
[2018-10-30] MEDS: ENOXAPARIN 80 MG/0.8 ML SYG SC SCH (08:30)
[2018-10-30] MEDS: INSULIN GLARGINE [LANTus] (100 UNITS/ML) SYG SC SCH (08:31)
[2018-10-30] MEDS: CEFEPIME 1GM/50 ML (PMX) 50 ML IVPB SCH ×2 (08:31→20:33)
[2018-10-30] MEDS: FERROUS SULFATE (EC) 325 MG TAB PO SCH (08:33)
[2018-10-30] MEDS: FUROSEMIDE 20 MG TAB PO SCH (08:33)
[2018-10-30] MEDS: BISACODYL (EC) 5 MG TAB PO SCH (08:33)
[2018-10-30] MEDS: BENAZEPRIL 5 MG TAB PO SCH (08:33)
[2018-10-30] MEDS ORDERED: AMLODIPINE 5 MG TAB PO SCH (09:00)
[2018-10-30] MEDS ORDERED: EPOETIN ALFA-EPBX (NON-ESRD 10,000 UNIT/ML VIAL SC SCH (17:00)
[2018-10-30] MEDS: AMLODIPINE 5 MG TAB PO SCH (20:33)
[2018-10-31 01:24] VITALS: BP 159/83; PULSE 78; RESP 17
[2018-10-31] MEDS ORDERED: VANCOMYCIN 1 GM 250 ML IVPB SCH (02:00)
[2018-10-31] MEDS: ACCU-CHEK XX SCH (02:00)
[2018-10-31 07:42] VITALS: BP 138/83; PULSE 91; RESP 18
[2018-10-31] MEDS: INSULIN GLARGINE [LANTus] (100 UNITS/ML) SYG SC SCH (08:42)
[2018-10-31] MEDS: ENOXAPARIN 80 MG/0.8 ML SYG SC SCH (08:44)
[2018-10-31] MEDS: INSULIN ASPART [NOVOLOG] 3 ML PEN SC SCH ×2 (08:44→12:35)
[2018-10-31] MEDS: BISACODYL (EC) 5 MG TAB PO SCH (08:46)
[2018-10-31] MEDS: BENAZEPRIL 5 MG TAB PO SCH (08:46)
[2018-10-31] MEDS: FERROUS SULFATE (EC) 325 MG TAB PO SCH (08:46)
[2018-10-31] MEDS: AMLODIPINE 5 MG TAB PO SCH (08:47)
[2018-10-31] MEDS: FUROSEMIDE 20 MG TAB PO SCH (08:47)
[2018-10-31] MEDS: CEFEPIME 1GM/50 ML (PMX) 50 ML IVPB SCH (08:48)
[2018-10-31] MEDS ORDERED: POVIDONE IODINE 10% 28.4 GM OINT TOP SCH (10:30)
[2018-10-31 13:59] VITALS: BP 127/60; PULSE 83; RESP 18
[2018-10-31] MEDS ORDERED: DAKINS 0.0125%(1/40) 473 ML SOLUTION TP SCH (21:00)
== END 2018-10-31 17:46 | disposition left against medical advice (07) | DRG 300 ==
LOC: E/R 18:42 → MS3 21:09
PROVIDERS: ADMIT Family Medicine; ATTEND Family Medicine
DX: E11.52 Type 2 diabetes mellitus with diabetic peripheral angiopathy with gangrene (principal); I96 Gangrene, not elsewhere classified; I13.0 Hypertensive heart and chronic kidney disease with heart failure and stage 1 through stage 4 chronic kidney disease, or unspecified chronic kidney disease; I50.22 Chronic systolic (congestive) heart failure; I69.359 Hemiplegia and hemiparesis following cerebral infarction affecting unspecified side; E87.1 Hypo-osmolality and hyponatremia; L89.519 Pressure ulcer of right ankle, unspecified stage; E11.22 Type 2 diabetes mellitus with diabetic chronic kidney disease; N18.9 Chronic kidney disease, unspecified; I48.0 Paroxysmal atrial fibrillation; E11.42 Type 2 diabetes mellitus with diabetic polyneuropathy
CPT/HCPCS: 36415; 71045; 73630; 80048; 82550; 82553; 82728; 82962; 83540; 83605; 83735; 84100; 84484; 85025; 85610; 85651; 85730; 86140; 86320; 86325; 87081; 92526; 92610; 93005; 93971; 96374; 96375; J0692; J1815; J2270; J2405; J3370; J7030; Q5106